=== PATIENT | male | born 1970 | race Caucasian/White ===

== ENCOUNTER 2019-08-18 08:51 | Emergency (ER) | payer BC, SELFPAY ==
[2019-08-18 09:00] VITALS: BP 159/108; PULSE 103; RESP 20; TEMP 36.6; O2SAT 97
--- NOTE | 2019-08-18 09:01 | ED_ITS ---
Entered by Rad Berumen, acting as scribe for HPI - Chest Pain General: Chief Complaint: Chest Pain Stated Complaint: CP SNYCOPE Time Seen by Provider: 08/18/19 09:05 History of Present Illness: HPI narrative: 49 yo male presents with chest pain. Pt states that he had a syncopal episode. Pt states that he has been nauseated. Pt states that he has a leaking heart valve. Pt seems lethargic. MD complaint: chest pain Associated symptoms: Reports nausea; Deny abdominal pain, dyspnea, palpitations or vomiting Review of Systems Eyes: Denies: change in vision, blurry vision, blind spots or eye redness ENMT: Denies: throat pain, uvular edema, enlarged tonsils, painful swallowing, hoarseness or mouth pain Card: Reports: chest pain; Denies: palpitations, irregular heart rhythm, edema, swelling of feet/ankles or lightheadedness Resp: Denies: shortness of breath, productive cough, non-productive cough, wheezing or stridor GI: Reports: nausea; Denies: abdominal pain, vomiting, vomiting blood, coffee grounds in vomit, difficulty swallowing or heartburn/indigestion : Denies: flank pain, difficulty urinating, painful urination or urinary frequency Musc: Denies: neck pain, back pain, extremity pain, extremity swelling or joint swelling Skin/Breast: Denies: rash, itching, redness, sensitivity to light or skin pain Neuro: Denies: headache, numbness in extremities, weakness in extremities or changes in sensation Psych: Denies: anxiety, depression, mood swings or panic attacks Endo: Denies: excessive urination, excessive thirst or tired all the time PFSH ED PFSH: Statuses (acute, chronic, etc) shown below reflect problem list status as previously entered and may not be historically accurate Medical History Encephalopathy (Acute) Sciatica (Acute) Social History Smoking and tobacco status: current every day smoker Substance/Drug Use: current Substance/Drug use type: Marijuana Physical Exam Const: COMMON NORMALS: no apparent distress, average body habitus, oriented x3, no limitations, healthy appearing, alert and well nourished HENMT: COMMON NORMALS: normocephalic, head/scalp atraumatic, hearing grossly normal bilaterally, external ears normal, EAC's normal, TM's normal bilaterally, external nose normal, nasal mucous membranes and turbinates normal, moist oral mucous membranes, oropharynx normal, dentition normal and gingiva normal HEAD & SCALP: normocephalic and atraumatic NOSE: external nose normal and nasal mucous membranes and turbinates normal EXTERNAL EAR: Yes external ears normal EXTERNAL AUDITORY CANAL: EAC's normal TYMPANIC MEMBRANE: TM's normal bilaterally THROAT: no uvular edema Eye: COMMON NORMALS: PERRL, EOMs intact bilaterally, conjunctivae normal, no scleral icterus, no papilledema, normal visual dwyer by confrontation and fundi normal bilaterally CONJUNCTIVA: Yes conjunctivae normal PUPIL: Yes PERRL DIRECT OPHTHALMOSCOPY: Yes no papilledema and Yes fundi normal bilaterally Neck/C-Spine: COMMON NORMALS: full ROM, no lymphadenopathy, supple, no meningeal signs, no JVD, thyroid normal and no carotid bruits THYROID: thyroid normal Chest: COMMONS NORMALS: inspection of chest normal and palpation of chest normal Resp: COMMON NORMALS: normal respiratory effort, no retractions, no use of accessory muscles, clear to auscultation bilaterally and percussion normal AUSCULTATION: clear to auscultation bilaterally PERCUSSION: percussion normal Cardio: COMMON NORMALS: no JVD, regular rate, regular rhythm, S1 normal heart sound, S2 normal heart sound, no gallops, no clicks, no murmurs, no rub and peripheral pulses 2+ throughout RATE: regular rate RHYTHM: regular rhythm HEART SOUNDS: S1 normal and S2 normal PERIPHERAL PULSES: pulses 2+ throughout GI: COMMON NORMALS: normal to inspection, nondistended, normoactive bowel sounds, soft to palpation, non-tender, no hepatosplenomegaly, no masses and no bruits PALPATION: Yes soft and Yes no hepatosplenomegaly : COMMON NORMALS: Yes no CVA tenderness BLADDER/KIDNEY EXAM: Yes no CVA tenderness Back/Pelvis: COMMON NORMALS: no CVA tenderness, thoracic and lumbar spine normal to inspection, no thoracic nor lumbar tenderness, thoraco-lumbar ROM nor mal and straight leg raise negative bilaterally Extremity: COMMON NORMALS: normal to inspection, full ROM, normal capillary refill, no joint enlargement, no clubbing, cyanosis or edema, no calf tenderness and no pedal edema Neuro: COMMON NORMALS: oriented x3 SENSORIUM/ORIENTATION: Yes alert MENINGEAL SIGNS: Yes no meningeal signs Skin: COMMON NORMALS: no rashes or lesions noted, no wounds, skin turgor normal, no jaundice, no petechiae and no mottling GENERAL SKIN EXAM: no rashes or lesions noted and turgor normal Course Vital Signs: Vital signs: Vital Signs Temperature 97.9 F 08/18/19 09:00 Pulse Rate 103 H 08/18/19 09:00 Respiratory Rate 20 H 08/18/19 09:00 Blood Pressure 159/108 08/18/19 09:00 Pulse Oximetry 97 08/18/19 09:00 MDM - Chest Pain Lab Data: Labs: Lab Results 08/18/19 08/18/19 08/18/19 Range/Units 09:15 09:15 09:15 WBC 13.5 H (4.0-10.0) 10^3/ uL RBC 4.15 (4.1-5.3) 10^6/u L Hgb 13.5 (11.7-16.6) g/dL Hct 40.2 L (42.0-52.0) % MCV 96.9 H (80-94) fL MCH 32.5 (28.0-34.0) pg MCHC 33.6 (30.0-36.0) g/dL RDW 12.9 (12.1-15.1) % Plt Count 309 (130-400) 10^3/c mm MPV 9.5 (7.4-10.4) fL Neut % (Auto) 61.1 % Lymph % (Auto) 30.2 % [place] % (Auto) 6.5 % Eos % (Auto) 1.3 % Baso % (Auto) 0.5 % Neut # (Auto) 8.3 H (1.8-7.7) 10^3/u L Lymph # (Auto) 4.1 (0.8-4.8) 10^3/u L [place] # (Auto) 0.9 (0.2-0.9) 10^3/u L Eos # (Auto) 0.2 (0.0-0.8) 10^3/u L Baso # (Auto) 0.1 (0.0-0.1) 10^3/u L Nucleated RBC % (a uto) 0 % Nucleated RBCs # 0.0 /100WBC Sodium 137 (136-145) mmol/L Potassium 3.6 (3.5-5.1) mmol/L Chloride 101 (98-107) mmol/L Carbon Dioxide 25 (22-29) mmol/L Anion Gap 14.6 (5-19) BUN 13 (6-20) mg/dL Creatinine 0.7 (0.7-1.2) mg/dL GFR Calculation 120.9 (90-130) mL/min Glucose 119 H (74-109) mg/dL Calcium 9.8 (8.5-10.5) mg/dL Total Bilirubin 0.3 (0.15-1.2) mg/dL AST 32 (0-40) U/L ALT 23 (0-41) U/L Alkaline Phosphata se 92 (40-130) IU/L Troponin T Baselin e 8 (0-15) ng/mL Troponin T 120 Min [place] (0-15) ng/mL Delta Troponin T (0-10) ABS# Total Protein 7.3 (6.6-8.7) g/dL Albumin 4.5 (3.5-5.2) g/dL Globulin 2.8 (1.3-4.6) g/dL Urine Color (Yellow) Urine Appearance (CLEAR) Urine pH (5-7) Ur Specific Gravit y (1.005-1.030) Urine Protein (Negative) Urine Glucose (UA) (Normal) Urine Ketones (Negative) Urine Occult Blood (Negative) Urine Nitrate (Negative) Urine Bilirubin (NEGATIVE) Urine Urobilinogen (Negative) mg/dL Ur Leukocyte [place] a[place] (Negative) Urine RBC (0-2) /hpf Urine WBC (0-5) /hpf Ur Squamous Epith Cells (0-5) Urine Bacteria (NONE) Urine Opiates Scre en (Negative) ng/mL Ur Barbiturates Sc reen (Negative) ng/mL Ur Phencyclidine S crn (Negative) ng/mL Ur Amphetamines Sc reen (Negative) ng/mL U Benzodiazepines Scrn (Negative) ng/mL Urine Cocaine Scre en (Negative) ng/mL U Marijuana (THC) Screen (Negative) ng/mL 08/18/19 08/18/19 08/18/19 Range/Units 10:46 10:46 11:22 WBC (4.0-10.0) 10^3/ uL RBC (4.1-5.3) 10^6/u L Hgb (11.7-16.6) g/dL Hct (42.0-52.0) % MCV (80-94) fL MCH (28.0-34.0) pg MCHC (30.0-36.0) g/dL RDW (12.1-15.1) % Plt Count (130-400) 10^3/c mm MPV (7.4-10.4) fL Neut % (Auto) % Lymph % (Auto) % [place] % (Auto) % Eos % (Auto) % Baso % (Auto) % Neut # (Auto) (1.8-7.7) 10^3/u L Lymph # (Auto) (0.8-4.8) 10^3/u L [place] # (Auto) (0.2-0.9) 10^3/u L Eos # (Auto) (0.0-0.8) 10^3/u L Baso # (Auto) (0.0-0.1) 10^3/u L Nucleated RBC % (a uto) % Nucleated RBCs # /100WBC Sodium (136-145) mmol/L Potassium (3.5-5.1) mmol/L Chloride (98-107) mmol/L Carbon Dioxide (22-29) mmol/L Anion Gap (5-19) BUN (6-20) mg/dL Creatinine (0.7-1.2) mg/dL GFR Calculation (90-130) mL/min Glucose (74-109) mg/dL Calcium (8.5-10.5) mg/dL Total Bilirubin (0.15-1.2) mg/dL AST (0-40) U/L ALT (0-41) U/L Alkaline Phosphata se (40-130) IU/L Troponin T Baselin e (0-15) ng/mL Troponin T 120 Min [place] 7.85 (0-15) ng/mL Delta Troponin T -0.15 L (0-10) ABS# Total Protein (6.6-8.7) g/dL Albumin (3.5-5.2) g/dL Globulin (1.3-4.6) g/dL Urine Color Yellow (Yellow) Urine Appearance Clear (CLEAR) Urine pH 7 (5-7) Ur Specific Gravit y 1.005 (1.005-1.030) Urine Protein Neg (Negative) Urine Glucose (UA) Norm (Normal) Urine Ketones Negative (Negative) Urine Occult Blood 2+ H (Negative) Urine Nitrate Negative (Negative) Urine Bilirubin Neg (NEGATIVE) Urine Urobilinogen Norm (Negative) mg/dL Ur Leukocyte [place] Negative (Negative) Urine RBC 5-10 H (0-2) /hpf Urine WBC 0-4 H (0-5) /hpf Ur Squamous Epith Cells 0-4 H (0-5) Urine Bacteria t (NONE) Urine Opiates Scre en Negative (Negative) ng/mL Ur Barbiturates Sc reen Negative (Negative) ng/mL Ur Phencyclidine S crn Negative (Negative) ng/mL Ur Amphetamines Sc reen Positive H (Negative) ng/mL U Benzodiazepines Scrn Negative (Negative) ng/mL Urine Cocaine Scre en Negative (Negative) ng/mL U Marijuana (THC) Screen Negative (Negative) ng/mL Discharge Plan Discharge Clinical Impression: Atypical chest pain Chest pain Qualifiers: Chest pain type: pleurodynia Qualified Code(s): R07.81 - Pleurodynia Condition: Stable Prescriptions: No Action No Known Home Medications RF: 0 Discharge Orders: Discharge Order (Routine); Ordered 08/18/19 Ordered By: Mitchell Decker Referrals: Tito Wu MD [Family Provider] - Coding Level of Care Code ED Statistics Intern for Chg Fwd Exam Problem Focused The documentation recorded by the Ata dia Kialy, accurately reflects the service I personally performed and the decisions made by , Mitchell Decker, Aug 18, 2019 08:51
--- NOTE | 2019-08-18 09:01 | PC.NURSE ---
EKG done at 0900 and shown to ER doctor
--- NOTE | 2019-08-18 09:03 | ECG_ITS ---
Measurements Intervals [place] Rate: 94 P: 77 TN: 172 QRS: 81 QRSD: 86 T: 69 QT: 360 QTc: 450 SINUS RHYTHM POSSIBLE LEFT ATRIAL ENLARGEMENT [-0.1mV P WAVE IN V1/V2] Compared to ECG 05/16/2019 03:13:35 No significant changes Electronically Signed On 08-18-2019 11:37:52 [employer]IG[employer] MACHINE FEEDER by Germain Byers M.D. [id number] f
--- NOTE | 2019-08-18 09:04 | XR_ITS ---
WS: [id number] Portable AP upright chest, 08/18/2019 Clinical Data: cough/congestion Comparison: Portable chest, 05/16/2019. Findings: No nodules, masses or effusions are seen. The heart is normal. The pulmonary vascularity is not increased. No pneumonia or pneumothorax is seen. Monitor leads on the chest wall. XR/XR chest 1V portable [id number] Impression: Negative chest.
--- NOTE | 2019-08-18 09:05 | W.ED.CHESTPA ---
HPI - Chest Pain General: Chief Complaint: Chest Pain Stated Complaint: CP SNYCOPE Time Seen by Provider: 08/18/19 09:05 [facility] ED PFSH: Statuses (acute, chronic, etc) shown below reflect problem list status as previously entered and may not be historically accurate Medical History Encephalopathy (Acute) Sciatica (Acute) Social History Smoking and tobacco status: current every day smoker Course Vital Signs: Vital signs: Vital Signs Temperature 97.9 F 08/18/19 09:00 Pulse Rate 103 H 08/18/19 09:00 Respiratory Rate 20 H 08/18/19 09:00 Blood Pressure 159/108 08/18/19 09:00 Pulse Oximetry 97 08/18/19 09:00 Discharge Plan Discharge Prescriptions: No Action No Known Home Medications RF: 0 Coding Level of Care Code ED Discharge Coordinator for Rosina Valencia
[2019-08-18 09:36] LABS: Basophils # 0.1 10^3/uL (0.0-0.1); Basophils % 0.5 %; Eosinophils # 0.2 10^3/uL (0.0-0.8); Eosinophils % 1.3 %; Hematocrit 40.2 % (42.0-52.0); Hemoglobin 13.5 g/dL (11.7-16.6); Lymphocytes # 4.1 10^3/uL (0.8-4.8); Lymphocytes % 30.2 %; Mean Corpuscular HGB Conc 33.6 g/dL (30.0-36.0); Mean Corpuscular Hemoglobin 32.5 pg (28.0-34.0); Mean Corpuscular Volume 96.9 fL (80-94); Mean Platelet Volume 9.5 fL (7.4-10.4); Monocytes # 0.9 10^3/uL (0.2-0.9); Monocytes % 6.5 %; Neutrophils # 8.3 10^3/uL (1.8-7.7); Neutrophils % 61.1 %; Nucleated Red Blood Cells % 0 %; Platelet Count 309 10^3/cmm (130-400); Red Blood Count 4.15 10^6/uL (4.1-5.3); Red Cell Distribution Width 12.9 % (12.1-15.1); White Blood Count 13.5 10^3/uL (4.0-10.0)
[2019-08-18 09:45] LABS: Alanine Aminotransferase 23 U/L (0-41); Albumin Level 4.5 g/dL (3.5-5.2); Alkaline Phosphatase 92 IU/L (40-130); Anion Gap 14.6 (5-19); Aspartate Amino Transferase 32 U/L (0-40); Blood Urea Nitrogen 13 mg/dL (6-20); Calcium 9.8 mg/dL (8.5-10.5); Carbon Dioxide 25 mmol/L (22-29); Chloride 101 mmol/L (98-107); Globulin 2.8 g/dL (1.3-4.6); Glomerular Filtration Rate 120.9 mL/min (90-130); Glucose 119 mg/dL (74-109); Potassium 3.6 mmol/L (3.5-5.1); Sodium 137 mmol/L (136-145); Total Bilirubin 0.3 mg/dL (0.15-1.2); Total Protein 7.3 g/dL (6.6-8.7)
[2019-08-18 09:47] LABS: Troponin(5th) Baseline 8 ng/mL (0-15)
[2019-08-18 11:27] LABS: Add Urine Microscopic? YES; Bilirubin Urine Neg (NEGATIVE); Blood Urine 2+ (Negative); Glucose Urine UA Norm (Normal); Ketones Urine Negative (Negative); Leukocyte Esterase Urine Negative (Negative); Nitrate Urine Negative (Negative); Protein Urine Neg (Negative); Specific Gravity, Urine 1.005 (1.005-1.030); Urine Appearance Clear (CLEAR); Urine Color Yellow (Yellow); Urobilinogen Urine Norm (Negative); pH Urine 7 (5-7)
[2019-08-18 11:35] LABS: Bacteria Urine t; Squamous Epithelial Cell Urine 0-4 (0-5); WBC Urine 0-4 /hpf (0-5)
[2019-08-18 11:36] LABS: Add Urine Culture? No
[2019-08-18 11:54] LABS: Barbiturates Screen Urine Negative (Negative); Benzodiazepines Screen Urine Negative (Negative); Cocaine Screen Urine Negative (Negative); Opiate Screen Urine Negative (Negative); PCP Screen Urine Negative (Negative); THC Screen Urine Negative (Negative)
[2019-08-18 12:05] LABS: Amphetamines Screen Urine Positive (Negative)
[2019-08-18 12:06] LABS: Troponin 5 2HR 7.85 ng/mL (0-15); Troponin 5 2HR Delta -0.15 ABS# (0-10)
--- NOTE | 2019-08-18 12:26 | ECG_ITS ---
Measurements Intervals [place] Rate: 73 P: 79 SD: 187 QRS: 86 QRSD: 85 T: 70 QT: 399 QTc: 441 SINUS RHYTHM POSSIBLE LEFT ATRIAL ENLARGEMENT [-0.1mV P WAVE IN V1/V2] Compared to ECG 08/18/2019 08:59:25 No significant changes Electronically Signed On 08-18-2019 17:36:56 [employer] ARCHITECT by Germain Byers M.D. [id number] f
[2019-08-18 12:29] VITALS: PULSE 79; RESP 14; O2SAT 96
== END 2019-08-18 12:36 | disposition home or self-care (01) ==
PROVIDERS: Physician Assistant; Emergency Provider Family Medicine; Family Provider Family Medicine
DX: R07.81 Pleurodynia (principal); F17.210 Nicotine dependence, cigarettes, uncomplicated
CPT/HCPCS: 36415; 71045; 80053; 80307; 81001; 84484; 85025; 93005; 99281

== ENCOUNTER 2020-03-11 18:07 | Emergency (ER) | payer SELFPAY ==
--- NOTE | 2020-03-11 18:14 | XRR_ITS ---
PROCEDURE INFORMATION: Exam: XR Chest, 1 View Exam date and time: 03/11/2020 6:28 PM Age: 49 years old Clinical indication: Chest pain. TECHNIQUE: Imaging protocol: XR of the chest Views: 1 view. COMPARISON: CR XR chest 1V portable [id number] 08/18/2019 9:20 AM FINDINGS: Lungs: No lung consolidation or pulmonary edema. Pleural space: No pleural effusion or pneumothorax. Heart/Mediastinum: The cardiac silhouette is not enlarged. The mediastinal contours are normal. Bones/joints: No acute osseous abnormality. XR/XR chest 1V portable [id number] IMPRESSION: No acute abnormality.
--- NOTE | 2020-03-11 18:14 | ECG_ITS ---
[facility] Test Date: 2020-03-11 Pat Name: Joe Ramirez Department: Room: Gender: Male Numerical Control Operator: : 1970 Requested By: Jr Martinez Order Number: [id number] Amrando MD: Shai Dangelo M.D. Measurements Intervals [place] Rate: 100 P: 78 IL: 156 QRS: 81 QRSD: 83 T: 71 QT: 350 QTc: 451 Interpretive Statements SINUS TACHYCARDIA POSSIBLE LEFT ATRIAL ENLARGEMENT [-0.1mV P WAVE IN V1/V2] ABNORMAL RHYTHM ECG Compared to ECG 08/18/2019 11:00:06 Sinus rhythm no longer present Electronically Signed On 03-11-2020 18:29:44 CDT by Shai Dangelo M.D. [id number] f
[2020-03-11 18:25] VITALS: BP 124/72; PULSE 75; RESP 15; TEMP 36.9; O2SAT 94; BMI 22.8
--- NOTE | 2020-03-11 18:26 | CTR_ITS ---
PROCEDURE INFORMATION: Exam: CT Angiography Chest With Contrast Exam date and time: 03/11/2020 6:45 PM Age: 49 years old Clinical indication: Right-sided chest pain; Patient HX: R pleuritic cp w hypoxia TECHNIQUE: Imaging protocol: Computed tomographic angiography of the chest with intravenous contrast. 3D rendering (Not supervised by radiologist): MIP and/or 3D reconstructed images were created by the technologist. Radiation optimization: All CT scans at this facility use at least one of these dose optimization techniques: automated exposure control; mA and/or kV adjustment per patient size (includes targeted exams where dose is matched to clinical indication); or iterative reconstruction. Contrast material: OMNI 350; Contrast volume: 95 ml; Contrast route: INTRAVENOUS (IV); COMPARISON: CR XR chest 1V portable [id number] 03/11/2020 6:18 PM RADIATION DOSE METRICS: Total DLP (mGy-cm): 534.63 FINDINGS: There are degenerative changes of the spine. The lungs are clear of infiltrate. There is no pleural effusion. There is no pneumothorax. There are no suspicious pulmonary nodules. The central airways are normal in caliber. Small axillary lymph nodes are present. There is no mediastinal adenopathy. Small hilar lymph nodes are present. Interrogation of the pulmonary arteries in multiple planes shows no evidence for pulmonary embolism. The aorta is normal in caliber with no evidence for aneurysm or dissection. The heart is normal in size. There is no evidence for right heart failure. The upper abdominal structures are unremarkable. CT/CT angio chest PE protcl [id number] IMPRESSION: 1. No evidence for pulmonary embolism. 2. No focal infiltrates. Radiation Dose CTDIVOL = (mGy): DLP = 534.63 (mGy-cm)
--- NOTE | 2020-03-11 18:26 | CTR_ITS ---
PROCEDURE INFORMATION: Exam: CT Head Without Contrast Exam date and time: 03/11/2020 6:45 PM Age: 49 years old Clinical indication: Altered mental status/memory loss; Confusion or disorientation; Patient HX: AMS w hypoxia TECHNIQUE: Imaging protocol: Computed tomography of the head without contrast. Radiation optimization: All CT scans at this facility use at least one of these dose optimization techniques: automated exposure control; mA and/or kV adjustment per patient size (includes targeted exams where dose is matched to clinical indication); or iterative reconstruction. COMPARISON: CT head wo con* [id number] 12/09/2018 4:32 PM RADIATION DOSE METRICS: Total DLP (mGy-cm): 1396.66 FINDINGS: The ventricles, sulci and basilar cisterns appear normal for the patient's stated age. There is no evidence of mass, hemorrhage or infarct. No extra-axial fluid collections are identified. There is no midline shift. There is no evidence of fracture. The visualized paranasal sinuses are well-aerated. CT/CT head wo con* [id number] IMPRESSION: No evidence for acute infarct, mass or hemorrhage. Radiation Dose CTDIVOL = (mGy): DLP = 1396.66 (mGy-cm)
[2020-03-11 18:27] LABS: Glucose Point of Care 82 mg/dL (70-110)
[2020-03-11 18:37] LABS: Basophils # 0.1 10^3/uL (0.0-0.1); Basophils % 0.7 %; Eosinophils # 0.4 10^3/uL (0.0-0.8); Eosinophils % 2.4 %; Hematocrit 39.2 % (42.0-52.0); Hemoglobin 12.7 g/dL (11.7-16.6); Lymphocytes # 5.2 10^3/uL (0.8-4.8); Lymphocytes % 33.1 %; Mean Corpuscular HGB Conc 32.4 g/dL (30.0-36.0); Mean Corpuscular Hemoglobin 32.5 pg (28.0-34.0); Mean Corpuscular Volume 100.3 fL (80-94); Mean Platelet Volume 9.8 fL (7.4-10.4); Monocytes # 1.1 10^3/uL (0.2-0.9); Monocytes % 7.1 %; Neutrophils # 8.81 10^3/uL (1.8-7.7); Neutrophils % 56.4 %; Nucleated Red Blood Cells % 0 %; Platelet Count 291 10^3/cmm (130-400); Red Blood Count 3.91 10^6/uL (4.1-5.3); Red Cell Distribution Width 13.6 % (12.1-15.1); White Blood Count 15.6 10^3/uL (4.0-10.0)
[2020-03-11] MEDS: sodium chloride 0.9% 1,000 ML 999 ML IV (18:42)
[2020-03-11 18:51] LABS: Troponin(5th) Baseline 6 ng/L (0-15)
[2020-03-11 18:51] LABS: ABG PCO2 40.1 mmHg (35-45); ABG PH Result 7.46 (7.35-7.45); Arterial Blood Gas Hematocrit 38.3 % (42-52); Base Excess ABG 4.2 mmol/L (-2.0-2.0); Blood Gas Allen Test Pos; Blood Gas Operator Identificat CAK; Blood Gas Sample Site Radial, left; Blood Gas Sample Type Arterial; HCO3 ABG 28.4 mmol/L (22-26); HGB O2 Sat 86.6 % (95-100); Methemoglobin 1.1 % (0.4-1.5); Oxygen Device ROOM AIR; PO2 ABG 62.4 mmHg (80.0-100.0); Total Hemoglobin 12.5 g/dL (14-18)
--- NOTE | 2020-03-11 18:58 | ED_ITS ---
HPI - General Adult General: Chief complaint: General Medical Stated complaint: SOB;CP Time Seen by Provider: 03/11/20 18:23 History of Present Illness: HPI narrative: 49-year-old male with a history of right-sided pleuritic type chest pain. He began to shortness of breath, and was more lethargic at home. His does not know if he had fallen or not. He did not admit to any falls. He is somewhat lethargic, and answers only simple questions appropriately. He does localize to tenderness. He opens his eyes to voice. No fever, no cough. Just shortness of breath and pain. No exposure to coronavirus. Onset (ago): day(s) Location: chest Radiation: non-radiation Severity: severe Quality: aching and sharp Pain Consistency: constant Associated symptoms: Reports chest pain, confusion and dyspnea; Deny cough, headache(s), nausea, rash, palpitations or vomiting Review of Systems Const: Denies: fever(s) or chills Eyes: Denies: change in vision ENMT: Denies: swelling of lips/tongue or sinus pain Card: Reports: chest pain; Denies: palpitations, irregular heart rhythm or edema Resp: Reports: dyspnea GI: Denies: nausea or vomiting : Denies: difficulty urinating or hematuria Musc: Denies: back pain Skin/Breast: Denies: rash or erythema Neuro: Reports: confusion; Denies: headache(s), dizziness or vertigo Psych: Denies: anxiety [facility] PFSH: Medical History (Updated 03/11/20 @ 21:50 by Harlan Byrd DO) Encephalopathy Sciatica Social History Smoking and tobacco status: current every day smoker Physical Exam Const: EXAM LIMITATIONS: altered mental status GENERAL APPEARANCE: in distress and ill appearing HENMT: HEAD & SCALP: normal to inspection Eye: COMMON NORMALS: Equal, round and reactive pupils present and EOMs intact bilaterally PUPIL: Yes Equal, round and reactive pupils present Chest: COMMONS NORMALS: normal inspection of the chest CHEST: Yes localized rib tenderness with anteroposterior compression and Yes tenderness (Right lower chest wall) Resp: AUSCULTATION: rhonchi, wheezes right lower and breath sounds present Cardio: COMMON NORMALS: regular rate, regular rhythm and Peripheral pulses 2+ throughout RATE: regular rate RHYTHM: regular rhythm PERIPHERAL PULSES: Peripheral pulses 2+ throughout GI: INSPECTION: Yes normal to inspection, No abdominal wall ecchymosis and No abdominal distension PALPATION: No Tenderness to palpation present (GI) Neuro: HAMZAH COMA SCALE: document GCS findings Hamzah coma scale eye opening: To sound Fowler coma scale verbal response: Words Hamzah coma scale motor response: Localising Hamzah coma scale total score: 11 SENSORIUM/ORIENTATION: Yes somnolent Course Vital Signs: Vital signs: Vital Signs Temperature 98.5 F 03/11/20 18:25 Pulse Rate 78 03/11/20 21:57 Respiratory Rate 16 03/11/20 21:57 Blood Pressure 124/78 03/11/20 21:57 Pulse Oximetry 99 03/11/20 21:57 MDM - General Adult MDM Narrative: Medical decision making narrative: 49-year-old male who presents with lethargy, shortness of breath, and right-sided pleuritic pain. He was placed on oxygen. His mental status improved significantly. He was taken back off oxygen. He was given a breathing treatment without much improvement. Toradol seemed to help his pain. He was tender to the right chest wall. Because of changes in mental status, CT of the head was performed which is negative. Because of the pleuritic pain, and shortness of breath, CTA of the chest was ordered, which was negative as well. His hemoglobin is 12.7. His white blood cell count is elevated, but with a normal differential. His potassium level is mildly low. He has a negative urine drug screen. His other laboratory is benign, including 2 EKGs and 2 troponins. His EKG shows a normal sinus rhythm with a normal axis and a rate of [address] changes. With resolution of his symptoms, save the chest wall tenderness, and no ear cause, he will be diagnosed with pleuritic chest pain. Lab Data: Labs: Lab Results 03/11/20 03/11/20 03/11/20 Range/Units 18:22 18:24 18:24 WBC 15.6 H (4.0-10.0) 10^3/ uL RBC 3.91 L (4.1-5.3) 10^6/u L Hgb 12.7 (11.7-16.6) g/dL Hct 39.2 L (42.0-52.0) % MCV 100.3 H (80-94) fL MCH 32.5 (28.0-34.0) pg MCHC 32.4 (30.0-36.0) g/dL RDW 13.6 (12.1-15.1) % Plt Count 291 (130-400) 10^3/c mm MPV 9.8 (7.4-10.4) fL Neut % (Auto) 56.4 % Lymph % (Auto) 33.1 % [place] % (Auto) 7.1 % Eos % (Auto) 2.4 % Baso % (Auto) 0.7 % Neut # (Auto) 8.81 H (1.8-7.7) 10^3/u L Lymph # (Auto) 5.2 H (0.8-4.8) 10^3/u L [place] # (Auto) 1.1 H (0.2-0.9) 10^3/u L Eos # (Auto) 0.4 (0.0-0.8) 10^3/u L Baso # (Auto) 0.1 (0.0-0.1) 10^3/u L Nucleated RBC % (a uto) 0 % Nucleated RBCs # 0.0 /100WBC Specimen Type Sample Site ABG pH (7.35-7.45) ABG pCO2 (35-45) mmHg ABG pO2 (80.0-100.0) mmH g ABG HCO3 (22-26) mmol/L ABG Base Excess (-2.0-2.0) mmol/ L Marty Test Hematocrit (42-52) % Hgb O2 Saturation (95-100) % Carboxyhemoglobin (0.4-20.1) %THgb Methemoglobin (0.4-1.5) % Total Hemoglobin (14-18) g/dL O2 Delivery Device FiO2 % Collection Development Librarian ID Sodium 138 (136-145) mmol/L Potassium 3.4 L (3.5-5.1) mmol/L Chloride 101 (98-107) mmol/L Carbon Dioxide 28 (22-29) mmol/L Anion Gap 12.4 (5-19) BUN 9 (6-20) mg/dL Creatinine 0.8 (0.7-1.2) mg/dL GFR Calculation 103.6 (90-130) mL/min Glucose 86 (65-115) mg/dL POC Glucose 82 (70-110) mg/dL Calculated Osmolal ity 281 L (285-295) mOsm/k g Lactic Acid (0.5-2.2) mmol/L Calcium 8.4 L (8.5-10.5) mg/dL Total Bilirubin 0.2 (0.15-1.2) mg/dL AST 12 (0-40) U/L ALT 12 (0-41) U/L Alkaline Phosphata se 72 (40-130) IU/L Troponin T Baselin e (0-15) ng/L Troponin T 120 Min [place] (0-15) ng/L Delta Troponin T (0-10) ABS# NT-Pro-B Natriuret Pep 87 (0-125) pg/mL Total Protein 6.5 L (6.6-8.7) g/dL Albumin 4.1 (3.5-5.2) g/dL Globulin 2.4 (1.3-4.6) g/dL Urine Color (Yellow) Urine Appearance (CLEAR) Urine pH (5-7) Ur Specific Gravit y (1.005-1.030) Urine Protein (Negative) Urine Glucose (UA) (Normal) Urine Ketones (Negative) Urine Blood (Negative) Urine Nitrate (Negative) Urine Bilirubin (NEGATIVE) Urine Urobilinogen (Negative) mg/dL Ur Leukocyte Linda ase (Negative) Urine RBC (0-2) /hpf Urine WBC (0-5) /hpf Ur Squamous Epith Cells (0-5) Amorphous Sediment Urine Bacteria (NONE) Urine Opiates Scre en (Negative) ng/mL Ur Barbiturates Sc reen (Negative) ng/mL Ur Phencyclidine S crn (Negative) ng/mL Ur Amphetamines Sc reen (Negative) ng/mL U Benzodiazepines Scrn (Negative) ng/mL Urine Cocaine Scre en (Negative) ng/mL U Marijuana (THC) Screen (Negative) ng/mL 03/11/20 03/11/20 03/11/20 Range/Units 18:24 18:33 18:40 WBC (4.0-10.0) 10^3/ uL RBC (4.1-5.3) 10^6/u L Hgb (11.7-16.6) g/dL Hct (42.0-52.0) % MCV (80-94) fL MCH (28.0-34.0) pg MCHC (30.0-36.0) g/dL RDW (12.1-15.1) % Plt Count (130-400) 10^3/c mm MPV (7.4-10.4) fL Neut % (Auto) % Lymph % (Auto) % [place] % (Auto) % Eos % (Auto) % Baso % (Auto) % Neut # (Auto) (1.8-7.7) 10^3/u L Lymph # (Auto) (0.8-4.8) 10^3/u L [place] # (Auto) (0.2-0.9) 10^3/u L Eos # (Auto) (0.0-0.8) 10^3/u L Baso # (Auto) (0.0-0.1) 10^3/u L Nucleated RBC % (a uto) % Nucleated RBCs # /100WBC Specimen Type Arterial Sample Site Radial, left ABG pH 7.46 H (7.35-7.45) ABG pCO2 40.1 (35-45) mmHg ABG pO2 62.4 L (80.0-100.0) mmH g ABG HCO3 28.4 H (22-26) mmol/L ABG Base Excess 4.2 H (-2.0-2.0) mmol/ L Marty Test Pos Hematocrit 38.3 L (42-52) % Hgb O2 Saturation 86.6 L (95-100) % Carboxyhemoglobin 8.0 (0.4-20.1) %THgb Methemoglobin 1.1 (0.4-1.5) % Total Hemoglobin 12.5 L (14-18) g/dL O2 Delivery Device Room air FiO2 21.0 % Collection Development Librarian ID Cak Sodium (136-145) mmol/L Potassium (3.5-5.1) mmol/L Chloride (98-107) mmol/L Carbon Dioxide (22-29) mmol/L Anion Gap (5-19) BUN (6-20) mg/dL Creatinine (0.7-1.2) mg/dL GFR Calculation (90-130) mL/min Glucose (65-115) mg/dL POC Glucose (70-110) mg/dL Calculated Osmolal ity (285-295) mOsm/k g Lactic Acid 1.5 (0.5-2.2) mmol/L Calcium (8.5-10.5) mg/dL Total Bilirubin (0.15-1.2) mg/dL AST (0-40) U/L ALT (0-41) U/L Alkaline Phosphata se (40-130) IU/L Troponin T Baselin e 6 (0-15) ng/L Troponin T 120 Min [place] (0-15) ng/L Delta Troponin T (0-10) ABS# NT-Pro-B Natriuret Pep (0-125) pg/mL Total Protein (6.6-8.7) g/dL Albumin (3.5-5.2) g/dL Globulin (1.3-4.6) g/dL Urine Color (Yellow) Urine Appearance (CLEAR) Urine pH (5-7) Ur Specific Gravit y (1.005-1.030) Urine Protein (Negative) Urine Glucose (UA) (Normal) Urine Ketones (Negative) Urine Blood (Negative) Urine Nitrate (Negative) Urine Bilirubin (NEGATIVE) Urine Urobilinogen (Negative) mg/dL Ur Leukocyte Linda ase (Negative) Urine RBC (0-2) /hpf Urine WBC (0-5) /hpf Ur Squamous Epith Cells (0-5) Amorphous Sediment Urine Bacteria (NONE) Urine Opiates Scre en (Negative) ng/mL Ur Barbiturates Sc reen (Negative) ng/mL Ur Phencyclidine S crn (Negative) ng/mL Ur Amphetamines Sc reen (Negative) ng/mL U Benzodiazepines Scrn (Negative) ng/mL Urine Cocaine Scre en (Negative) ng/mL U Marijuana (THC) Screen (Negative) ng/mL 03/11/20 03/11/20 03/11/20 Range/Units 18:54 18:54 20:50 WBC (4.0-10.0) 10^3/ uL RBC (4.1-5.3) 10^6/u L Hgb (11.7-16.6) g/dL Hct (42.0-52.0) % MCV (80-94) fL MCH (28.0-34.0) pg MCHC (30.0-36.0) g/dL RDW (12.1-15.1) % Plt Count (130-400) 10^3/c mm MPV (7.4-10.4) fL Neut % (Auto) % Lymph % (Auto) % [place] % (Auto) % Eos % (Auto) % Baso % (Auto) % Neut # (Auto) (1.8-7.7) 10^3/u L Lymph # (Auto) (0.8-4.8) 10^3/u L [place] # (Auto) (0.2-0.9) 10^3/u L Eos # (Auto) (0.0-0.8) 10^3/u L Baso # (Auto) (0.0-0.1) 10^3/u L Nucleated RBC % (a uto) % Nucleated RBCs # /100WBC Specimen Type Sample Site ABG pH (7.35-7.45) ABG pCO2 (35-45) mmHg ABG pO2 (80.0-100.0) mmH g ABG HCO3 (22-26) mmol/L ABG Base Excess (-2.0-2.0) mmol/ L Marty Test Hematocrit (42-52) % Hgb O2 Saturation (95-100) % Carboxyhemoglobin (0.4-20.1) %THgb Methemoglobin (0.4-1.5) % Total Hemoglobin (14-18) g/dL O2 Delivery Device FiO2 % Collection Development Librarian ID Sodium (136-145) mmol/L Potassium (3.5-5.1) mmol/L Chloride (98-107) mmol/L Carbon Dioxide (22-29) mmol/L Anion Gap (5-19) BUN (6-20) mg/dL Creatinine (0.7-1.2) mg/dL GFR Calculation (90-130) mL/min Glucose (65-115) mg/dL POC Glucose (70-110) mg/dL Calculated Osmolal ity (285-295) mOsm/k g Lactic Acid (0.5-2.2) mmol/L Calcium (8.5-10.5) mg/dL Total Bilirubin (0.15-1.2) mg/dL AST (0-40) U/L ALT (0-41) U/L Alkaline Phosphata se (40-130) IU/L Troponin T Baselin e (0-15) ng/L Troponin T 120 Min [place] 6.00 (0-15) ng/L Delta Troponin T 0 (0-10) ABS# NT-Pro-B Natriuret Pep (0-125) pg/mL Total Protein (6.6-8.7) g/dL Albumin (3.5-5.2) g/dL Globulin (1.3-4.6) g/dL Urine Color Yellow (Yellow) Urine Appearance Clear (CLEAR) Urine pH 6 (5-7) Ur Specific Gravit y 1.015 (1.005-1.030) Urine Protein Neg (Negative) Urine Glucose (UA) Norm (Normal) Urine Ketones Negative (Negative) Urine Blood 2+ H (Negative) Urine Nitrate Negative (Negative) Urine Bilirubin Neg (NEGATIVE) Urine Urobilinogen Norm (Negative) mg/dL Ur Leukocyte Linda ase Negative (Negative) Urine RBC 0-4 H (0-2) /hpf Urine WBC 0-4 H (0-5) /hpf Ur Squamous Epith Cells 0-4 H (0-5) Amorphous Sediment Not Reportable Urine Bacteria Trace (NONE) Urine Opiates Scre en Negative (Negative) ng/mL Ur Barbiturates Sc reen Negative (Negative) ng/mL Ur Phencyclidine S crn Negative (Negative) ng/mL Ur Amphetamines Sc reen Negative (Negative) ng/mL U Benzodiazepines Scrn Negative (Negative) ng/mL Urine Cocaine Scre en Negative (Negative) ng/mL U Marijuana (THC) Screen Negative (Negative) ng/mL Discharge Plan Discharge Patient Disposition: Home Clinical Impression: Pleurisy Condition: Stable Prescriptions: New ketorolac 10 mg tablet 10 mg PO Q6H PRN (Reason: pain) Qty: 10 RF: 0 Discharge Orders: Discharge Order (Routine); Ordered 03/11/20 Ordered By: Harlan Byrd Referrals: Tito Wu MD [Primary Care Provider] - 4-7 days Discharge Diet: Advance as tolerated Discharge Activity: Increase activity as tolerated Patient Instructions: Pleurisy (ED) Activity Restrictions/Additional Instructions: Return for worsening pain despite treatment, worsening shortness of breath, cough, fever greater than 100, sputum production, other concerning symptoms. Use your home inhaler every 4 hours while awake for the next 48 hours, then as needed. Use other medication as needed for pain. Discharge Date/Time: 03/11/20 22:14 Coding Level of Care Code ED Procedure Manager for Rosina Fwd Exam Comprehensive
[2020-03-11 19:02] LABS: Lactic Sepsis W/Reflex 1.5 mmol/L (0.5-2.2)
[2020-03-11 19:12] LABS: Alanine Aminotransferase 12 U/L (0-41); Albumin Level 4.1 g/dL (3.5-5.2); Alkaline Phosphatase 72 IU/L (40-130); Anion Gap 12.4 (5-19); Aspartate Amino Transferase 12 U/L (0-40); Blood Urea Nitrogen 9 mg/dL (6-20); Calcium 8.4 mg/dL (8.5-10.5); Carbon Dioxide 28 mmol/L (22-29); Chloride 101 mmol/L (98-107); Globulin 2.4 g/dL (1.3-4.6); Glomerular Filtration Rate 103.6 mL/min (90-130); Glucose 86 mg/dL (65-115); NT Pro B Type Natriuretic Pept 87 pg/mL (0-125); Osmolality Calculated 281 mOsm/kg (285-295); Potassium 3.4 mmol/L (3.5-5.1); Sodium 138 mmol/L (136-145); Total Bilirubin 0.2 mg/dL (0.15-1.2); Total Protein 6.5 g/dL (6.6-8.7)
[2020-03-11] MEDS: iohexol 350 mg/mL 100 mL Btl IV (19:17)
[2020-03-11 19:33] VITALS: BP 124/72; PULSE 87; RESP 14; O2SAT 94
[2020-03-11 20:09] LABS: Urine Appearance Clear (CLEAR); Urine Color Yellow (Yellow)
[2020-03-11 20:10] LABS: Add Urine Microscopic? YES; Amphetamines Screen Urine Negative (Negative); Barbiturates Screen Urine Negative (Negative); Benzodiazepines Screen Urine Negative (Negative); Bilirubin Urine Neg (NEGATIVE); Blood Urine 2+ (Negative); Cocaine Screen Urine Negative (Negative); Glucose Urine UA Norm (Normal); Ketones Urine Negative (Negative); Leukocyte Esterase Urine Negative (Negative); Nitrate Urine Negative (Negative); Opiate Screen Urine Negative (Negative); PCP Screen Urine Negative (Negative); Protein Urine Neg (Negative); Specific Gravity, Urine 1.015 (1.005-1.030); THC Screen Urine Negative (Negative); Urobilinogen Urine Norm (Negative); pH Urine 6 (5-7)
[2020-03-11 20:12] LABS: Add Urine Culture? No; Bacteria Urine TRACE; RBC Urine 0-4 /hpf (0-2); Squamous Epithelial Cell Urine 0-4 (0-5); WBC Urine 0-4 /hpf (0-5)
--- NOTE | 2020-03-11 20:14 | ECG_ITS ---
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 Measurements Intervals [place] Rate: 68 P: 79 CO: 198 QRS: 85 QRSD: 89 T: 77 QT: 420 QTc: 448 Interpretive Statements SINUS RHYTHM Compared to ECG 03/11/2020 18:20:57 Sinus tachycardia no longer present Electronically Signed On 03-12-2020 12:02:36 CDT by Shai Dangelo M.D. [id number]
[2020-03-11 20:30] VITALS: BP 126/87; PULSE 78; RESP 16; O2SAT 96
[2020-03-11] MEDS: ketorolac 30 mg/mL INJ IVP (20:31)
[2020-03-11] MEDS: ipratropium-albuterol 3 mL Neb INHALATION (21:16)
[2020-03-11 21:17] VITALS: PULSE 70; RESP 16; O2SAT 94
[2020-03-11 21:20] VITALS: PULSE 70
[2020-03-11 21:23] LABS: Troponin 5 2HR Delta 0 ABS# (0-10)
[2020-03-11 21:57] VITALS: BP 124/78; PULSE 78; RESP 16; O2SAT 99
[2020-03-11] MEDS: dexamethasone 4 mg/mL INJ 8 MG IVP (22:13)
== END 2020-03-11 22:14 | disposition home or self-care (01) ==
PROVIDERS: Emergency Medicine; Emergency Provider Emergency Medicine; PCP Family Medicine
DX: R09.1 Pleurisy (principal); F17.210 Nicotine dependence, cigarettes, uncomplicated
CPT/HCPCS: 12345; 36416; 36600; 70450; 71045; 71275; 80048; 80053; 80306; 81001; 82805; 82962; 83605; 83880; 84484; 85025; 87040; 93005; 94640; 96361; 96374; 96375; 99283; 99284; J1100; J1885; J7030; Q9967

== ENCOUNTER 2020-09-19 18:12 | Emergency (ER) | payer SELFPAY ==
[2020-09-19 18:18] VITALS: BP 143/85; PULSE 84; RESP 18; TEMP 36.6; O2SAT 99; BMI 20.9
--- NOTE | 2020-09-19 18:59 | CTR_ITS ---
PROCEDURE INFORMATION: Exam: CT Maxillofacial Without Contrast Exam date and time: 09/19/2020 7:02 PM Age: 50 years old Clinical indication: Injury or trauma; Fall; Blunt trauma (contusions or hematomas); Nose; Additional info: Fall, face injury TECHNIQUE: Imaging protocol: Computed tomography images of the face without contrast. Total images: 289 Radiation optimization: All CT scans at this facility use at least one of these dose optimization techniques: automated exposure control; mA and/or kV adjustment per patient size (includes targeted exams where dose is matched to clinical indication); or iterative reconstruction. COMPARISON: No relevant prior studies available. RADIATION DOSE METRICS: Total DLP (mGy-cm): 754.45 FINDINGS: Orbital cavity: Orbits are normal. Globes are unremarkable. Bones/joints: No acute fracture. Paranasal sinuses: Inclusion cyst floor of the left maxillary sinus. No visible evidence for active paranasal sinus disease. Soft tissues: Unremarkable. CT/CT facial bones wo con* [id number] IMPRESSION: No visible facial bone fracture. Radiation Dose CTDIVOL = (mGy): DLP = 754.45 (mGy-cm)
--- NOTE | 2020-09-19 18:59 | XR_ITS ---
WS: [id number] Portable AP upright chest, 09/19/2020 Clinical Data: syncope Comparison: Portable chest, 03/11/2020. Findings: No nodules, masses or effusions are seen. The heart is normal. The pulmonary vascularity is not increased. No pneumonia or pneumothorax is seen. There are monitor leads on the lower chest wall . XR/XR chest 1V portable [id number] Impression: Negative chest.
--- NOTE | 2020-09-19 18:59 | CTR_ITS ---
PROCEDURE INFORMATION: Exam: CT Head Without Contrast Exam date and time: 09/19/2020 7:02 PM Age: 50 years old Clinical indication: Injury or trauma; Other: Syncope; Blunt trauma (contusions or hematomas); With loss of consciousness; Additional info: Syncope, head injury TECHNIQUE: Imaging protocol: Computed tomography of the head without contrast. Total images: 191 Radiation optimization: All CT scans at this facility use at least one of these dose optimization techniques: automated exposure control; mA and/or kV adjustment per patient size (includes targeted exams where dose is matched to clinical indication); or iterative reconstruction. COMPARISON: CT head wo con* [id number] 03/11/2020 6:59 PM RADIATION DOSE METRICS: Total DLP (mGy-cm): 746.29 FINDINGS: Brain: Normal. No hemorrhage. Unremarkable white matter. No mass effect. Cerebral ventricles: No ventriculomegaly. Bones/joints: Unremarkable. No acute fracture. Paranasal sinuses: Visualized sinuses are unremarkable. No fluid levels. Mastoid air cells: Visualized mastoid air cells are well aerated. Soft tissues: Unremarkable. CT/CT head wo con* [id number] IMPRESSION: No acute intracranial abnormality. Radiation Dose CTDIVOL = (mGy): DLP = 746.29 (mGy-cm)
--- NOTE | 2020-09-19 19:00 | ECG_ITS ---
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 Measurements Intervals [place] Rate: 73 P: 79 WV: 183 QRS: 84 QRSD: 82 T: 78 QT: 372 QTc: 412 Interpretive Statements SINUS RHYTHM Compared to ECG 03/11/2020 20:17:24 No significant changes Electronically Signed On 09-19-2020 20:57:04 BANK CREDIT CARD COLLECTION CLERK by Araceli Price M.D. [email or web address]/[id number]
--- NOTE | 2020-09-19 19:08 | PC.NURSE ---
checked in on patient, due to assigned nurse unable to respond. Patient appeared A&Ox4, reports no physical issues. stated he had a syncopal episode at work earlier today and his co-workers witnessed it. after work he decided to come and get checked out. Patient reports he was previously diagnosed with a heart condition and needs a pacemaker. patient reported he feels fine now, but wanted to be evaluated. Patient reports having had a syncopal episode in the past x2.
--- NOTE | 2020-09-19 19:14 | PC.NURSE ---
Patient taken to CT
--- NOTE | 2020-09-19 19:22 | PC.NURSE ---
Patient back on floor from CT
[2020-09-19 20:00] LABS: Basophils # 0.1 10^3/uL (0.0-0.1); Basophils % 0.8 %; Eosinophils # 0.2 10^3/uL (0.0-0.8); Eosinophils % 1.3 %; Hematocrit 43.7 % (42.0-52.0); Hemoglobin 14.5 g/dL (11.7-16.6); Lymphocytes # 2.5 10^3/uL (0.8-4.8); Lymphocytes % 21.4 %; Mean Corpuscular HGB Conc 33.2 g/dL (30.0-36.0); Mean Corpuscular Hemoglobin 32.8 pg (28.0-34.0); Mean Corpuscular Volume 98.9 fL (80-94); Mean Platelet Volume 9.8 fL (7.4-10.4); Monocytes # 0.9 10^3/uL (0.2-0.9); Neutrophils % 68.2 %; Nucleated Red Blood Cells % 0 %; Platelet Count 325 10^3/cmm (130-400); Red Blood Count 4.42 10^6/uL (4.1-5.3); Red Cell Distribution Width 13.1 % (12.1-15.1); White Blood Count 11.7 10^3/uL (4.0-10.0)
[2020-09-19 20:04] LABS: Troponin(5th) Baseline 6 ng/L (0-15)
[2020-09-19 20:09] LABS: Alanine Aminotransferase 11 U/L (0-41); Albumin Level 4.5 g/dL (3.5-5.2); Alkaline Phosphatase 82 IU/L (40-130); Anion Gap 12.9 (5-19); Aspartate Amino Transferase 16 U/L (0-40); Blood Urea Nitrogen 12 mg/dL (6-20); Calcium 9.4 mg/dL (8.5-10.5); Carbon Dioxide 28 mmol/L (22-29); Chloride 100 mmol/L (98-107); Creatine Phosphokinase 106 U/L (39-308); Globulin 2.5 g/dL (1.3-4.6); Glomerular Filtration Rate 120.4 mL/min (90-130); Glucose 90 mg/dL (65-115); NT Pro B Type Natriuretic Pept 35 pg/mL (0-125); Osmolality Calculated 281 mOsm/kg (285-295); Potassium 4.9 mmol/L (3.5-5.1); Sodium 136 mmol/L (136-145); Total Bilirubin 0.4 mg/dL (0.15-1.2)
[2020-09-19 20:56] VITALS: BP 150/85; PULSE 73; RESP 17; O2SAT 93
--- NOTE | 2020-09-19 21:00 | ECG_ITS ---
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 Measurements Intervals [place] Rate: 80 P: 73 VT: 165 QRS: 78 QRSD: 86 T: 70 QT: 386 QTc: 447 Interpretive Statements SINUS RHYTHM Compared to ECG 09/19/2020 19:07:20 No significant changes Electronically Signed On 09-19-2020 21:03:39 PROCESS ANALYST by Araceli Price M.D. [email or web address] [email or web address] Networksbucyrus community hospitalVenuCare [facility]/store/OM/[id number]
[2020-09-19 21:03] VITALS: BP 130/79; BP 135/96; BP 140/88; PULSE 103; PULSE 77; PULSE 89
--- NOTE | 2020-09-19 21:11 | W.ED.SYNCOPE ---
HPI - Syncope General: Chief Complaint: Syncope Stated Complaint: fainted Time Seen by Provider: 09/19/20 18:33 Source: patient Mode of arrival: ambulatory Limitations: no limitations History of Present Illness: HPI narrative: This 50 year old male was at work. 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 It lasted only a few seconds. He said he has had 2 episodes of syncope in the last 2 years. He states that he has been offered a pacemaker by the [employer] in the past but he has declined it. He does not know why he was offered a pacemaker. He is feeling fine now and back to his baseline. He denies any chest pain, dizziness, SOB. He has right facial pain. MD complaint: loss of consciousness and felt faint Onset (ago): hour(s) (6) -: second(s) Prodromal symptoms: none Witnessed: Yes - by Bystander Context: other (after eating lunch) Injuries sustained associated with event: face Associated symptoms: Deny abdominal pain, chest pain, fever(s), headache(s), lightheadedness, nausea, short of breath, vertigo or weakness History: previous syncopal episode (two in the last 2 years.) Review of Systems General: Reports: 10 or more systems reviewed and unremarkable except in HPI and below Const: Denies: fever(s) Eyes: Denies: change in vision or blurry vision ENMT: Denies: throat pain, enlarged tonsils, odynophagia, hoarseness, mouth pain or swelling of lips/tongue Card: Denies: chest pain or lightheadedness Resp: Denies: dyspnea, productive cough or non-productive cough GI: Denies: abdominal pain : Denies: flank pain, dysuria, urinary frequency, urinary urgency or urinary hesitancy Musc: Denies: neck pain, back pain or extremity swelling Skin/Breast: Denies: rash, pruritus or erythema Neuro: Denies: headache(s) or vertigo Endo: Denies: polyuria, polydipsia or tired all the time PFS ED PFSH: Medical History Encephalopathy Sciatica Social History Smoking and tobacco status: current every day smoker Physical Exam Const: COMMON NORMALS: no acute distress, average body habitus, patient oriented x3, no limitations, healthy appearing, alert and well nourished HENMT: COMMON NORMALS: normocephalic, atraumatic and moist oral mucous membranes HEAD & SCALP: normocephalic and atraumatic Neck/C-Spine: COMMON NORMALS: no meningeal signs and no JVD Resp: COMMON NORMALS: normal respiratory effort, No retractions, No use of accessory muscles, clear to auscultation bilaterally and percussion normal AUSCULTATION: clear to auscultation bilaterally PERCUSSION: percussion normal Cardio: COMMON NORMALS: no JVD, regular rate, regular rhythm, S1 normal heart sound present, S2 normal heart sound present, No gallops present (Cardio), No clicks present (Cardio), No murmurs present (Cardio), No rub (Cardio) and Peripheral pulses 2+ throughout RATE: regular rate RHYTHM: regular rhythm HEART SOUNDS: S1 normal heart sound present and S2 normal heart sound present PERIPHERAL PULSES: Peripheral pulses 2+ throughout GI: COMMON NORMALS: Normal to inspection, nondistended, normoactive bowel sounds present, Soft to palpation, non-tender, No hepatosplenomegaly present, no masses and no bruits PALPATION: Yes Soft to palpation and Yes No hepatosplenomegaly present Extremity: COMMON NORMALS: normal to inspection, full ROM, capillary refill normal, no calf tenderness and no pedal edema Neuro: COMMON NORMALS: patient oriented x3 SENSORIUM/ORIENTATION: Yes alert MENINGEAL SIGNS: Yes no meningeal signs Skin: COMMON NORMALS: no rashes or lesions noted, no wounds, turgor normal, no jaundice, no petechiae and no mottling GENERAL SKIN EXAM: no rashes or lesions noted and turgor normal Course Reevaluation(s): Reevaluation #1: Discussed his labs and imaging findings with him. Negative for acute findings. He has a low HEART score, and is a low risk for MACE in the next 6 weeks. EKG was normal. Orthostatic vital signs negative. He is discharged home with no new orders. Time: 21:11 Vital Signs: Vital signs: Vital Signs Temperature 97.9 F 09/19/20 18:18 Pulse Rate 69 09/19/20 21:35 Respiratory Rate 19 H 09/19/20 21:35 Blood Pressure 130/84 09/19/20 21:35 Pulse Oximetry 96 09/19/20 21:35 MDM - Syncope MDM Narrative: Medical decision making narrative: Patient who had a syncopal episode that is likely vasovagal in etiology. Evaluation is unremarkable and he is discharged home with no new orders. HEART score is 1 for age so he has a 1.7% risk of a major adverse cardiac event in the next 6 weeks. He is discharged home with no new orders. Medical Records: Attestation: I reviewed the patient's medical records. Lab Data: Attestation: I reviewed the patient's lab results. Labs: Lab Results 09/19/20 09/19/20 09/19/20 Range/Units 19:34 19:34 19:34 WBC 11.7 H (4.0-10.0) 10^3/ uL RBC 4.42 (4.1-5.3) 10^6/u L Hgb 14.5 (11.7-16.6) g/dL Hct 43.7 (42.0-52.0) % MCV 98.9 H (80-94) fL MCH 32.8 (28.0-34.0) pg MCHC 33.2 (30.0-36.0) g/dL RDW 13.1 (12.1-15.1) % Plt Count 325 (130-400) 10^3/c mm MPV 9.8 (7.4-10.4) fL Neut % (Auto) 68.2 % Lymph % (Auto) 21.4 % Tyrrell % (Auto) 8.0 % Eos % (Auto) 1.3 % Baso % (Auto) 0.8 % Neut # (Auto) 8.00 H (1.8-7.7) 10^3/u L Lymph # (Auto) 2.5 (0.8-4.8) 10^3/u L Tyrrell # (Auto) 0.9 (0.2-0.9) 10^3/u L Eos # (Auto) 0.2 (0.0-0.8) 10^3/u L Baso # (Auto) 0.1 (0.0-0.1) 10^3/u L Nucleated RBC % (a uto) 0 % Nucleated RBCs # 0.0 /100WBC Sodium 136 (136-145) mmol/L Potassium 4.9 (3.5-5.1) mmol/L Chloride 100 (98-107) mmol/L Carbon Dioxide 28 (22-29) mmol/L Anion Gap 12.9 (5-19) BUN 12 (6-20) mg/dL Creatinine 0.7 (0.7-1.2) mg/dL GFR Calculation 120.4 (90-130) mL/min Glucose 90 (65-115) mg/dL Calculated Osmolal ity 281 L (285-295) mOsm/k g Calcium 9.4 (8.5-10.5) mg/dL Total Bilirubin 0.4 (0.15-1.2) mg/dL AST 16 (0-40) U/L ALT 11 (0-41) U/L Alkaline Phosphata se 82 (40-130) IU/L Creatine Kinase 106 (39-308) U/L Troponin T Baselin e 6 (0-15) ng/L Troponin T 120 Min [place] Troponin T NT-Pro-B Natriuret Pep 35 (0-125) pg/mL Total Protein 7.0 (6.6-8.7) g/dL Albumin 4.5 (3.5-5.2) g/dL Globulin 2.5 (1.3-4.6) g/dL 09/19/20 Range/Units Unknown WBC (4.0-10.0) 10^3/ uL RBC (4.1-5.3) 10^6/u L Hgb (11.7-16.6) g/dL Hct (42.0-52.0) % MCV (80-94) fL MCH (28.0-34.0) pg MCHC (30.0-36.0) g/dL RDW (12.1-15.1) % Plt Count (130-400) 10^3/c mm MPV (7.4-10.4) fL Neut % (Auto) % Lymph % (Auto) % Tyrrell % (Auto) % Eos % (Auto) % Baso % (Auto) % Neut # (Auto) (1.8-7.7) 10^3/u L Lymph # (Auto) (0.8-4.8) 10^3/u L Tyrrell # (Auto) (0.2-0.9) 10^3/u L Eos # (Auto) (0.0-0.8) 10^3/u L Baso # (Auto) (0.0-0.1) 10^3/u L Nucleated RBC % (a uto) % Nucleated RBCs # /100WBC Sodium (136-145) mmol/L Potassium (3.5-5.1) mmol/L Chloride (98-107) mmol/L Carbon Dioxide (22-29) mmol/L Anion Gap (5-19) BUN (6-20) mg/dL Creatinine (0.7-1.2) mg/dL GFR Calculation (90-130) mL/min Glucose (65-115) mg/dL Calculated Osmolal ity (285-295) mOsm/k g Calcium (8.5-10.5) mg/dL Total Bilirubin (0.15-1.2) mg/dL AST (0-40) U/L ALT (0-41) U/L Alkaline Phosphata se (40-130) IU/L Creatine Kinase (39-308) U/L Troponin T Baselin e (0-15) ng/L Troponin T 120 Min [place] Cancelled Delta Troponin T Cancelled NT-Pro-B Natriuret Pep (0-125) pg/mL Total Protein (6.6-8.7) g/dL Albumin (3.5-5.2) g/dL Globulin (1.3-4.6) g/dL Imaging Data^: Other CT: Attestation: I personally reviewed and interpreted this imaging study as follows: Radiologist's impression: [address] [address] [address] Scan Report Signed Patient: Joe Ramirezarnolt #: [id number] : 1970Acct#:[id number] Age/Sex: 50 / MADM Date: 09/19/20 Loc: ERRoom/Bed: Attending Dr: Ordering Provider/Ordering MD: Evelina Dunn MD, [facility] Date of Service: 09/19/20 Procedure(s): CT facial bones wo con* [id number] Accession Number(s): [id number] Report Number: [id number] PROCEDURE INFORMATION: Exam: CT Maxillofacial Without Contrast Exam date and time: 09/19/2020 7:02 PM Age: 50 years old Clinical indication: Injury or trauma; Fall; Blunt trauma (contusions or hematomas); Nose; Additional info: Fall, face injury TECHNIQUE: Imaging protocol: Computed tomography images of the face without contrast. Total images: 289 Radiation optimization: All CT scans at this facility use at least one of these dose optimization techniques: automated exposure control; mA and/or kV adjustment per patient size (includes targeted exams where dose is matched to clinical indication); or iterative reconstruction. COMPARISON: No relevant prior studies available. RADIATION DOSE METRICS: Total DLP (mGy-cm): 754.45 FINDINGS: Orbital cavity: Orbits are normal. Globes are unremarkable. Bones/joints: No acute fracture. Paranasal sinuses: Inclusion cyst floor of the left maxillary sinus. No visible evidence for active paranasal sinus disease. Soft tissues: Unremarkable. CT/CT facial bones wo con* [id number] IMPRESSION: No visible facial bone fracture. Radiation Dose CTDIVOL = (mGy): DLP = 754.45 (mGy-cm) Dictated By:Kameron Hameed Signed By:Maite Hameed Date/Time:09/19/201927 DD/ 26 CT Head: Attestation: I personally reviewed and interpreted this imaging study as follows: Radiologist's impression: [address] [address] [address] Scan Report Signed Patient: Joe Ramirez #: [id number] : 1970Acct#:[id number] Age/Sex: 50 / MADM Date: 09/19/20 Loc: ERRoom/Bed: Attending Dr: Ordering Provider/Ordering MD: Evelina Dunn MD, [facility] Date of Service: 09/19/20 Procedure(s): CT head wo con* [id number] Accession Number(s): [id number] Report Number: [id number] PROCEDURE INFORMATION: Exam: CT Head Without Contrast Exam date and time: 09/19/2020 7:02 PM Age: 50 years old Clinical indication: Injury or trauma; Other: Syncope; Blunt trauma (contusions or hematomas); With loss of consciousness; Additional info: Syncope, head injury TECHNIQUE: Imaging protocol: Computed tomography of the head without contrast. Total images: 191 Radiation optimization: All CT scans at this facility use at least one of these dose optimization techniques: automated exposure control; mA and/or kV adjustment per patient size (includes targeted exams where dose is matched to clinical indication); or iterative reconstruction. COMPARISON: CT head wo con* [id number] 03/11/2020 6:59 PM RADIATION DOSE METRICS: Total DLP (mGy-cm): 746.29 FINDINGS: Brain: Normal. No hemorrhage. Unremarkable white matter. No mass effect. Cerebral ventricles: No ventriculomegaly. Bones/joints: Unremarkable. No acute fracture. Paranasal sinuses: Visualized sinuses are unremarkable. No fluid levels. Mastoid air cells: Visualized mastoid air cells are well aerated. Soft tissues: Unremarkable. CT/CT head wo con* [id number] IMPRESSION: No acute intracranial abnormality. Radiation Dose CTDIVOL = (mGy): DLP = 746.29 (mGy-cm) Dictated By:Kameron Hameed Signed By:Kameron HameedSignolga Date/Time:09/19/201924 DD/ 22 EKG Data^: EKG 1: Attestation: I personally reviewed and interpreted this EKG as follows: EKG interpretation date: 09/19/20 EKG interpretation time: 20:57 Prior EKG tracings: not available for review Interpretation: Normal sinus rhythm HR 80 BPM normal axis no ST changes. Discharge Plan Discharge Patient Disposition: Home Clinical Impression: Vasovagal syncope Condition: Stable Prescriptions: Continued Aleve 220 mg Tablet 220 mg PO BID PRN (Reason: PAIN/HEADACHE) RF: 0 Discharge Orders: Discharge ED (Routine); Ordered 09/19/20 Ordered By: Evelina Dunn Referrals: Pippa Wu PA [Primary Care Provider] - 1-3 days Discharge Diet: Usual diet Discharge Activity: Increase activity as tolerated Patient Instructions: Syncope (ED) Activity Restrictions/Additional Instructions: Return for any new or worsening symptoms. Follow-up with your primary care provider within 3 days. Drink plenty of fluids to keep well-hydrated. Stand Alone Forms: Work/School Release Coding Level of Care Code ED Director for Chg Fwd Exam Comprehensive
[2020-09-19 21:35] VITALS: BP 130/84; PULSE 69; RESP 19; O2SAT 96
== END 2020-09-19 21:35 | disposition home or self-care (01) ==
PROVIDERS: Emergency Provider Family Medicine; PCP Physician Assistant
DX: R55 Syncope and collapse (principal); F17.210 Nicotine dependence, cigarettes, uncomplicated
CPT/HCPCS: 70450; 70486; 71045; 80053; 82550; 83880; 84484; 85025; 93005; 99283

== ENCOUNTER 2020-09-23 14:17 | Emergency (ER) | payer SELFPAY ==
[2020-09-23 14:22] VITALS: BP 158/99; PULSE 84; RESP 16; TEMP 36.8; O2SAT 98; BMI 19.3
--- NOTE | 2020-09-23 14:50 | ECG_ITS ---
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
--- NOTE | 2020-09-23 14:50 | XRR_ITS ---
PROCEDURE INFORMATION: Exam: XR Chest Exam date and time: 09/23/2020 3:21 PM Age: 50 years old Clinical indication: Shortness of breath; Additional info: Reduced breath sounds TECHNIQUE: Imaging protocol: XR of the chest Views: 1 view. Total images: 1 COMPARISON: CR XR chest 1V portable [id number] 09/19/2020 7:07 PM FINDINGS: Lungs: Unremarkable. No consolidation. Pleural spaces: Unremarkable. No pleural effusion. No pneumothorax. Heart/Mediastinum: Unremarkable. No cardiomegaly. Bones/joints: Unremarkable. XR/XR chest 1V portable [id number] IMPRESSION: No acute findings.
--- NOTE | 2020-09-23 15:10 | W.ED.DIZZY ---
HPI - Dizziness General: Chief Complaint: Dizziness Stated Complaint: Dizziness Time Seen by Provider: 09/23/20 14:44 History of Present Illness: HPI Narrative: The patient is a 50-year-old male seen here 4 days ago for the same complaint of syncope. Today he was at work doing nothing and he felt lightheaded and passed out for a few seconds . He says they spent 30 minutes trying to get him to come to the ER and reluctantly he did. He now feels normal in the ER but is wondering why he keeps passing out. Work-up on September 19 was unremarkable. He says he has had an echocardiogram by Dr. Price 2 years ago and was told he had a leaky valve and needed a pacemaker. He is not sure of anything more than that and declined the pacemaker. MD elicited complaint: dizziness Timing: sudden onset Severity: similar to previous episodes Exacerbating factors: nothing Relieving factors: nothing Associated symptoms: Reports no associated symptoms and syncope; Denies chest pain, headache(s), nasal congestion or palpitations Associated neuro symptoms: Reports no associated symptoms; Deny confusion or numbness in extremities Review of Systems General: Reports: 10 or more systems reviewed and unremarkable except in HPI and below Const: Denies: fatigue Eyes: Denies: change in vision, blurry vision or eye redness ENMT: Denies: throat pain, swelling of lips/tongue, ear or mastoid pain or nasal congestion Card: Reports: syncope; Denies: chest pain, palpitations, irregular heart rhythm, edema, dyspnea on exertion or orthopnea Resp: Denies: dyspnea, productive cough or non-productive cough GI: Denies: abdominal pain, diarrhea or GI cramping : Denies: flank pain, urinary frequency or urinary urgency Musc: Denies: neck pain, back pain, extremity pain, joint pain, joint redness, limited range of motion or muscle weakness Skin/Breast: Denies: rash, pruritus, erythema, skin pain or skin tenderness Neuro: Denies: headache(s), numbness in extremities, weakness in extremities, sensory changes, difficulty walking, dizziness, confusion or Slurred speech present Psych: Denies: anxiety or depression Endo: Denies: polyuria All/Imm: Denies: urticaria, throat swelling or tongue swelling PFS ED PFSH: Medical History (Updated 09/23/20 @ 18:32 by Russel Farr MD) Encephalopathy Sciatica Social History (Reviewed 09/19/20 @ 21:56 by Evelina Dunn MD, [facility] [place]) Smoking and tobacco status: current every day smoker Physical Exam Const: COMMON NORMALS: no acute distress, average body habitus, patient oriented x3, no limitations, healthy appearing, alert and well nourished GENERAL APPEARANCE: cooperative, comfortable, well kempt and well developed ORIENTATION/CONSCIOUSNESS: Yes awake, Yes oriented to person, Yes oriented to place and Yes oriented to time HENMT: COMMON NORMALS: normocephalic, external ears normal and Normal external nose present HEAD & SCALP: normal to inspection and normocephalic NOSE: Normal external nose present EXTERNAL EAR: Yes external ears normal MOUTH: Normal oral and palatal mucosa present THROAT: posterior oropharynx normal Eye: COMMON NORMALS: Equal, round and reactive pupils present and EOMs intact bilaterally GENERAL EYE: appearance normal, both eyes and all related structures PUPIL: Yes Equal, round and reactive pupils present Neck/C-Spine: COMMON NORMALS: full ROM, no lymphadenopathy, no meningeal signs and no JVD GENERAL: Yes normal visual inspection Lymph: LYMPHATIC: no lymphadenopathy noted Chest: COMMONS NORMALS: normal inspection of the chest and normal palpation of entire chest wall Resp: COMMON NORMALS: normal respiratory effort, No retractions, No use of accessory muscles, clear to auscultation bilaterally and percussion normal EFFORT & INSPECTION: Yes able to speak in complete sentences AUSCULTATION: clear to auscultation bilaterally PERCUSSION: percussion normal Cardio: COMMON NORMALS: no JVD, regular rate, regular rhythm, S1 normal heart sound present, S2 normal heart sound present and Peripheral pulses 2+ throughout RATE: regular rate RHYTHM: regular rhythm HEART SOUNDS: S1 normal heart sound present and S2 normal heart sound present PERIPHERAL PULSES: Peripheral pulses 2+ throughout GI: COMMON NORMALS: Normal to inspection, nondistended, normoactive bowel sounds present, Soft to palpation, non-tender and no masses INSPECTION: Yes normal to inspection PALPATION: Yes Soft to palpation : COMMON NORMALS: Yes no CVA tenderness BLADDER/KIDNEY EXAM: Yes no CVA tenderness Back/Pelvis: COMMON NORMALS: no CVA tenderness, thoracic and lumbar spine normal to inspection, no thoracic nor lumbar tenderness and thoraco-lumbar ROM normal Extremity: COMMON NORMALS: normal to inspection, full ROM, capillary refill normal, no joint enlargement and no pedal edema GENERAL: Yes normal exam except as noted Neuro: COMMON NORMALS: patient oriented x3, CN's II-XII intact bilaterally, moves all extremities, no focal motor deficits, no sensory deficits noted and gait normal SENSORIUM/ORIENTATION: Yes alert, Yes oriented to person, Yes oriented to place and Yes oriented to time MENINGEAL SIGNS: Yes no meningeal signs Psych: COMMON NORMALS: mental status grossly normal, Normal thought process present, cooperative, normal affect and speech normal APPEARANCE: Yes well kempt ATTITUDE: Yes calm SPEECH: Yes normal speech THOUGHT PROCESS: Normal thought process present Skin: COMMON NORMALS: no rashes or lesions noted GENERAL SKIN EXAM: no rashes or lesions noted Course Vital Signs: Vital signs: Vital Signs Temperature 98.2 F 09/23/20 14:22 Pulse Rate 75 09/23/20 18:00 Respiratory Rate 15 09/23/20 18:00 Blood Pressure 146/86 09/23/20 18:00 Pulse Oximetry 97 09/23/20 18:00 MDM - Dizziness MDM Narrative: Medical decision making narrative: The patient had another syncopal episode with no symptoms in the ED. Cause is again unclear. Recommended he follow-up with cardiology. He has seen Dr. Price in the past. I have placed a case management referral to help him get a appointment with him. He has a primary care doctor appointment later this week which is also appropriate. Recommended rechecking his urine at that time as he has microscopic hematuria in multiple urinalysis. Return to the ER with worsening symptoms Lab Data: Labs: Lab Results 09/23/20 09/23/20 09/23/20 Range/Units 15:35 15:35 15:35 WBC 9.7 (4.0-10.0) 10^3/ uL RBC 4.13 (4.1-5.3) 10^6/u L Hgb 13.7 (11.7-16.6) g/dL Hct 41.2 L (42.0-52.0) % MCV 99.8 H (80-94) fL MCH 33.2 (28.0-34.0) pg MCHC 33.3 (30.0-36.0) g/dL RDW 13.0 (12.1-15.1) % Plt Count 311 (130-400) 10^3/c mm MPV 9.5 (7.4-10.4) fL Neut % (Auto) 59.4 % Lymph % (Auto) 28.9 % [place] % (Auto) 8.3 % Eos % (Auto) 2.1 % Baso % (Auto) 1.1 % Neut # (Auto) 5.77 (1.8-7.7) 10^3/u L Lymph # (Auto) 2.8 (0.8-4.8) 10^3/u L [place] # (Auto) 0.8 (0.2-0.9) 10^3/u L Eos # (Auto) 0.2 (0.0-0.8) 10^3/u L Baso # (Auto) 0.1 (0.0-0.1) 10^3/u L Nucleated RBC % (a uto) 0 % Nucleated RBCs # 0.0 /100WBC D-Dimer 0.33 (0-0.59) ug/mIFE U Sodium 139 (136-145) mmol/L Potassium 4.2 (3.5-5.1) mmol/L Chloride 102 (98-107) mmol/L Carbon Dioxide 29 (22-29) mmol/L Anion Gap 12.2 (5-19) BUN 10 (6-20) mg/dL Creatinine 0.9 (0.7-1.2) mg/dL GFR Calculation 90.1 (90-130) mL/min Glucose 94 (65-115) mg/dL Calculated Osmolal ity 287 (285-295) mOsm/k g Calcium 9.0 (8.5-10.5) mg/dL Total Bilirubin 0.3 (0.15-1.2) mg/dL AST 15 (0-40) U/L ALT 10 (0-41) U/L Alkaline Phosphata se 83 (40-130) IU/L Troponin T Baselin e (0-15) ng/L Troponin T 120 Min [place] (0-15) ng/L Delta Troponin T (0-10) ABS# NT-Pro-B Natriuret Pep 177 H (0-125) pg/mL Total Protein 6.5 L (6.6-8.7) g/dL Albumin 4.2 (3.5-5.2) g/dL Globulin 2.3 (1.3-4.6) g/dL Urine Color (Yellow) Urine Appearance (CLEAR) Urine pH (5-7) Ur Specific Gravit y (1.005-1.030) Urine Protein (Negative) Urine Glucose (UA) (Normal) Urine Ketones (Negative) Urine Blood (Negative) Urine Nitrate (Negative) Urine Bilirubin (Negative) Prot Sulfosalicyli c Acd (Negative) Urine Urobilinogen (Negative) mg/dL Ur Leukocyte [place] a[place] (Negative) Urine RBC (0-2) /hpf Urine WBC (0-5) /hpf Ur Squamous Epith Cells (0-5) /hpf Amorphous Sediment Urine Bacteria (NONE) /hpf 09/23/20 09/23/20 09/23/20 Range/Units 15:35 16:00 17:30 WBC (4.0-10.0) 10^3/ uL RBC (4.1-5.3) 10^6/u L Hgb (11.7-16.6) g/dL Hct (42.0-52.0) % MCV (80-94) fL MCH (28.0-34.0) pg MCHC (30.0-36.0) g/dL RDW (12.1-15.1) % Plt Count (130-400) 10^3/c mm MPV (7.4-10.4) fL Neut % (Auto) % Lymph % (Auto) % [place] % (Auto) % Eos % (Auto) % Baso % (Auto) % Neut # (Auto) (1.8-7.7) 10^3/u L Lymph # (Auto) (0.8-4.8) 10^3/u L [place] # (Auto) (0.2-0.9) 10^3/u L Eos # (Auto) (0.0-0.8) 10^3/u L Baso # (Auto) (0.0-0.1) 10^3/u L Nucleated RBC % (a uto) % Nucleated RBCs # /100WBC D-Dimer (0-0.59) ug/mIFE U Sodium (136-145) mmol/L Potassium (3.5-5.1) mmol/L Chloride (98-107) mmol/L Carbon Dioxide (22-29) mmol/L Anion Gap (5-19) BUN (6-20) mg/dL Creatinine (0.7-1.2) mg/dL GFR Calculation (90-130) mL/min Glucose (65-115) mg/dL Calculated Osmolal ity (285-295) mOsm/k g Calcium (8.5-10.5) mg/dL Total Bilirubin (0.15-1.2) mg/dL AST (0-40) U/L ALT (0-41) U/L Alkaline Phosphata se (40-130) IU/L Troponin T Baselin e 6 (0-15) ng/L Troponin T 120 Min [place] 6.00 (0-15) ng/L Delta Troponin T 0 (0-10) ABS# NT-Pro-B Natriuret Pep (0-125) pg/mL Total Protein (6.6-8.7) g/dL Albumin (3.5-5.2) g/dL Globulin (1.3-4.6) g/dL Urine Color Straw (Yellow) Urine Appearance Clear (CLEAR) Urine pH 8 H (5-7) Ur Specific Gravit y 1.010 (1.005-1.030) Urine Protein Neg (Negative) Urine Glucose (UA) Norm (Normal) Urine Ketones Negative (Negative) Urine Blood 3+ H (Negative) Urine Nitrate Negative (Negative) Urine Bilirubin Neg (Negative) Prot Sulfosalicyli c Acd Negative (Negative) Urine Urobilinogen Norm (Negative) mg/dL Ur Leukocyte [place] a[place] Negative (Negative) Urine RBC 15-25 H (0-2) /hpf Urine WBC None (0-5) /hpf Ur Squamous Epith Cells None (0-5) /hpf Amorphous Sediment Not Reportable Urine Bacteria None (NONE) /hpf Discharge Plan Discharge Patient Disposition: Home Clinical Impression: Vasovagal syncope, Asymptomatic microscopic hematuria Condition: Stable Prescriptions: No Action naproxen sodium [Aleve] 220 mg Tablet 440 mg PO PRN RF: 0 Discharge Orders: Discharge ED (Routine); Ordered 09/23/20 Ordered By: Russel Farr Referrals: Pippa Wu PA [Primary Care Provider] - Patient Instructions: Hematuria - Male, Syncope (ED), Opioid Safety Activity Restrictions/Additional Instructions: The cause of your syncope is unclear. Please follow-up with Dr. Price this week to have a follow-up visit and help determine the cause of your passing out. Also follow-up with your primary care doctor tomorrow as you already have scheduled. Return to the ER with worsening symptoms. Drink lots of fluids and have your urine rechecked at your doctors as you have a small amount of blood in your urine. If it does not clear up sometimes this is a signal that there is a cancer. Please make sure you get it rechecked after drinking lots of fluids tomorrow. Coding Level of Care Code ED Agent for Rosina Fwd Exam Comprehensive
[2020-09-23 15:41] LABS: Basophils # 0.1 10^3/uL (0.0-0.1); Basophils % 1.1 %; Eosinophils # 0.2 10^3/uL (0.0-0.8); Eosinophils % 2.1 %; Hematocrit 41.2 % (42.0-52.0); Hemoglobin 13.7 g/dL (11.7-16.6); Lymphocytes # 2.8 10^3/uL (0.8-4.8); Lymphocytes % 28.9 %; Mean Corpuscular HGB Conc 33.3 g/dL (30.0-36.0); Mean Corpuscular Hemoglobin 33.2 pg (28.0-34.0); Mean Corpuscular Volume 99.8 fL (80-94); Mean Platelet Volume 9.5 fL (7.4-10.4); Monocytes # 0.8 10^3/uL (0.2-0.9); Monocytes % 8.3 %; Neutrophils # 5.77 10^3/uL (1.8-7.7); Neutrophils % 59.4 %; Nucleated Red Blood Cells % 0 %; Platelet Count 311 10^3/cmm (130-400); Red Blood Count 4.13 10^6/uL (4.1-5.3); White Blood Count 9.7 10^3/uL (4.0-10.0)
[2020-09-23 15:56] LABS: D Dimer 0.33 ug/mIFEU (0-0.59)
[2020-09-23 16:00] VITALS: BP 148/93; PULSE 69; RESP 19; O2SAT 99
[2020-09-23 16:07] LABS: Troponin(5th) Baseline 6 ng/L (0-15)
[2020-09-23 16:15] LABS: Alanine Aminotransferase 10 U/L (0-41); Albumin Level 4.2 g/dL (3.5-5.2); Alkaline Phosphatase 83 IU/L (40-130); Anion Gap 12.2 (5-19); Aspartate Amino Transferase 15 U/L (0-40); Blood Urea Nitrogen 10 mg/dL (6-20); Carbon Dioxide 29 mmol/L (22-29); Chloride 102 mmol/L (98-107); Globulin 2.3 g/dL (1.3-4.6); Glomerular Filtration Rate 90.1 mL/min (90-130); Glucose 94 mg/dL (65-115); NT Pro B Type Natriuretic Pept 177 pg/mL (0-125); Osmolality Calculated 287 mOsm/kg (285-295); Potassium 4.2 mmol/L (3.5-5.1); Sodium 139 mmol/L (136-145); Total Bilirubin 0.3 mg/dL (0.15-1.2); Total Protein 6.5 g/dL (6.6-8.7)
[2020-09-23] MEDS: albuterol 8 gm MDI 2 PUFF INHALATION (16:24)
[2020-09-23 16:26] VITALS: PULSE 87; RESP 16; O2SAT 94
[2020-09-23 16:28] VITALS: PULSE 90
[2020-09-23 16:29] LABS: Add Urine Microscopic? YES; Bilirubin Urine Neg (Negative); Blood Urine 3+ (Negative); Glucose Urine UA Norm (Normal); Ketones Urine Negative (Negative); Leukocyte Esterase Urine Negative (Negative); Nitrate Urine Negative (Negative); Protein Urine Neg (Negative); Sulfosalicylic Acid Urine Negative (Negative); Urine Appearance Clear (CLEAR); Urine Color Straw (Yellow); Urobilinogen Urine Norm (Negative); pH Urine 8 (5-7)
[2020-09-23 16:31] LABS: Add Urine Culture? Yes; RBC Urine 15-25 /hpf (0-2)
[2020-09-23] MEDS: sodium chloride 0.9% 1,000 ML 999 ML IV (16:40)
--- NOTE | 2020-09-23 16:50 | ECG_ITS ---
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
[2020-09-23 18:00] VITALS: BP 146/86; PULSE 75; RESP 15; O2SAT 97
[2020-09-23 18:15] LABS: Troponin 5 2HR Delta 0 ABS# (0-10)
[2020-09-23 18:38] VITALS: BP 146/86; PULSE 80; RESP 22; O2SAT 99
--- NOTE | 2020-09-24 10:36 | DCPLANNER ---
inclusion manager had message to schedule a follow up appointment for patient with heart care. inclusion manager called [facility], spoke with Pippa, gave clinic patients information. A follow up appointment was scheduled for Saturday, October 10, 2020 at 11:[address] Price. inclusion manager called phone number [phone]- was told that no one by that name lived at that number. inclusion manager called patients sister, Alejandrina, gave her the appointment information, she stated that she would tell the patient of the scheduled appointment.
--- NOTE | 2020-10-11 15:06 | DCPLANNER ---
Patient had a follow up appointment scheduled for 10.10.[address] Price at [facility] - patient did attend appointment.
== END 2020-09-23 18:38 | disposition home or self-care (01) ==
PROVIDERS: Emergency Provider Family Medicine; PCP Physician Assistant
DX: R55 Syncope and collapse (principal); R31.21 Asymptomatic microscopic hematuria; F17.210 Nicotine dependence, cigarettes, uncomplicated
CPT/HCPCS: 71045; 80053; 81001; 83880; 84484; 85025; 85378; 87086; 93005; 94640; 96360; 99284; J3535; J7030

== ENCOUNTER → 2020-11-02 10:03 | Outpatient (BNVA) | payer OTHER, SELFPAY | PROVIDERS: PCP Physician Assistant; Referring Provider Family Medicine; Visit Provider Urology | DX: R31.29 Other microscopic hematuria (principal); R30.0 Dysuria | CPT/HCPCS: 81003; 87086 ==

== ENCOUNTER 2020-11-23 07:37 | Outpatient (CLI) | payer OTHER, SELFPAY ==
[2020-11-23] MEDS: iohexol 300 mg/mL 100 mL Btl IV (08:30)
--- NOTE | 2020-11-23 09:30 | CT_ITS ---
WS: [id number] CT ABDOMEN AND PELVIS WITH AND WITHOUT CONTRAST HISTORY: MICROSCOPIC HEMATURIA TECHNIQUE: Unenhanced 5 mm axial imaging first performed through the abdomen. Post contrast imaging t hrough the abdomen and pelvis. Oral contrast has not been provided. Sagittal and coronal reformats a re submitted. All CT scans at [facility] use at least one of these dose optimization tech niques: automated exposure control; mA and/or kV adjustment per patient size (includes targeted exams where dose is matched to clinical indication); or iterative reconstruction. CONTRAST: Omnipaque 300; 95 mL IV. DLP: 1101.78 mGy.cm COMPARISON: 05/16/2019 Noncalcified new 3 mm nodule in the LEFT lower lobe, image 3 of series 3. This nodule was not present on prior CT of 03/11/2024 05/16/2019. Additional noncalcified 3 mm nodule at the RIGHT lung base, sanket ge 6 of series 3 is also new. No cardiomegaly. Very small hiatal hernia. Liver is normal size. There are a few scattered low-attenuation too small to characterize hypodensiti es. No bile duct dilatation. Gallbladder and spleen are normal. Motion artifact through the head of t he pancreas. Body and tail are negative. Pancreatic duct top normal size at 2 mm. There is a very sli ght change in density at the pancreatic head but no discrete mass. No adrenal abnormality. Mild ather osclerosis aorta with no aneurysm. Portal vein and SMV are negative. RIGHT kidney: 10.3 cm in length. No calcification, mass or obstruction. No cortical thinning. LEFT kidney: 9.6 cm in length. No calcification, obstruction or mass. No adenopathy identified. There is extensive fecal retention and constipation. There is slight increa sed amount of fluid within the small bowel with mild enhancement of the vasa recta more than typicall y seen. Prior appendectomy. Mild diffuse wall thickening of the urinary bladder. No focal nodule or mass. Bladder wall measures u p to 5.6 mm. Prostate gland enlargement encroaching into the urinary bladder. L5 anterolisthesis by [address] is [address] CT/CT abdomen pelvis wo/w [id number] IMPRESSION: 1. No renal or ureteral mass or obstruction. 2. Mild diffuse bladder wall thickening up to 5.6 mm due to outlet obstruction . Prostate gland is enlarged and heterogeneous. 3. Small hiatal hernia. 4. Bilateral 3 mm lower lobe pulmonary nodules. Recommend follow-up chest CT i n 12 months. 5. Significant motion artifact through the pancreatic head. Cannot exclude prado creatic head lesion. There is additional mild hyperemia and increase fluid in t he distal small bowel. Consider follow-up CT abdomen and pelvis with oral contr ast to better evaluate wall thickening of the small bowel and colon and for any mesenteric deposits. Follow-up CT with oral and IV contrast were also further evaluate the pancreatic head.
== END 2020-11-23 07:38 | disposition home or self-care (01) ==
LOC: RAD 07:59
PROVIDERS: PCP Physician Assistant; Visit Provider Urology
DX: R31.29 Other microscopic hematuria (principal); K44.9 Diaphragmatic hernia without obstruction or gangrene; R91.8 Other nonspecific abnormal finding of lung field
CPT/HCPCS: 74178; 81003

== ENCOUNTER 2020-12-11 11:40 | Outpatient (CLI) | payer OTHER, SELFPAY ==
--- NOTE | 2020-12-11 | CT_ITS ---
WS: [id number] CT ABDOMEN PELVIS TECHNIQUE: Contrast-enhanced CT of the abdomen and pelvis with coronal and sagittal reformatted image s. CLINICAL INFORMATION: BOWEL WALL THICKENING COMPARISON: CT November 23, 2020 DLP: 972.[address] scans at [facility] use at least one of these dose optimization techniques: automat ed exposure control; mA and/or kV adjustment per patient size (includes targeted exams where dose is matched to clinical indication); or iterative reconstruction. FINDINGS: Normal liver. A few tiny low-attenuation lesions in the liver too small characterize likely hepatic c ysts. Normal GE junction. Noncalcified nodule left lower lobe along the fissure measuring 5 mm not in cluded on the prior examination. Stable fibrosis or atelectasis right lower lobe medially. Tiny stabl e 3 mm nodule left lower lobe laterally. Adrenal glands are normal. Normal pancreatic parenchymal enhancement. Pancreatic head appears normal today. Normal caliber abdominal aorta. Aortic calcification. Urine distended bladder. Normal renal parenchymal enhancement. No hydronephrosis. No abdominal or pelvic lymphadenopathy. No i nguinal lymphadenopathy. Tiny fat-containing umbilical hernia. Mild lumbar curve convex left.Grade 1 anterolisthesis L4 on L5 measuring 3 mm. Slight retrolisthesis L3 on L4. Mild disc bulging L3-L4 L4-L 5. CT/CT abdomen pelvis w con* [id number] IMPRESSION: 1. Previously described bowel wall thickening involving the distal ileum has a more normal appearance today. 2. Colon appears decompressed and unremarkable. 3. Normal pancreatic parenchymal enhancement today. Pancreatic head appears no rmal. 4. Gallbladder is contracted. 5. Tiny esophageal hiatal hernia. 6. Urine distended bladder. 7. Grade 1 anterolisthesis L4 on L5. 8. 5 mm pulmonary nodule left lower lobe along the fissure not included on the prior examination. Previously described smaller 3 mm nodules are stable. Recom mend 6-12 month follow-up chest CT.
[2020-12-11] MEDS: iohexol 300 mg/mL 50 mL Btl PO (12:05)
== END 2020-12-11 11:41 | disposition home or self-care (01) ==
LOC: RADWPI 11:46
PROVIDERS: PCP Physician Assistant; Visit Provider Physician Assistant
DX: K63.9 Disease of intestine, unspecified (principal); R91.1 Solitary pulmonary nodule; N32.89 Other specified disorders of bladder; K44.9 Diaphragmatic hernia without obstruction or gangrene
CPT/HCPCS: 74177; Q9967

== ENCOUNTER 2021-04-24 21:20 | Emergency (ER) | payer SELFPAY ==
[2021-04-24 21:22] VITALS: BP 157/99; PULSE 81; RESP 18; TEMP 36.4; O2SAT 94; BMI 21.6
--- NOTE | 2021-04-24 21:25 | XRR_ITS ---
PROCEDURE INFORMATION: Exam: XR Chest Exam date and time: 04/24/2021 9:25 PM Age: 50 years old Clinical indication: Cough and fever and shortness of breath; Additional info: SOB TECHNIQUE: Imaging protocol: XR of the chest. Views: 1 view. COMPARISON: CR XR chest 1V portable [id number] 09/23/2020 3:10 PM FINDINGS: Lungs: Mild emphysema. Pleural spaces: Unremarkable. No pleural effusion. No pneumothorax. Heart/Mediastinum: Unremarkable. No cardiomegaly. Bones/joints: Unremarkable. XR/XR chest 1V portable [id number] IMPRESSION: 1. Mild emphysema. 2. No acute disease. Radiation Dose CTDIVOL = (mGy): DLP = (mGy-cm)
--- NOTE | 2021-04-24 21:25 | ECG_ITS ---
[facility] Test Date: 2021-04-24 Pat Name: Joe Ramirez Department: Room: Gender: Male Canteen Operator: : 1970 Requested By: Jr Martinez Order Number: [id number] Armando MD: Araceli Price M.D. Measurements Intervals [place] Rate: 80 P: 82 OR: 153 QRS: 89 QRSD: 84 T: 88 QT: 338 QTc: 392 Interpretive Statements SINUS RHYTHM POSSIBLE LEFT ATRIAL ENLARGEMENT [-0.1mV P-WAVE IN V1/V2] NONSPECIFIC ST & T-WAVE ABNORMALITY Compared to ECG 09/23/2020 17:32:15 T-wave abnormality now present Electronically Signed On 04-24-2021 23:04:18 CDT by Araceli Price M.D. [email or web address] hospitalQVPN[facility].[id number]
[2021-04-24 21:36] VITALS: BP 117/86; PULSE 105; RESP 21; O2SAT 95
[2021-04-24 21:39] LABS: Basophils # 0.1 10^3/uL (0.0-0.1); Basophils % 0.8 %; Eosinophils # 0.1 10^3/uL (0.0-0.8); Eosinophils % 1.3 %; Hematocrit 42.6 % (42.0-52.0); Hemoglobin 14.5 g/dL (11.7-16.6); Lymphocytes # 2.2 10^3/uL (0.8-4.8); Lymphocytes % 20.4 %; Mean Corpuscular Hemoglobin 33.7 pg (28.0-34.0); Mean Corpuscular Volume 99.1 fl (80-94); Mean Platelet Volume 9.8 fL (7.4-10.4); Monocytes % 9.6 %; Neutrophils # 7.23 10^3/uL (1.8-7.7); Neutrophils % 67.5 %; Nucleated Red Blood Cells % 0 %; Platelet Count 297 10^3/cmm (130-400); Red Cell Distribution Width 13.7 % (12.1-15.1); White Blood Count 10.7 10^3/uL (4.0-10.0)
--- NOTE | 2021-04-24 21:51 | W.ED.CHESTPA ---
HPI - Chest Pain General: Chief Complaint: Chest Pain Stated Complaint: CP/SOB Time Seen by Provider: 04/24/21 21:22 Source: patient and EMS Mode of arrival: EMS Limitations: no limitations History of Present Illness: HPI narrative: 50-year-old male states that over the last 10 days he been having generalized body aches low-grade fevers along with cough and weakness. He states that he just has not felt well. He has no known long history but is a longtime smoker. EMS states when they arrived he did have wheezing they gave him a breathing treatment along with dexamethasone. He is also complaining of a chest pain. Denies any pain currently. Denies any worsening improving factors. Associated symptoms: Reports dyspnea and fever(s); Deny abdominal pain, nausea or vomiting Review of Systems Const: Reports: fever(s) and chills Eyes: Denies: blurry vision or eye discomfort ENMT: Denies: throat pain or dental pain Card: Reports: chest pain Resp: Reports: dyspnea and non-productive cough GI: Denies: abdominal pain, nausea, vomiting or diarrhea : Denies: dysuria Musc: Denies: neck pain or back pain Skin/Breast: Denies: rash Neuro: Denies: headache(s) Psych: Denies: depression Santos/Lymph: Denies: easy bruising All/Imm: Denies: urticaria PFSH ED PFSH: Medical History Chronic prostatitis Encephalopathy Family history of prostate cancer in father Hx of shortness of breath Microscopic hematuria Sciatica Surgical History Hx of appendectomy Family History Mother Hypertension Diabetes Father Stroke Diabetes Cancer PROSTATE, AT AGE 75 Denies family history of CAD (coronary artery disease) Clotting disorder Dementia Chronic kidney disease (CKD) Suicide Anesthesia complication Bleeding disorder Lung disease Social History Smoking and tobacco status: current every day smoker Alcohol intake: never Marital status: / Current occupational status: employed History of recent travel: No Physical Exam Const: COMMON NORMALS: no acute distress, patient oriented x3 and healthy appearing HENMT: COMMON NORMALS: normocephalic and atraumatic HEAD & SCALP: normocephalic and atraumatic Eye: COMMON NORMALS: Equal, round and reactive pupils present and EOMs intact bilaterally PUPIL: Yes Equal, round and reactive pupils present Neck/C-Spine: COMMON NORMALS: full ROM and supple Chest: COMMONS NORMALS: normal inspection of the chest and normal palpation of entire chest wall Resp: COMMON NORMALS: normal respiratory effort, No retractions, No use of accessory muscles and clear to auscultation bilaterally AUSCULTATION: clear to auscultation bilaterally Cardio: COMMON NORMALS: regular rate, regular rhythm and No murmurs present (Cardio) RATE: regular rate RHYTHM: regular rhythm GI: COMMON NORMALS: Normal to inspection, nondistended, normoactive bowel sounds present, Soft to palpation, non-tender and no masses PALPATION: Yes Soft to palpation Extremity: COMMON NORMALS: normal to inspection and full ROM Neuro: COMMON NORMALS: patient oriented x3, moves all extremities and no focal motor deficits Psych: COMMON NORMALS: mental status grossly normal, Normal thought process present and cooperative THOUGHT PROCESS: Normal thought process present Skin: COMMON NORMALS: no rashes or lesions noted and no wounds GENERAL SKIN EXAM: no rashes or lesions noted Course Vital Signs: Vital signs: Vital Signs Temperature 97.6 F 04/24/21 21:22 Pulse Rate 82 04/24/21 23:44 Respiratory Rate 21 H 04/24/21 23:44 Blood Pressure 119/70 04/24/21 23:44 Pulse Oximetry 98 04/24/21 23:44 MDM - Chest Pain MDM Narrative: Medical decision making narrative: Patient presents here with likely bronchitis causing his pain. His initial and repeat troponins are negative along with a negative CT. Will place patient on steroids and he is stable for discharge. He is to follow-up with PCP and return if worsening. Lab Data: Labs: Lab Results 04/24/21 04/24/21 04/24/21 20:40 20:45 20:45 WBC 10.7 10^3/uL H 10 ^3/uL (4.0-10.0) RBC 4.30 10^6/uL 10^6 /uL (4.1-5.3) Hgb 14.5 g/dL g/dL (11.7-16.6) Hct 42.6 % % (42.0-52.0) MCV 99.1 fl H fl (80-94) MCH 33.7 pg pg (28.0-34.0) MCHC 34.0 g/dL g/dL (30.0-36.0) RDW 13.7 % % (12.1-15.1) Plt Count 297 10^3/cmm 10^3 /cmm (130-400) MPV 9.8 fL fL (7.4-10.4) Neut % (Auto) 67.5 % % Lymph % (Auto) 20.4 % % [place] % (Auto) 9.6 % % Eos % (Auto) 1.3 % % Baso % (Auto) 0.8 % % Neut # (Auto) 7.23 10^3/uL 10^3 /uL (1.8-7.7) Lymph # (Auto) 2.2 10^3/uL 10^3/ uL (0.8-4.8) [place] # (Auto) 1.0 10^3/uL H 10^ 3/uL (0.2-0.9) Eos # (Auto) 0.1 10^3/uL 10^3/ uL (0.0-0.8) Baso # (Auto) 0.1 10^3/uL 10^3/ uL (0.0-0.1) Nucleated RBC % (a uto) 0 % % Nucleated RBCs # 0.0 /100WBC /100W BC D-Dimer 0.73 ug/mIFEU H u g/mIFEU (0-0.59) Sodium 134 mmol/L L mmol /L (136-145) Potassium 3.9 mmol/L mmol/L (3.5-5.1) Chloride 97 mmol/L L mmol/ L (98-107) Carbon Dioxide 26 mmol/L mmol/L (22-29) Anion Gap 14.9 (5-19) BUN 14 mg/dL mg/dL (6-20) Creatinine 0.8 mg/dL mg/dL (0.7-1.2) GFR Calculation 103.2 mL/min mL/m in (90-130) Glucose 91 mg/dL mg/dL (65-115) Calculated Osmolal ity 278 mOsm/kg L mOs m/kg (285-295) Calcium 8.8 mg/dL mg/dL (8.5-10.5) Total Bilirubin 0.2 mg/dL mg/dL (0.15-1.2) AST 17 U/L U/L (0-40) ALT 16 U/L U/L (0-41) Alkaline Phosphata se 91 IU/L IU/L (40-130) Troponin T Baselin e Troponin T 120 Min [place] Delta Troponin T NT-Pro-B Natriuret Pep 57 pg/mL pg/mL (0-125) Total Protein 6.9 g/dL g/dL (6.6-8.7) Albumin 4.4 g/dL g/dL (3.5-5.2) Globulin 2.5 g/dL g/dL (1.3-4.6) SARS-CoV-2 Ag (Rap id) 04/24/21 04/24/21 04/24/21 20:45 21:35 22:47 WBC RBC Hgb Hct MCV MCH MCHC RDW Plt Count MPV Neut % (Auto) Lymph % (Auto) [place] % (Auto) Eos % (Auto) Baso % (Auto) Neut # (Auto) Lymph # (Auto) [place] # (Auto) Eos # (Auto) Baso # (Auto) Nucleated RBC % (a uto) Nucleated RBCs # D-Dimer Sodium Potassium Chloride Carbon Dioxide Anion Gap BUN Creatinine GFR Calculation Glucose Calculated Osmolal ity Calcium Total Bilirubin AST ALT Alkaline Phosphata se Troponin T Baselin e 7 ng/L ng/L (0-15) Troponin T 120 Min [place] 6.45 ng/L ng/L (0-15) Delta Troponin T -0.55 ABS# L ABS# (0-10) NT-Pro-B Natriuret Pep Total Protein Albumin Globulin SARS-CoV-2 Ag (Rap id) Negative (Negative) Imaging Data^: CT Chest: Radiologist's impression: [address] [address] [address] Scan Report Signed Patient: Joe Ramirez Unit #: [id number] : 1970 Age/Sex: 50 / M ADM Date: 04/24/21 Loc: ER Room/Bed: Attending Dr: Ordering Provider/Ordering MD: Jr Martinez MD Date of Service: 04/24/21 Procedure(s): CT angio chest PE protcl [id number] Accession Number(s): [id number] Report Number: [id number] PROCEDURE INFORMATION: Exam: CTA Chest With Contrast Exam date and time: 04/24/2021 11:28 PM Age: 50 years old Clinical indication: Shortness of breath; Chest pressure; Patient HX: Chest pain with SOB. Elevated d dimer. TECHNIQUE: Imaging protocol: Computed tomographic angiography of the chest with contrast. 3D rendering (Not supervised by radiologist): MIP and/or 3D reconstructed images were created by the technologist. Radiation optimization: All CT scans at this facility use at least one of these dose optimization techniques: automated exposure control; mA and/or kV adjustment per patient size (includes targeted exams where dose is matched to clinical indication); or iterative reconstruction. Contrast material: OMNI 350; Contrast volume: 69 ml; Contrast route: INTRAVENOUS (IV); COMPARISON: CT angio chest PE protcl [id number] 03/11/2020 7:04 PM RADIATION DOSE METRICS: Total DLP (mGy-cm): 446.37 FINDINGS: Pulmonary arteries: No pulmonary embolism. Aorta: No aortic dissection. Lungs: Unremarkable. No consolidation. No masses. Pleural spaces: Unremarkable. No pneumothorax. No pleural effusion. Heart: Unremarkable. No cardiomegaly. No pericardial effusion. Lymph nodes: Multiple nonspecific mediastinal and right hilar lymph nodes, likely reactive. Bones/joints: Unremarkable. No acute fracture. Soft tissues: Unremarkable. CT/CT angio chest PE protcl [id number] IMPRESSION: 1. No pulmonary embolism. 2. No aortic dissection. 3. Multiple nonspecific mediastinal and right hilar lymph nodes, likely reactive. Radiation Dose CTDIVOL = (mGy): DLP = 446.37 (mGy-cm) Dictated By: Wali Gordillo Signed By: Wali Gordillo Signed Date/Time: 04/24/21 2350 DD/ 2328 EKG Data^: EKG 1: Attestation: I personally reviewed and interpreted this EKG as follows: EKG interpretation date: 04/24/21 EKG interpretation time: 21:26 Interpretation: nsr hr [address] or t wave abnormalities qrs [id number] EKG 2: Attestation: I personally reviewed and interpreted this EKG as follows: EKG interpretation date: 04/24/21 EKG interpretation time: 23:59 Interpretation: nsr hr [address] or t wave abnormalities qrs 75 [id number] Discharge Plan Discharge Patient Disposition: Home Clinical Impression: Bronchitis Chest pain Qualifiers: Chest pain type: unspecified Qualified Code(s): R07.9 - Chest pain, unspecified Condition: Stable Prescriptions: New cephalexin 500 mg capsule 500 mg PO TID 7 Days Qty: 21 RF: 0 prednisone 50 mg tablet 50 mg PO DAILY Qty: 5 RF: 0 No Action sulfamethoxazole-trimethoprim 800-160 mg tablet 1 tab PO BID Qty: 60 RF: 2 metoprolol tartrate 25 mg tablet 25 mg PO BID Qty: 90 RF: 3 naproxen sodium [Aleve] 220 mg Tablet 440 mg PO PRN RF: 0 Discharge Orders: Discharge ED (Routine); Ordered 04/24/21 Ordered By: Jr Martinez Referrals: Pippa Wu PA [Primary Care Provider] - 1-3 days Discharge Diet: Advance as tolerated Discharge Activity: Resume usual activity Patient Instructions: Acute Bronchitis (ED) Coding Level of Care Code ED Math And Science Instructor for Chg Fwd Exam Comprehensive
[2021-04-24 22:03] LABS: Troponin(5th) Baseline 7 ng/L (0-15)
[2021-04-24 22:08] VITALS: BP 117/86; PULSE 91; RESP 12; O2SAT 96
[2021-04-24 22:10] LABS: Alanine Aminotransferase 16 U/L (0-41); Albumin Level 4.4 g/dL (3.5-5.2); Alkaline Phosphatase 91 IU/L (40-130); Anion Gap 14.9 (5-19); Aspartate Amino Transferase 17 U/L (0-40); Blood Urea Nitrogen 14 mg/dL (6-20); Calcium 8.8 mg/dL (8.5-10.5); Carbon Dioxide 26 mmol/L (22-29); Chloride 97 mmol/L (98-107); Globulin 2.5 g/dL (1.3-4.6); Glomerular Filtration Rate 103.2 mL/min (90-130); Glucose 91 mg/dL (65-115); NT Pro B Type Natriuretic Pept 57 pg/mL (0-125); Osmolality Calculated 278 mOsm/kg (285-295); Potassium 3.9 mmol/L (3.5-5.1); Sodium 134 mmol/L (136-145); Total Bilirubin 0.2 mg/dL (0.15-1.2); Total Protein 6.9 g/dL (6.6-8.7)
[2021-04-24 22:18] LABS: SARS Covid-2 Antigen Negative (Negative)
[2021-04-24 22:54] LABS: D Dimer 0.73 ug/mIFEU (0-0.59)
[2021-04-24 23:20] VITALS: BP 114/74; PULSE 79; RESP 24; O2SAT 95
[2021-04-24 23:22] LABS: Troponin 5 2HR 6.45 ng/L (0-15)
[2021-04-24 23:23] LABS: Troponin 5 2HR Delta -0.55 ABS# (0-10)
--- NOTE | 2021-04-24 23:25 | ECG_ITS ---
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 Measurements Intervals [place] Rate: 89 P: 81 MT: 151 QRS: 83 QRSD: 75 T: 72 QT: 385 QTc: 471 Interpretive Statements SINUS RHYTHM Compared to ECG 04/24/2021 21:26:42 T-wave abnormality no longer present Electronically Signed On 04-26-2021 19:45:57 CDT by Citlalli Emery M.D. [email or web address]
--- NOTE | 2021-04-24 23:28 | CTR_ITS ---
PROCEDURE INFORMATION: Exam: CTA Chest With Contrast Exam date and time: 04/24/2021 11:28 PM Age: 50 years old Clinical indication: Shortness of breath; Chest pressure; Patient HX: Chest pain with SOB. Elevated d dimer. TECHNIQUE: Imaging protocol: Computed tomographic angiography of the chest with contrast. 3D rendering (Not supervised by radiologist): MIP and/or 3D reconstructed images were created by the technologist. Radiation optimization: All CT scans at this facility use at least one of these dose optimization techniques: automated exposure control; mA and/or kV adjustment per patient size (includes targeted exams where dose is matched to clinical indication); or iterative reconstruction. Contrast material: OMNI 350; Contrast volume: 69 ml; Contrast route: INTRAVENOUS (IV); COMPARISON: CT angio chest PE protcl [id number] 03/11/2020 7:04 PM RADIATION DOSE METRICS: Total DLP (mGy-cm): 446.37 FINDINGS: Pulmonary arteries: No pulmonary embolism. Aorta: No aortic dissection. Lungs: Unremarkable. No consolidation. No masses. Pleural spaces: Unremarkable. No pneumothorax. No pleural effusion. Heart: Unremarkable. No cardiomegaly. No pericardial effusion. Lymph nodes: Multiple nonspecific mediastinal and right hilar lymph nodes, likely reactive. Bones/joints: Unremarkable. No acute fracture. Soft tissues: Unremarkable. CT/CT angio chest PE protcl [id number] IMPRESSION: 1. No pulmonary embolism. 2. No aortic dissection. 3. Multiple nonspecific mediastinal and right hilar lymph nodes, likely reactive. Radiation Dose CTDIVOL = (mGy): DLP = 446.37 (mGy-cm)
[2021-04-24] MEDS: iohexol 350 mg/mL 100 mL Btl IV (23:38)
[2021-04-24 23:44] VITALS: BP 119/70; PULSE 82; RESP 21; O2SAT 98
[2021-04-25 00:10] VITALS: BP 119/58; PULSE 83; RESP 18; O2SAT 97
== END 2021-04-25 00:11 | disposition home or self-care (01) ==
PROVIDERS: Emergency Provider Emergency Medicine; PCP Physician Assistant
DX: R07.9 Chest pain, unspecified (principal); J40 Bronchitis, not specified as acute or chronic; F17.210 Nicotine dependence, cigarettes, uncomplicated; Z20.822 Contact with and (suspected) exposure to COVID-19
CPT/HCPCS: 36415; 71045; 71275; 80053; 83880; 84484; 85025; 85378; 87426; 93005; 99283; Q9967

== ENCOUNTER 2021-11-14 14:57 | Emergency (ER) | payer SELFPAY ==
--- NOTE | 2021-11-14 15:06 | XR_ITS ---
WS: [id number] PORTABLE CHEST HISTORY: dyspnea/cough COMPARISON: 05/02/2021 Mild pulmonary hyperinflation. No mass or pneumonia. No pleural effusion or pneumothorax. Cardiac size: Normal. Mediastinum/Aorta: Normal mediastinum. No osseous abnormality seen. XR/XR chest 1V portable [id number] IMPRESSION: Unremarkable portable chest.
[2021-11-14 15:14] VITALS: BP 142/81; PULSE 86; RESP 14; TEMP 36.8; O2SAT 98; BMI 20.1
[2021-11-14 16:14] VITALS: BP 161/68; PULSE 92; RESP 16; TEMP 36.6; O2SAT 99
--- NOTE | 2021-11-14 16:21 | W.ED.URI ---
HPI - URI/Sore Throat General: Chief Complaint: Fever Stated Complaint: SOB Time Seen by Provider: 11/14/21 16:00 History of Present Illness: Patient is a 51-year-old male who comes to the ED with fever, chills and dry cough. Patient has a history of asthma and emphysema and is a daily tobacco smoker. Patient has inhaler at home that he uses. Symptoms started yesterday. Endorses having some shortness of breath as well. Denies any known contact with any sick people. Associated symptoms: Reports chills and fever(s); Deny abdominal pain, chest pain, diarrhea, headache(s), nasal congestion, nausea or vomiting Review of Systems Const: Reports: fever(s) and chills; Denies: fatigue Eyes: Denies: change in vision or eye discomfort ENMT: Denies: throat pain, odynophagia, nasal discharge or nasal congestion Card: Denies: chest pain, palpitations, edema, swelling of feet/ankles, dyspnea on exertion or orthopnea Resp: Reports: dyspnea and non-productive cough; Denies: productive cough GI: Denies: abdominal pain, nausea, vomiting, diarrhea, constipation or hematochezia : Denies: flank pain, difficulty urinating, dysuria or hematuria Musc: Denies: neck pain, back pain or extremity swelling Skin/Breast: Denies: rash or new lesions Neuro: Denies: headache(s), numbness in extremities or weakness in extremities PFS ED PFSH: Medical History Chronic prostatitis Encephalopathy Family history of prostate cancer in father Hx of shortness of breath Microscopic hematuria Sciatica Surgical History Hx of appendectomy Family History Mother Hypertension Diabetes Father Stroke Diabetes Cancer PROSTATE, AT AGE 75 Denies family history of CAD (coronary artery disease) Clotting disorder Dementia Chronic kidney disease (CKD) Suicide Anesthesia complication Bleeding disorder Lung disease Social History Smoking and tobacco status: current every day smoker Alcohol intake: never Marital status: / Current occupational status: employed History of recent travel: No Physical Exam Const: COMMON NORMALS: no acute distress, patient oriented x3 and alert GENERAL APPEARANCE: cooperative and comfortable HENMT: COMMON NORMALS: normocephalic HEAD & SCALP: normocephalic MOUTH: Normal oral and palatal mucosa present THROAT: posterior oropharynx normal and uvula midline Eye: COMMON NORMALS: Equal, round and reactive pupils present and conjunctivae normal CONJUNCTIVA: Yes conjunctivae normal PUPIL: Yes Equal, round and reactive pupils present Neck/C-Spine: COMMON NORMALS: supple GENERAL: Yes normal visual inspection Resp: COMMON NORMALS: normal respiratory effort, No retractions and No use of accessory muscles AUSCULTATION: wheezes expiratory wheezes and throughout Cardio: COMMON NORMALS: regular rate, regular rhythm, S1 normal heart sound present, S2 normal heart sound present, No gallops present (Cardio), No clicks present (Cardio), No murmurs present (Cardio) and Peripheral pulses 2+ throughout RATE: regular rate RHYTHM: regular rhythm HEART SOUNDS: S1 normal heart sound present and S2 normal heart sound present PERIPHERAL PULSES: Peripheral pulses 2+ throughout GI: COMMON NORMALS: Normal to inspection, nondistended, normoactive bowel sounds present, Soft to palpation, non-tender and no masses PALPATION: Yes Soft to palpation : COMMON NORMALS: Yes no CVA tenderness BLADDER/KIDNEY EXAM: Yes no CVA tenderness Back/Pelvis: COMMON NORMALS: no CVA tenderness Extremity: COMMON NORMALS: normal to inspection Neuro: COMMON NORMALS: patient oriented x3 and moves all extremities SENSORIUM/ORIENTATION: Yes alert Skin: GENERAL SKIN EXAM: dry skin Course Vital Signs: Vital signs: Vital Signs Temperature 97.8 F 11/14/21 16:14 Pulse Rate 80 11/14/21 17:21 Respiratory Rate 18 11/14/21 17:18 Blood Pressure 161/68 11/14/21 16:14 Pulse Oximetry 97 11/14/21 17:18 MDM - URI/Sore Throat Medical Decision Making Patient is a 51-year-old male who comes to the ED with upper respiratory symptoms. Patient has a history of asthma and emphysema and has an inhaler at home he uses for any shortness of breath. He is having a dry cough, fever, chills and some mild shortness of breath. Vitals are stable. Patient appears nontoxic and in no acute distress or pain. Does have some expiratory wheezing throughout lungs. Rest of exam is benign. CBC and CMP were unremarkable. Chest x-ray shows no acute findings. Influenza and COVID test negative. Patient was given a dose of azithromycin, Solu-Medrol and DuoNeb breathing treatment while here in the ED. Patient diagnosed with upper respiratory infection given his history he was sent home with a prescription for an antibiotic and steroid. He was told to follow-up with his PCP in the next 5 to 7 days for reevaluation. Return to ED precautions given. Patient understood and agreed with plan. Lab Data I reviewed the patient's lab results. : 11/14/21 16:15 11/14/21 16:15 Radiology Impressions Chest X-Ray 11/14/21 15:06 IMPRESSION: Unremarkable portable chest. Laboratory Results WBC 9.4 10^3/uL (4.0-10.0) 11/14/21 16:15 RBC 4.16 10^6/uL (4.1-5.3) 11/14/21 16:15 Hgb 13.9 g/dL (11.7-16.6) 11/14/21 16:15 Hct 41.9 % (42.0-52.0) L 11/14/21 16:15 MCV 100.7 fl (80-94) H 11/14/21 16:15 MCH 33.4 pg (28.0-34.0) 11/14/21 16:15 MCHC 33.2 g/dL (30.0-36.0) 11/14/21 16:15 RDW 13.2 % (12.1-15.1) 11/14/21 16:15 Plt Count 316 10^3/cmm (130-400) 11/14/21 16:15 MPV 9.4 fL (7.4-10.4) 11/14/21 16:15 Neut % (Auto) 48.7 % 11/14/21 16:15 Lymph % (Auto) 36.1 % 11/14/21 16:15 [place] % (Auto) 10.8 % 11/14/21 16:15 Eos % (Auto) 2.9 % 11/14/21 16:15 Baso % (Auto) 1.1 % 11/14/21 16:15 Neut # (Auto) 4.57 10^3/uL (1.8-7.7) 11/14/21 16:15 Lymph # (Auto) 3.4 10^3/uL (0.8-4.8) 11/14/21 16:15 [place] # (Auto) 1.0 10^3/uL (0.2-0.9) H 11/14/21 16:15 Eos # (Auto) 0.3 10^3/uL (0.0-0.8) 11/14/21 16:15 Baso # (Auto) 0.1 10^3/uL (0.0-0.1) 11/14/21 16:15 Nucleated RBC % (auto) 0 % 11/14/21 16:15 Nucleated RBCs # 0.0 /100WBC 11/14/21 16:15 Sodium 139 mmol/L (136-145) 11/14/21 16:15 Potassium 3.9 mmol/L (3.5-5.1) 11/14/21 16:15 Chloride 101 mmol/L (98-107) 11/14/21 16:15 Carbon Dioxide 27 mmol/L (22-29) 11/14/21 16:15 Anion Gap 14.9 (5-19) 11/14/21 16:15 BUN 19 mg/dL (6-20) 11/14/21 16:15 Creatinine 0.7 mg/dL (0.7-1.2) 11/14/21 16:15 GFR Calculation 119.9 mL/min (90-130) 11/14/21 16:15 Glucose 90 mg/dL (65-115) 11/14/21 16:15 Calculated Osmolality 290 mOsm/kg (285-295) 11/14/21 16:15 Calcium 8.4 mg/dL (8.5-10.5) L 11/14/21 16:15 Nasal Influ A H1 2009 PCR Not detected (NOT DETECT) 11/14/21 16:55 Coronavirus 229E (PCR) Not detected (NOT DETECT) 11/14/21 16:55 Influenza A (H1) PCR Not detected (NOT DETECT) 11/14/21 16:55 Influenza A (H3) PCR Not detected (NOT DETECT) 11/14/21 16:55 Influenza Type A Ag Cancelled 11/14/21 16:55 Influenza Type A (PCR) Not detected (NOT DETECT) 11/14/21 16:55 Influenza Type B Ag Cancelled 11/14/21 16:55 Influenza Type B (PCR) Not detected (NOT DETECT) 11/14/21 16:55 SARS-CoV-2 (PCR) Not detected (NOT DETECT) 11/14/21 16:55 Discharge Plan Discharge Patient Disposition: Home Clinical Impression: Upper respiratory infection, viral Condition: Stable Prescriptions: New prednisone 20 mg tablet 20 mg PO BID 5 Days Qty: 10 0RF azithromycin 250 mg tablet 250 mg PO DAILY 4 Days Qty: 4 0RF Rx Instructions: start on day 2 of therapy No Action sulfamethoxazole-trimethoprim 800-160 mg tablet 1 tab PO BID Qty: 60 2RF metoprolol tartrate 25 mg tablet 25 mg PO BID Qty: 90 3RF naproxen sodium [Aleve] 220 mg Tablet 440 mg PO PRN 0RF prednisone 50 mg tablet 50 mg PO DAILY Qty: 5 0RF Discharge Orders: Discharge ED (Routine); Ordered 11/14/21 Ordered By: Braydon Lindo Referrals: Pippa Wu PA [Primary Care Provider] - Discharge Diet: Regular Discharge Activity: Increase activity as tolerated Activity Restrictions/Additional Instructions: Follow-up with medical provider as directed in the next 5 to 7 days reevaluation. Take medications as prescribed. Return to the ER or your medical provider if condition worsens. Please read and understand discharge instructions. Thank you for choosing [facility] for your healthcare needs today. Please realize this is an emergency room and that we are providing you with a medical screening exam and this may not be complete and all inclusive of all the testing and or work up that you may need to determine your ailment or severity of your illness. It is very important that you follow up as instructed or that you return to the Emergency Department should you have concerns or if your condition changes or worsens in any way. Stand Alone Forms: Work/School Release Coding Level of Care Code ED Professional Organizer for Rosina Fwkana Exam Comprehensive
[2021-11-14 16:37] LABS: Basophils # 0.1 10^3/uL (0.0-0.1); Basophils % 1.1 %; Eosinophils # 0.3 10^3/uL (0.0-0.8); Eosinophils % 2.9 %; Hematocrit 41.9 % (42.0-52.0); Hemoglobin 13.9 g/dL (11.7-16.6); Lymphocytes # 3.4 10^3/uL (0.8-4.8); Lymphocytes % 36.1 %; Mean Corpuscular HGB Conc 33.2 g/dL (30.0-36.0); Mean Corpuscular Hemoglobin 33.4 pg (28.0-34.0); Mean Corpuscular Volume 100.7 fl (80-94); Mean Platelet Volume 9.4 fL (7.4-10.4); Monocytes % 10.8 %; Neutrophils # 4.57 10^3/uL (1.8-7.7); Neutrophils % 48.7 %; Nucleated Red Blood Cells % 0 %; Platelet Count 316 10^3/cmm (130-400); Red Blood Count 4.16 10^6/uL (4.1-5.3); Red Cell Distribution Width 13.2 % (12.1-15.1); White Blood Count 9.4 10^3/uL (4.0-10.0)
[2021-11-14] MEDS: azithromycin 250 mg Tablet 500 MG PO (16:46)
[2021-11-14 16:57] LABS: Anion Gap 14.9 (5-19); Blood Urea Nitrogen 19 mg/dL (6-20); Calcium 8.4 mg/dL (8.5-10.5); Carbon Dioxide 27 mmol/L (22-29); Chloride 101 mmol/L (98-107); Glomerular Filtration Rate 119.9 mL/min (90-130); Glucose 90 mg/dL (65-115); Osmolality Calculated 290 mOsm/kg (285-295); Potassium 3.9 mmol/L (3.5-5.1); Sodium 139 mmol/L (136-145)
[2021-11-14] MEDS: ipratropium-albuterol 3 mL Neb 6 ML INHALATION (17:16)
[2021-11-14 17:18] VITALS: PULSE 79; RESP 18; O2SAT 97
[2021-11-14 17:21] VITALS: PULSE 80
[2021-11-14 19:22] LABS: Adenovirus Not Detected (NOT DETECT); Chlamydia Pneumoniae Not Detected (NOT DETECT); Coronavirus 229E,HKU1,NL63,OC4 Not Detected (NOT DETECT); Human Metapneumovirus Not Detected (NOT DETECT); Human Rhinovirus/Enterovirus Not Detected (NOT DETECT); Influenza A Not Detected (NOT DETECT); Influenza A H1 Not Detected (NOT DETECT); Influenza A H1-2009 Not Detected (NOT DETECT); Influenza A H3 Not Detected (NOT DETECT); Influenza B Not Detected (NOT DETECT); Mycoplasma Pneumoniae Not Detected (NOT DETECT); Parainfluenza Virus Type 1 Not Detected (NOT DETECT); Parainfluenza Virus Type 2 Not Detected (NOT DETECT); Parainfluenza Virus Type 3 Not Detected (NOT DETECT); Parainfluenza Virus Type 4 Not Detected (NOT DETECT); Respiratory Syncytial Virus A Not Detected (NOT DETECT); Respiratory Syncytial Virus B Not Detected (NOT DETECT); SARS-COV-2 Not Detected (NOT DETECT)
[2021-11-14 20:05] LABS: Results from GENMARK
== END 2021-11-14 17:55 | disposition home or self-care (01) ==
PROVIDERS: Family Medicine; Emergency Provider Physician Assistant; PCP Physician Assistant
DX: J06.9 Acute upper respiratory infection, unspecified (principal); J43.9 Emphysema, unspecified; J45.909 Unspecified asthma, uncomplicated; F17.200 Nicotine dependence, unspecified, uncomplicated
CPT/HCPCS: 71045; 80048; 85025; 87631; 87635; 94640; 96372; 99283; J2930; Q0144

== ENCOUNTER 2021-11-18 14:03 | Outpatient (CLI) | payer SELFPAY ==
--- NOTE | 2021-11-18 14:10 | CT_ITS ---
WS: [id number] CT CHEST TECHNIQUE: Noncontrast CT of the chest with coronal and sagittal reformatted images. CLINICAL INFORMATION: PULMONARY NODULES COMPARISON: CT chest April 24, 2021 DLP: 559.[address] scans at [facility] use at least one of these dose optimization techniques: automated e xposure control; mA and/or kV adjustment per patient size (includes targeted exams where dose is matc hed to clinical indication); or iterative reconstruction. FINDINGS: Moderate chronic emphysematous changes. No acute pulmonary infiltrates. No focal pneumonia or pleural fluid. Normal caliber thoracic aorta. No mediastinal or hilar lymphadenopathy. No axillary lymphaden opathy. Adrenal glands are normal. Tiny RIGHT hepatic cyst. Normal GE junction. Mild thoracic curve. Mild tho racic kyphosis. Fibrosis in the lung apices. Tiny 2 mm pulmonary nodule LEFT lower lobe along the fis sure. No other suspicious pulmonary parenchymal opacities visualized today. Previously described 5 mm nodule along the fissure LEFT lower lobe is no longer seen today. CT/CT chest wo con [id number] IMPRESSION: 1. Previously described 5 mm nodule LEFT lower lobe is no longer visualized. S table Tiny 2 mm nodule LEFT lower lobe along the fissure. 2. Moderate chronic emphysematous changes. No acute pulmonary infiltrates. 3. No mediastinal or hilar lymphadenopathy. 4. No other significant findings.
== END 2021-11-18 14:04 | disposition home or self-care (01) ==
LOC: RAD 14:05
PROVIDERS: PCP Physician Assistant; Visit Provider Physician Assistant
DX: R91.1 Solitary pulmonary nodule (principal); J43.9 Emphysema, unspecified
CPT/HCPCS: 71250

== ENCOUNTER 2022-04-12 08:12 | Emergency (ER) | payer SELFPAY ==
[2022-04-12 08:15] VITALS: BP 154/95; PULSE 128; RESP 16; TEMP 36.6; O2SAT 99; BMI 18.6
--- NOTE | 2022-04-12 08:26 | ED_ITS ---
HPI - Fall General: Chief Complaint: Fall Stated Complaint: Left hand injury Time Seen by Provider: 04/12/22 08:14 Source: patient Mode of arrival: ambulatory History of Present Illness: 51-year-old male presents emergency room with complaints of left hand wrist and elbow pain after a fall last night around 1 AM. States he was getting home from a fishing trip tripped on some firewood landed on an outstretched left hand came in this morning at 8:00. He denies striking his head denies any other injuries. No previous injury to left forearm. MD complaint: fall Onset (ago): hour(s) Fall from: standing Place fall occurred: home Loss of consciousness: None Prolonged down time: no Context: tripped/slipped Location of injury - extremities: Left: elbow and forearm (Wrist and hand) Associated symptoms-after fall: Denies abdominal pain, chest pain, confusion, difficulty walking, headache(s), hematuria, lightheadedness, neck pain, numbness, short of breath, vertigo or weakness Review of Systems Const: Denies: fever(s), chills, body aches, change in appetite, fatigue or malaise Card: Denies: chest pain, palpitations, irregular heart rhythm or lightheadedness Resp: Denies: dyspnea, productive cough or non-productive cough GI: Denies: abdominal pain, nausea or vomiting : Denies: hematuria Musc: Reports: joint pain and joint swelling; Denies: neck pain or back pain Neuro: Denies: headache(s), difficulty walking, vertigo or confusion PFS ED PFSH: Medical History Chronic prostatitis Encephalopathy Family history of prostate cancer in father Hx of shortness of breath Microscopic hematuria Sciatica Surgical History Hx of appendectomy Family History Mother Hypertension Diabetes Father Stroke Diabetes Cancer PROSTATE, AT AGE 75 Denies family history of CAD (coronary artery disease) Clotting disorder Dementia Chronic kidney disease (CKD) Suicide Anesthesia complication Bleeding disorder Lung disease Social History Smoking and tobacco status: current every day smoker Alcohol intake: never Marital status: / Current occupational status: employed History of recent travel: No Physical Exam Const: COMMON NORMALS: no acute distress GENERAL APPEARANCE: cooperative and comfortable ORIENTATION/CONSCIOUSNESS: Yes awake, Yes oriented to person, Yes oriented to place and Yes oriented to time HENMT: COMMON NORMALS: normocephalic, atraumatic and hearing grossly normal bilaterally HEAD & SCALP: normocephalic and atraumatic Resp: COMMON NORMALS: normal respiratory effort, No retractions, No use of a ccessory muscles and clear to auscultation bilaterally AUSCULTATION: clear to auscultation bilaterally Cardio: COMMON NORMALS: regular rate, regular rhythm and No murmurs present (Cardio) RATE: regular rate RHYTHM: regular rhythm Extremity: OTHER: Left arm neurovascularly intact. Moderate swelling of the distal forearm wrist and metacarpal carpal joints. Patient has range of motion his fingers complains of pain to the elbow area declines to demonstrate any range of motion. Neuro: SENSORIUM/ORIENTATION: Yes oriented to person, Yes oriented to place and Yes oriented to time Skin: COMMON NORMALS: no rashes or lesions noted GENERAL SKIN EXAM: no r ashes or lesions noted Course Vital Signs: Vital signs: Vital Signs Temperature 97.8 F 04/12/22 08:15 Pulse Rate 112 H 04/12/22 08:28 Respiratory Rate 18 04/12/22 08:28 Blood Pressure 147/86 04/12/22 08:28 Pulse Oximetry 97 04/12/22 08:28 Oxygen Delivery Me thod 04/12/22 08:28 MDM - Fall Medical Decision Making MedicaidMinimally displaced distal radius fracture does extend intra-articular. Patient placed in a splint ice elevate NSAIDs as needed we will have case management make arrangements for follow-up with orthopedics. Medical Records I reviewed the patient's medical records. Discharge Plan Discharge Patient Disposition: Home Clinical Impression: Distal radius fracture, left Qualifiers: Encounter type: initial encounter Fracture type: closed Fracture morphology: other intra-articular Qualified Code(s): S52.572A - Other intraarticular fracture of lower end of left radius, initial encounter for closed fracture Condition: Stable Prescriptions: New hydrocodone-acetaminophen 5-325 mg tablet 1 tab PO Q6H PRN (Reason: pain) Qty: 10 0RF No Action sulfamethoxazole-trimethoprim 800-160 mg tablet 1 tab PO BID Qty: 60 2RF metoprolol tartrate 25 mg tablet 25 mg PO BID Qty: 90 3RF naproxen sodium [Aleve] 220 mg Tablet 440 mg PO PRN prednisone 50 mg tablet 50 mg PO DAILY Qty: 5 0RF Discharge Orders: Discharge ED (Routine); Ordered 04/12/22 Ordered By: Alexi Byers Referrals: Pippa Wu PA [Primary Care Provider] - Discharge Diet: Usual diet Discharge Activity: Limit activity as instructed Patient Instructions: Opioid Safety, Pain Management Activity Restrictions/Additional Instructions: Maintain splint in place until you see orthopedist. numerical analysis group manager will make arrangements for orthopedic follow-up. Elevate and ice as needed for comfort. Coding Level of Care Code ED Motorcycle Mechanic for Rosina Fwkana Exam Detailed
--- NOTE | 2022-04-12 08:26 | XRR_ITS ---
PROCEDURE INFORMATION: Exam: XR Left Wrist Exam date and time: 04/12/2022 8:35 AM Age: 51 years old Clinical indication: Injury or trauma; Fall; Blunt trauma (contusions or hematomas); Wrist; Left TECHNIQUE: Imaging protocol: Radiologic exam of the Left wrist. Views: 3 or more views. Frontal Oblique Lateral COMPARISON: No relevant prior studies available. FINDINGS: Bones/joints: Comminuted intra-articular left distal radial metaphyseal fracture is seen with fracture line extension into the radiocarpal and distal radioulnar joints. There is no displacement seen. There is no associated ulnar styloid process fracture. There is normal alignment of the carpal bones. The radiocarpal joint is unremarkable. The distal radial ulnar joint is unremarkable. Soft tissues: There is moderate wrist region soft tissue swelling. There are no radio-opaque foreign bodies. Notes: Followup radiographs may be obtained for complete assessment. XR/XR wrist LT min 3V* [id number] IMPRESSION: Comminuted, nondisplaced intra-articular left distal radial metaphyseal fracture.
--- NOTE | 2022-04-12 08:26 | XRR_ITS ---
PROCEDURE INFORMATION: Exam: XR Left Hand Exam date and time: 04/12/2022 8:35 AM Age: 51 years old Clinical indication: Injury or trauma; Fall; Blunt trauma (contusions or hematomas); Hand; Left TECHNIQUE: Imaging protocol: Radiologic exam of the Left hand. Views: 3 or more views. Frontal Oblique Lateral COMPARISON: No relevant prior studies available. FINDINGS: Bones/joints: There is flexion of the digits on the hand, which limits assessment. Oblique left 5th/little finger distal phalanx tuft region fracture is seen with 2.5 mm distraction/distal displacement of the fracture fragment. There are no other fractures seen. The joint spaces appear unremarkable. There appears to be a comminuted nondisplaced distal radius fracture. Recommend correlation with wrist radiographs. Soft tissues: There is mild distal 5th/little finger region soft tissue swelling. There are no radiopaque foreign bodies. Notes: Followup radiographs may be obtained for complete assessment. XR/XR hand LT min 3V* [id number] IMPRESSION: 1. Oblique left 5th/little finger distal phalanx tuft region displaced fracture, as noted above. 2. There appears to be a comminuted nondisplaced distal radius fracture. Recommend correlation with wrist radiographs.
[2022-04-12 08:28] VITALS: BP 147/86; PULSE 112; RESP 18; O2SAT 97
--- NOTE | 2022-04-12 08:29 | XRR_ITS ---
PROCEDURE INFORMATION: Exam: XR Left Elbow Exam date and time: 04/12/2022 8:35 AM Age: 51 years old Clinical indication: Injury or trauma; Fall; Blunt trauma (contusions or hematomas); Elbow; Left TECHNIQUE: Imaging protocol: Radiologic exam of the Left elbow. Views: 3 or more views. AP Oblique Lateral COMPARISON: No relevant prior studies available. FINDINGS: Bones/joints: There are no fractures or dislocations. The joint spaces are normal. There is no joint effusion. Soft tissues: There is no soft tissue swelling. 2 x 2 mm radiopaque density is seen in the lateral soft tissues of the proximal forearm. Notes: If there is further clinical concern, recommend followup radiographs, bone scan or MRI for further assessment. XR/XR elbow LT min 3V* [id number] IMPRESSION: 1. No fractures or dislocation of the left elbow. 2. 2 x 2 mm radiopaque density in the lateral soft tissues of the proximal forearm.
[2022-04-12 09:17] VITALS: BP 153/79; PULSE 101; RESP 18; O2SAT 98
--- NOTE | 2022-04-14 09:12 | DCPLANNER ---
Addendum entered by Rhonda Aguilar 04/15/22 14:22: regional commercial sales manager received the following message from the ortho clinic regarding follow up appointment: attempted to call patient to get an appointment set-up but i was unable to reach him and i was unable to leave him a voicemail. regional commercial sales manager called phone number [phone] - this number no longer in service regional commercial sales manager called phone number [phone]- no one by the patients name is at that residence. regional commercial sales manager called phone number [phone] -no answer (patients sister) Original Note: regional commercial sales manager had message to schedule a follow up appointment for patient with ortho. regional commercial sales manager sent patients information to the front office staff at ortho. Patients information will be printed and reviewed. Clinic will call patient with appointment information.
== END 2022-04-12 09:23 | disposition home or self-care (01) ==
PROVIDERS: Emergency Provider Family Medicine; PCP Physician Assistant
DX: S52.572A Other intraarticular fracture of lower end of left radius, initial encounter for closed fracture (principal); S62.637A Displaced fracture of distal phalanx of left little finger, initial encounter for closed fracture; F17.200 Nicotine dependence, unspecified, uncomplicated; W01.0XXA Fall on same level from slipping, tripping and stumbling without subsequent striking against object, initial encounter
CPT/HCPCS: 29125; 73080; 73110; 73130; 99283

== ENCOUNTER → 2022-04-22 09:03 | Outpatient (BNVA) | payer SELFPAY | PROVIDERS: PCP Physician Assistant; Visit Provider Student in an Organized Health Care Education/Training Program | DX: W18.09XA Striking against other object with subsequent fall, initial encounter (principal); S52.502A Unspecified fracture of the lower end of left radius, initial encounter for closed fracture | CPT/HCPCS: 73110 ==

== ENCOUNTER 2022-04-22 14:18 | Outpatient (CLI) | payer SELFPAY | END 2022-04-22 14:19 | disposition home or self-care (01) | LOC: SPT 14:19 | PROVIDERS: PCP Physician Assistant; Visit Provider Student in an Organized Health Care Education/Training Program | DX: Z46.89 Encounter for fitting and adjustment of other specified devices (principal); S52.592D Other fractures of lower end of left radius, subsequent encounter for closed fracture with routine healing; X58.XXXD Exposure to other specified factors, subsequent encounter | CPT/HCPCS: 97760; L3982 ==

== ENCOUNTER → 2022-05-08 11:12 | Outpatient (BNVA) | payer SELFPAY | PROVIDERS: PCP Physician Assistant; Visit Provider Student in an Organized Health Care Education/Training Program | DX: X58.XXXA Exposure to other specified factors, initial encounter (principal); S52.502A Unspecified fracture of the lower end of left radius, initial encounter for closed fracture | CPT/HCPCS: 73110 ==

== ENCOUNTER 2022-05-09 11:12 | Day surgery (SDC) | payer SELFPAY ==
[2022-05-09] VITALS (12 sets, daily range): BP systolic 121–151; BP diastolic 67–101; PULSE 69–93; RESP 16–20; TEMP 36.7–36.9; O2SAT 96–100; BMI 21.4
--- NOTE | 2022-05-09 | SCC_ITS ---
Procedure done: Open reduction internal fixation left distal radius fracture 3 part intra- articular 65 seconds of fluoroscopic guidance, for a cumulative dose of 1.3 mGy, was provided to Dr. Lindo by the radiology department. C-arm images of the LEFT forearm were saved for the patient's permanent record. [facility]AMPUSBernice
--- NOTE | 2022-05-09 | XR_ITS ---
WS: [id number] Exam: XR forearm LT 2V [id number] Date/Time of Exam: 05/09/2022 12:00 AM Reason For Exam: orif left forearm Comparison 05/08/2022. There is volar plate and screw fixation involving an impacted fracture of the distal radial metaphysi s. Alignment is in anatomic position for healing. XR/XR forearm LT 2V [id number] IMPRESSION: 1. Internal fixation involving a fracture of the distal radius in excellent pos ition for healing.
[2022-05-09] MEDS: sodium chloride 0.9% 1,000 ML 30 ML IV (12:00)
[2022-05-09] MEDS: acetaminophen 1,000 MG/100 ML PIGGYBACK 400 MG IV (12:30)
--- NOTE | 2022-05-09 12:31 | P.ANESASSM_ITS ---
Pre-Anesthetic Assessment Height/Weight: Height 1.63 m Weight 56.699 kg Temp Pulse Resp BP Pulse Ox O2 Del Method 98.5 F 91 16 151/101 99 05/09/22 11:54 05/09/22 11:54 05/09/22 11:54 05/09/22 11:54 05/09/22 11:54 05/09/22 11:59 Preop Diagnosis: Left distal radius fracture, intra-articular displaced Operation Date: 05/09/22 13:15 Proposed Procedures p LEFT DISTAL RADIUS OPEN REDUCTION INTERNAL FIXATION 53783,S52.502A(Left) - Toby Lindo DO Familial anesthetic complications: none Was Beta Oleg taken within 24 hours: Yes Was Clonidine taken within 24 hours: N/A Last intake: Intake Last Liquid Date 05/08/22 Last Liquid Time 21:00 Last Solid Date 05/08/22 Last Solid Time 21:00 Social Tobacco and No alcohol Exam alert, oriented x 3 and regular rate & rhythm Airway Submandibular: within normal limits Cervical ROM: within normal limits Mallampati: Class II Dentition: false Pulmonary Chronic Obstructive Pulmonary Disease CV/HEM Arrythmia, Hypertension and Murmur Neuropsych Syncope Anesthetic Plan ASA status: 3 Anesthesia: General Medications/Allergies Home Medications Medication Instructions Recorded Confirmed Last Taken Type metoprolol tartrate 25 mg tablet 25 mg PO BID #90 tabs 12/03/20 05/09/22 05/08/22 20:00 Rx FAST FORM #1 ea 04/22/22 05/08/22 Unknown Rx Allergies Allergy/AdvReac Type Severity Reaction Status Date / Time diphenhydramine Allergy ADR-Drowsy Verified 05/09/22 11:35 [From Benadryl] [facility] Anesthesia Medical History (Updated 04/26/22 @ 21:37 by Toby Lindo DO) Chronic prostatitis Encephalopathy Family history of prostate cancer in father Fracture of left distal radius Hx of shortness of breath Microscopic hematuria Sciatica Surgical History Hx of appendectomy Family History Mother Hypertension Diabetes Father Stroke Diabetes Cancer PROSTATE, AT AGE 75 Denies family history of CAD (coronary artery disease) Clotting disorder Dementia Chronic kidney disease (CKD) Suicide Anesthesia complication Bleeding disorder Lung disease Social History Smoking and tobacco status: current every day smoker Alcohol intake: never Marital status: / Current occupational status: employed History of recent travel: No Data Anesthesia Cardiac Studies: Cardiac Event Monitor 09/27/20
[2022-05-09] MEDS: ketorolac 30 mg/mL INJ IVP (12:45)
--- NOTE | 2022-05-09 14:27 | W.PM.OPSUD ---
Surgery/Procedure H&P Update DATE OF PROCEDURE: May 09, 2022 DATE H&P PERFORMED: 05/08/22 CHANGES TO PREVIOUS DOCUMENTATION: None PREOP DIAGNOSIS: Left distal radius fracture, intra-articular displaced PRIMARY INDICATION FOR PROCEDURE: Left displaced intra-articular distal radius fracture, failed conservative treatment PLANNED PROCEDURE: Operation Date: 05/09/22 13:15 Proposed Procedures p LEFT DISTAL RADIUS OPEN REDUCTION INTERNAL FIXATION 53208,S52.502A(Left) - Toby Lindo DO
--- NOTE | 2022-05-09 14:32 | SUR.PREOP ---
14:22 left brachial nerve block performed by Saúl. B/P and pulse ox monitored throughout. patient tolerated procedure well.
--- NOTE | 2022-05-09 14:35 | ANES.PROC ---
Anesthesia Procedures Procedure/Date: 05/09/22 Nerve Block ^: Nerve Block 1: Main Anesthesia: general anesthesia Time Out Performed: Yes Consent: requested by attending/covering physician, from patient, risks and benefits reviewed and patient agrees to proceed Nerve block location: interscalene (left (and left intercostal brachial)) Anesthesia monitors applied: pulse oximetry, EKG, BP cuff and oxygen Nerve block position: semi sitting Anesthetic Used: ropivicaine 0.5% Amount of anesthesia used (mL): 30 Ultrasound used to: recognize landmarks Nerve Stimulator Used?: No Interscalene/Femoral BLK: 2 stimuplex 22 g needle used for position and inplane approach Injection: neg aspiration of heme Patient Tolerated Procedure: well Complications: none
[2022-05-09] MEDS: ceFAZolin 2,000 MG in sodium chloride 0.9% (plus) 50 ML 100 MG IV (14:46)
--- NOTE | 2022-05-09 16:39 | P.OP_ITS ---
Brief Operative Note Date of procedure: 05/09/22 Pre-op diagnosis: Intra-articular displaced left distal radius fracture Post-op diagnosis: same Procedure Done: Open reduction internal fixation left distal radius fracture intra-articular 3 fracture fragments Surgeon: Toby Lindo Estimated blood loss (mL): 25 Complications: None Post-op Plan: Patient recovering well in PACU. Pain controlled. Patient splint on in place clean dry and intact. Sling in place. Patient received regional anesthesia. Fingertips warm well perfused. Will be received appropriate discharge instructions as well as pain medication. Patient to be nonweightbearing to the left upper extremity. Patient will follow-up with me in office in 2 weeks. Condition: stable Disposition: same day Coding Level of Care Code Acute Plastic And Reconstructive Surgeon for Rosina Valencia
--- NOTE | 2022-05-09 16:49 | ANE.PACU2 ---
Inpatient post-anesthesia follow up: Airway intact: Yes Vital signs: Temperature 98.5 F Pulse Rate 77 Respiratory Rate 16 Blood Pressure 131/81 Pulse Oximetry 96 Oxygen Delivery Me thod Room Air Oxygen Flow Rate 6 Fraction of Inspir ed Oxygen Hydration adequate: Yes Nausea and vomiting: No Pain level: 1 Mental status: Baseline
--- NOTE | 2022-05-09 16:53 | PM.PACU ---
PACU note Narrative: Patient recovering well in PACU. Patient received regional anesthesia. Patient splint on in place clean dry and intact. Fingertips are warm well-perfused brisk capillary refill less than 2 seconds. Patient resting comfortably and pain controlled. Exam: somnolent, arousable (See narrative report for detailed examination) Disposition: discharged
--- NOTE | 2022-05-09 16:53 | PM.OP ---
Operative Report Date of procedure: May 09, 2022 Pre-op diagnosis: Preop Diagnosis Left distal radius fracture, intra-articular displaced Post-op diagnosis: Three-part intra-articular left distal radius fracture Procedure done: Open reduction internal fixation left distal radius fracture 3 part intra-articular Interpretation fluoroscopic mini C arm imaging Implants: Arthrex 3-hole standard volar distal radius plate 14 mm screws x2 16mm screw 18 mm screw x2 20 mm screw x2 Surgeon: Toby Lindo DO Estimated blood loss: 25 cc 57 minutes IV fluids: See anesthesia record Complications: None Findings: See operative report narrative Condition: stable Disposition: same day Brief History: Joe is a pleasant 51-year-old male who sustained a left distal radius fracture. Fracture was minimally displaced and intra-articular. Patient was initially seen in my office and given the minimally displacement we talked about treatment options and agreed to proceed with conservative nonoperative treatment. Did express to him the importance of nonweightbearing and close follow-up. Unfortunately due to issues with obtaining a ride to get to his follow-up appointment he did miss his follow-up appointment and was not seen for 2 weeks. Once he was able to finally have a ride for his follow-up appointment earlier this week it was evident that patient fracture had subsided now had significant dorsal angulation and comminution as well as significant displacement of the volar ulnar corner fracture fragment. At this point time I recommended surgical intervention given his younger age as well as his now clinical deformity and interval displacement. We talked about his treatment options through shared decision making he agrees to proceed with surgical intervention for ORIF left distal radius. He understands the risk benefits complication alternatives of treatment options and agrees to proceed with surgery. All questions answered. Consent was obtained in office. Procedure: Patient seen evaluated in preoperative holding area. Consent reviewed with patient. Correct extremity marked. Seen evaluated by anesthesia team. Patient underwent regional anesthesia. Patient taken back to the OR and transported the OR table all bony prominences were well-padded patient was appropriately secured to the bed. Left upper extremity was then placed into the armboard. Nonsterile tourniquet applied to the left upper extremity. Patient underwent anesthesia per the anesthesia department. Patient's left upper extremity was then prepped and draped in standard orthopedic fashion. Final timeout performed. Patient received appropriate preoperative antibiotics. Esmarch tourniquet was used exsanguinate left upper extremity and tourniquet inflated to 250 mmHg. Standard volar FCR extended incision distally was then performed due to the significant distal fracture fragment and volar ulnar corner piece with its displacement. Sharp scalpel through skin subcutaneous tissue released FCR out of its fascial sheath proximally and distally mobilizes ulnarly released the floor of the FCR sheath mobilized FPL direct visualization of pronator quadratus. This point time pronator quadratus was released in standard fashion. Dissection was carried distal enough to appropriate plate placement as well as visualization. There was some noticeable callus formation noted over the volar aspect of the wrist. We had utilized rongeur to remove this to have better cortical read I then introduced a [place] and blunt elevator into the fracture site to help free up the dorsal callus to allow for appropriate episcopalian of volar tilt. This point time the brachial radialis was identified to being problematic for my reduction as result performed standard brachial radialis release with care not to injure the neurovascular structures of the first dorsal compartment. Next I mobilized the fracture. It was evident this was a 3 part intra-articular distal radius fracture. Once fracture was mobile I then assessed this utilizing mini fluoroscopic C arm. At this point time I could only get patient's volar tilt to roughly 2 5 to 10 degrees of dorsal residual angulation my plan was to utilize the kickstand locking guide my proximal hole utilizing my Arthrex plate to restore final aspect of volar tilt. I then manually performed a reduction and then placed my plate in appropriate position distally utilize K wires distally and proximally and utilized mini C arm to confirm appropriate plate placement once I satisfied with my plate placement distally I then utilized a peek drill guide to then drill and place a fully threaded cortical screw to compress the plate to bone. Once this was done and satisfied with my placement I then sequentially drilled measured and placed locking screws in my distal row. My cortical screw was then swapped out for a shorter locking screw and my radial styloid screw was then drilled measured and then placed appropriately this had excellent fixation remove my distal K wires. Next I then removed my kickstand screw performed by manipulation and brought the plate to bone drilled my proximal oblong cortical screw had excellent fixation and brought the plate to bone had excellent episcopalian of my volar angulation as well as episcopalian of radial height and inclination. Once satisfied with plate placement I then subsequently drilled and placed 2 locking screws to complete my proximal fixation. Mini C arm was then brought in for final imaging of AP oblique lateral as well as inclination view and showed no screws were intra-articular they were not too long dorsally and were all appropriate length had excellent fixation and episcopalian of volar tilt radial height and inclination. Wound was then thoroughly irrigated. Tourniquet was then deflated. Hemostasis was maintained with pressure and electrocautery. I then subsequently closed the incision with Vicryl suture 3-0 and horizontal mattress nylon suture running fashion closing the skin. Xeroform 4 x 4's ABD Curlex soft roll and a volar splint applied. Patient was then awakened from anesthesia and taken to PACU in stable condition. Disposition: Patient recovering well in PACU. Pain controlled. Block still in effect. Will receive appropriate discharge instructions as well as pain medication postoperatively. Understand they have any questions may contact the office. We will follow-up with me in office in 2 weeks. Keep splint on in place clean dry and intact. Nonweightbearing left upper extremity.
[2022-05-09] MEDS: HYDROcodone-acetaminophen 5-325 mg Tablet 1 TAB PO (17:45)
== END 2022-05-09 17:50 | disposition home or self-care (01) ==
PROVIDERS: PCP Physician Assistant; Visit Provider Student in an Organized Health Care Education/Training Program
PROC: (CPT 25609; principal; 2022-05-09 13:15)
DX: S52.572A Other intraarticular fracture of lower end of left radius, initial encounter for closed fracture (principal); X58.XXXA Exposure to other specified factors, initial encounter; J44.9 Chronic obstructive pulmonary disease, unspecified; I10 Essential (primary) hypertension; F17.210 Nicotine dependence, cigarettes, uncomplicated
CPT/HCPCS: 25609; 73090; 76000; C1713 ×2; J1100; J1885; J2405; J2704; J2795; J3010; J7030

== ENCOUNTER → 2022-05-23 08:28 | Outpatient (BNVA) | payer SELFPAY | PROVIDERS: PCP Physician Assistant; Visit Provider Student in an Organized Health Care Education/Training Program | DX: S52.502A Unspecified fracture of the lower end of left radius, initial encounter for closed fracture (principal); W19.XXXA Unspecified fall, initial encounter | CPT/HCPCS: 73110 ==

== ENCOUNTER → 2022-06-17 08:56 | Outpatient (BNVA) | payer SELFPAY | PROVIDERS: PCP Physician Assistant; Visit Provider Student in an Organized Health Care Education/Training Program | DX: S52.502D Unspecified fracture of the lower end of left radius, subsequent encounter for closed fracture with routine healing (principal); X58.XXXD Exposure to other specified factors, subsequent encounter | CPT/HCPCS: 73110 ==

== ENCOUNTER 2022-06-17 14:35 | Outpatient (CLI) | payer SELFPAY | END 2022-06-17 14:36 | disposition home or self-care (01) | LOC: SPT 14:36 | PROVIDERS: PCP Physician Assistant; Visit Provider Student in an Organized Health Care Education/Training Program | DX: Z46.89 Encounter for fitting and adjustment of other specified devices (principal); S52.592D Other fractures of lower end of left radius, subsequent encounter for closed fracture with routine healing; X58.XXXD Exposure to other specified factors, subsequent encounter | CPT/HCPCS: 97760; L3982 ==

== ENCOUNTER → 2022-07-15 10:19 | Outpatient (BNVA) | payer SELFPAY | PROVIDERS: PCP Physician Assistant; Visit Provider Student in an Organized Health Care Education/Training Program | DX: S52.502A Unspecified fracture of the lower end of left radius, initial encounter for closed fracture (principal); X58.XXXA Exposure to other specified factors, initial encounter | CPT/HCPCS: 73110 ==

== ENCOUNTER 2022-07-15 11:15 | Outpatient (CLI) | payer SELFPAY | END 2022-07-15 11:16 | disposition home or self-care (01) | LOC: SPT 11:15 | PROVIDERS: PCP Physician Assistant; Visit Provider Student in an Organized Health Care Education/Training Program | DX: Z46.89 Encounter for fitting and adjustment of other specified devices (principal); S52.592D Other fractures of lower end of left radius, subsequent encounter for closed fracture with routine healing; X58.XXXD Exposure to other specified factors, subsequent encounter | CPT/HCPCS: L3908 ==

== ENCOUNTER → 2022-08-28 10:21 | Outpatient (BNVA) | payer SELFPAY | PROVIDERS: PCP Physician Assistant; Visit Provider Nurse Practitioner Family | DX: S52.502A Unspecified fracture of the lower end of left radius, initial encounter for closed fracture (principal); X58.XXXA Exposure to other specified factors, initial encounter | CPT/HCPCS: 73110 ==

== ENCOUNTER → 2022-11-20 09:55 | Outpatient (BNVA) | payer SELFPAY | PROVIDERS: PCP Physician Assistant; Visit Provider Nurse Practitioner Family | DX: S52.502D Unspecified fracture of the lower end of left radius, subsequent encounter for closed fracture with routine healing (principal); X58.XXXD Exposure to other specified factors, subsequent encounter | CPT/HCPCS: 73110 ==

== ENCOUNTER → 2023-04-28 08:44 | Outpatient (BNVA) | payer SELFPAY | PROVIDERS: PCP Physician Assistant; Visit Provider Physician Assistant | DX: S52.502D Unspecified fracture of the lower end of left radius, subsequent encounter for closed fracture with routine healing (principal); X58.XXXD Exposure to other specified factors, subsequent encounter | CPT/HCPCS: 73110 ==

== ENCOUNTER 2023-07-31 15:03 | Emergency (ER) | payer OTHER, SELFPAY ==
[2023-07-31 15:07] VITALS: BP 132/82; PULSE 117; RESP 18; TEMP 38.1; O2SAT 99
--- NOTE | 2023-07-31 15:16 | XR_ITS ---
WS: [id number] CHEST 2 VIEWS HISTORY: cough/congestion COMPARISON: 11/14/2021 Lungs: Clear with no abnormality. No pleural effusion or pneumothorax. Cardiac size: Normal. Mediastinum/Aorta: Normal mediastinum. Bones: Normal. IMPRESSION: Normal chest.
--- NOTE | 2023-07-31 15:18 | ED_ITS ---
HPI - Fever 2 General: Chief Complaint: Fever Stated Complaint: fever Time Seen by Provider: 07/31/23 15:09 History of Present Illness: 53-year-old male presents emerged part w ith complaints of a subjective fever intermittently over the previous 2 days. He states he also has had increased fatigue and malaise as well as generalized bodyaches. He states he is also had a nonproductive cough for the previous 2 days. He states he does have a history of intermittent tachycardia and takes metoprolol for it. He does endorse recent sick contacts with similar illnesses. He states he feels like he has no energy over the previous 2 days. He denies chest pain at present. He does state that his cough seems to be more in the afternoon/evening and he has noticed that he does have some rib pain because he is coughing so much. He states his rib pain is a aching type pain that occurs while he is coughing and after coughing. He denies chest pain at present. He states he does feel nauseated at present. Associated symptoms: Reports nausea; Deny abdominal pain or vomiting Review of Systems 2 General: Reports: 10 or more systems reviewed and unremarkable except in HPI and below Resp: Reports: non-productive cough GI: Reports: nausea; Denies: abdominal pain or vomiting PFSH ED 2 PFSH: Medical History Chronic prostatitis Encephalopathy Family history of prostate cancer in father Fracture of left distal radius Hx of shortness of breath Microscopic hematuria Sciatica Surgical History Hx of appendectomy Family History Mother Hypertension Diabetes Father Stroke Diabetes Cancer PROSTATE, AT AGE 75 Denies family history of CAD (coronary artery disease) Clotting disorder Dementia Chronic kidney disease (CKD) Suicide Anesthesia complication Bleeding disorder Lung disease Social History Smoking and tobacco/nicotine status: current every day tobacco/nicotine user Alcohol intake: never Substance/Drug Use: current Marital status: / Current occupational status: employed Physical Exam 2 Narrative: EXAM NARRATIVE: Constitutional: the patient appears well nourished and of normal development. Vital signs as documented. No acute distress at present. Alert and oriented-to person, place, time and situation. Head, eyes, ears, nose, mouth, throat: Normocephalic, atraumatic. Pupils-equal, round, reactive to light. No scleral icterus. Normal-appearing external ears. Normal appearing nasal turbinates, no drainage. No obvious oral lesions, posterior oropharynx without erythema or exudates. Neck: Supple, trachea is midline, no lymphadenopathy, no jugular venous distension, thyromegaly, or carotid bruits. Carotid upstrokes are brisk bilaterally. Lungs: clear to auscultation to all lung dwyer. Symmetrical rise and fall of chest, no obvious signs of increased work of breathing at present. Cardiac: Regular rate and rhythm, positive S1, S2. No murmurs, rubs or gallops that I can appreciate Abdomen: Soft, non-tender to palpation, normal active bowel sounds to all quadrants. No palpable masses, no organomegaly and abdominal bruits. Extremities: 2+ pulses in the upper extremities that are equal bilaterally, 2+ pulses in the lower extremities that are equal bilaterally. Non-edematous. Moves all extremities well, sensation to all extremities are noted. Skin: Warm, dry, intact. Course 2 Vital Signs: Vital signs: Vital Signs Temperature 100.5 F H 07/31/23 15:07 Pulse Rate 121 H 07/31/23 17:41 Respiratory Rate 18 07/31/23 15:07 Blood Pressure 124/71 07/31/23 17:41 Pulse Oximetry 97 07/31/23 17:41 Oxygen Delivery Me thod Room Air 07/31/23 16:30 MDM - Fever Medical Decision Making 53-year-old male presents with complaints of fever and a cough I suspect most likely this is a viral illness. He states he does smoke cigarettes daily and I have educated the patient regarding the risk and possible complications of continued tobacco product use and encouraged him to discontinue using tobacco products. I advised the patient I will obtain a CBC and CMP as well as a EKG and chest x-ray and COVID swabs as well as influenza swabs. I reviewed the patient's previous medical records and will reevaluate once the lab and radiographic results are returned. Differential diagnosis includes viral illness, pneumonia, bacterial infection. Medical Records I reviewed the patient's medical records. Lab Data I reviewed the patient's lab results. 07/31/23 13:52 07/31/23 13:52 Laboratory Results WBC 8.67 10^3/uL (3.29-11.43) 07/31/23 13:52 RBC 4.43 10^6/uL (3.85-5.65) 07/31/23 13:52 Hgb 14.40 g/dL (11.27-16.99) 07/31/23 13:52 Hct 43.7 % (37-53) 07/31/23 13:52 MCV 98.6 fl (82-101) 07/31/23 13:52 MCH 32.5 pg (27-33) 07/31/23 13:52 MCHC 33.0 g/dL (30-55) 07/31/23 13:52 RDW 12.9 % (12.1-15.1) 07/31/23 13:52 Plt Count 195 10^3/cmm (157-399) 07/31/23 13:52 MPV 10.0 fL (7.4-10.4) 07/31/23 13:52 Neut % (Auto) 69.9 % 07/31/23 13:52 Lymph % (Auto) 21.6 % 07/31/23 13:52 [place] % (Auto) 7.2 % 07/31/23 13:52 Eos % (Auto) 0.5 % 07/31/23 13:52 Baso % (Auto) 0.6 % 07/31/23 13:52 Neut # (Auto) 6.07 10^3/uL (1.8-7.7) 07/31/23 13:52 Lymph # (Auto) 1.9 10^3/uL (0.8-4.8) 07/31/23 13:52 [place] # (Auto) 0.6 10^3/uL (0.2-0.9) 07/31/23 13:52 Eos # (Auto) 0.0 10^3/uL (0.0-0.8) 07/31/23 13:52 Baso # (Auto) 0.1 10^3/uL (0.0-0.1) 07/31/23 13:52 Nucleated RBC % (auto) 0 % 07/31/23 13:52 Nucleated RBCs # 0.0 /100WBC 07/31/23 13:52 Sodium 131 mmol/L (136-145) L 07/31/23 13:52 Potassium 4.2 mmol/L (3.5-5.1) 07/31/23 13:52 Chloride 96 mmol/L (98-107) L 07/31/23 13:52 Carbon Dioxide 25 mmol/L (22-29) 07/31/23 13:52 Anion Gap 14.2 (5-19) 07/31/23 13:52 BUN 11 mg/dL (6-20) 07/31/23 13:52 Creatinine 0.9 mg/dL (0.7-1.2) 07/31/23 13:52 GFR Calculation 89.0 mL/min (90-130) L 07/31/23 13:52 Glucose 150 mg/dL (65-115) H 07/31/23 13:52 Calculated Osmolality 274 mOsm/kg (285-295) L 07/31/23 13:52 Calcium 8.9 mg/dL (8.5-10.5) 07/31/23 13:52 Total Bilirubin 0.2 mg/dL (0.15-1.2) 07/31/23 13:52 AST 16 U/L (0-40) 07/31/23 13:52 ALT 10 U/L (0-41) 07/31/23 13:52 Alkaline Phosphatase 95 U/L (40-130) 07/31/23 13:52 Total Protein 6.7 g/dL (6.6-8.7) 07/31/23 13:52 Albumin 3.8 g/dL (3.5-5.2) 07/31/23 13:52 Globulin 2.9 g/dL (1.3-4.6) 07/31/23 13:52 Influenza Type A Ag positive (Negative) H 07/31/23 15:35 Influenza Type B Ag negative (Negative) 07/31/23 15:35 SARS-CoV-2 Ag (Rapid) negative (Negative) 07/31/23 15:35 All radiology interpretation(s) finalized by discharge EKG Data EKG 1: Interpretation: Twelve-lead EKG obtained at 1520 reviewed at 1520 demonstrates normal sinus rhythm with a ventricular rate of 99 bpm, MT interval 144, QRS duration 80, QT 308 QTc [address] elevation or depression to demonstrate acute ischemia or infarction at present. Discharge Plan Discharge Patient Disposition: Home Clinical Impression: Influenza Fever Qualifiers: Fever type: unspecified Qualified Code(s): R50.9 - Fever, unspecified Condition: Stable Prescriptions: New benzonatate 200 mg capsule 200 mg PO TID Qty: 30 0RF albuterol sulfate 90 mcg/actuation HFA aerosol inhaler 2 inh inhalation Q6H PRN (Reason: shortness of breath or wheezing) Qty: 8.5 0RF Tamiflu 75 mg capsule 75 mg PO BID 5 Days Qty: 10 0RF Discharge Orders: Discharge ED (Routine); Ordered 07/31/23 Ordered By: Wily Heath Referrals: Pippa Wu PA [Primary Care Provider] - Discharge Diet: Advance as tolerated Discharge Activity: Resume usual activity Patient Instructions: Opioid Safety, Pain Management Activity Restrictions/Additional Instructions: Activity Restrictions/Additional Instructions: Thank you for choosing [facility] for your healthcare needs today. Please realize that you were seen in the Emergency Department and that we are providing you with an emergency medical screening exam and this may not be a complete and all inclusive of all the testing and or medical work-up that you may need to determine your ailment or severity of your illness. It is very important that you follow-up as instructed with your Primary care provider or Specialist for additional evaluation and to discuss your medical treatment plan. You may return to the Emergency Department should you have concerns or if your condition changes or worsens in any way. Coding Level of Care Code ED Patrol Commander for Rosina Valencia
[2023-07-31 15:30] VITALS: BP 137/85; PULSE 94; O2SAT 99
[2023-07-31 16:00] VITALS: BP 143/89; PULSE 108; O2SAT 97
[2023-07-31 16:10] LABS: Basophils # 0.1 10^3/uL (0.0-0.1); Basophils % 0.6 %; Eosinophils % 0.5 %; Hematocrit 43.7 % (37-53); Lymphocytes # 1.9 10^3/uL (0.8-4.8); Lymphocytes % 21.6 %; Mean Corpuscular Hemoglobin 32.5 pg (27-33); Mean Corpuscular Volume 98.6 fl (82-101); Monocytes # 0.6 10^3/uL (0.2-0.9); Monocytes % 7.2 %; Neutrophils # 6.07 10^3/uL (1.8-7.7); Neutrophils % 69.9 %; Nucleated Red Blood Cells % 0 %; Platelet Count 195 10^3/cmm (157-399); Red Blood Count 4.43 10^6/uL (3.85-5.65); Red Cell Distribution Width 12.9 % (12.1-15.1); White Blood Count 8.67 10^3/uL (3.29-11.43)
[2023-07-31 16:11] LABS: Influenza A by IFA positive (Negative); Influenza B by IFA negative (Negative)
[2023-07-31 16:14] LABS: SARS Covid-2 Antigen negative (Negative)
[2023-07-31 16:19] LABS: Alanine Aminotransferase 10 U/L (0-41); Albumin Level 3.8 g/dL (3.5-5.2); Alkaline Phosphatase 95 U/L (40-130); Anion Gap 14.2 (5-19); Aspartate Amino Transferase 16 U/L (0-40); Blood Urea Nitrogen 11 mg/dL (6-20); Calcium 8.9 mg/dL (8.5-10.5); Carbon Dioxide 25 mmol/L (22-29); Chloride 96 mmol/L (98-107); Globulin 2.9 g/dL (1.3-4.6); Glucose 150 mg/dL (65-115); Osmolality Calculated 274 mOsm/kg (285-295); Potassium 4.2 mmol/L (3.5-5.1); Sodium 131 mmol/L (136-145); Total Bilirubin 0.2 mg/dL (0.15-1.2); Total Protein 6.7 g/dL (6.6-8.7)
[2023-07-31 16:30] VITALS: BP 140/93; PULSE 113; O2SAT 96
[2023-07-31] MEDS: acetaminophen 500 mg Tablet 1000 MG PO (17:37)
[2023-07-31 17:41] VITALS: BP 124/71; PULSE 121; O2SAT 97
== END 2023-07-31 17:42 | disposition home or self-care (01) ==
PROVIDERS: Emergency Provider Internal Medicine; PCP Physician Assistant
DX: J11.1 Influenza due to unidentified influenza virus with other respiratory manifestations (principal); Z11.52 Encounter for screening for COVID-19; Z72.0 Tobacco use
CPT/HCPCS: 36415; 71046; 80053; 85025; 87426; 87804; 99284

== ENCOUNTER 2023-09-07 17:03 | Emergency (ER) | payer OTHER, SELFPAY ==
[2023-09-07 17:07] VITALS: BP 197/109; PULSE 105; RESP 16; TEMP 36.7; O2SAT 99; BMI 18.8
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
--- NOTE | 2023-09-07 17:28 | XRR_ITS ---
PROCEDURE INFORMATION: Exam: XR Left Finger(s) Exam date and time: 09/07/2023 5:34 PM Age: 53 years old Clinical indication: Pain; Finger(s); Left; Patient HX: Blister on lt index finger; Additional info: R/O fb distal area, index finger TECHNIQUE: Imaging protocol: Radiologic exam of the left fingers. Views: Minimum 2 views. COMPARISON: CR (UP EXM, ) 04/12/2022 8:35 AM FINDINGS: Bones/joints: Partially evaluated plate and screw fixation of the distal radius without evidence for acute surgical complication. Redemonstrated chronic posttraumatic change of the distal left 5th finger consistent with tuft injury. There is mild scattered degenerative change of the visualized osseous structures. Soft tissues: There is circumferential swelling of the left index finger. Diffuse soft tissue reticulation of the left index finger. There are nonspecific punctate radiodensities appreciated in the palmar soft tissues just inferior to the distal interphalangeal joint. XR/XR finger LT min 2V [id number] IMPRESSION: Diffuse soft tissue swelling of the left index finger with soft tissue reticulation and punctate radiodensities, suspicious for foreign bodies, appreciated at the palmar tissues of the distal interphalangeal joint, correlate with physical history and exam for penetrating injury, infection, and residual foreign bodies.
[2023-09-07] MEDS: lidocaine 2% INJ 20 mL MDV (mL) 4 ML INJECTION (18:36)
[2023-09-07] MEDS: sulfamethoxazole-trimeth DS 160-800 mg Tablet 1 TAB PO (18:36)
== END 2023-09-07 18:51 | disposition home or self-care (01) ==
PROVIDERS: Emergency Provider Nurse Practitioner; PCP Physician Assistant
DX: L03.012 Cellulitis of left finger (principal); Z72.0 Tobacco use
CPT/HCPCS: 64450; 73140; 99283; A6446

== ENCOUNTER 2023-11-24 08:01 | Outpatient (CLI) | payer OTHER, SELFPAY ==
--- NOTE | 2023-11-24 08:08 | CT_ITS ---
WS: [id number] CT ABDOMEN AND PELVIS WITH AND WITHOUT CONTRAST HISTORY: MICROSCOPIC HEMATURIA TECHNIQUE: Unenhanced 5 mm axial imaging first performed through the abdomen. Post contrast imaging t hrough the abdomen and pelvis. Oral contrast has not been provided. Sagittal and coronal reformats a re submitted. All CT scans at [facility] use at least one of these dose optimization techniqu es: automated exposure control; mA and/or kV adjustment per patient size (includes targeted exams whe re dose is matched to clinical indication); or iterative reconstruction. CONTRAST: Omnipaque 350; 95 mL IV. DLP: 519.26 mGy.cm COMPARISON: 12/11/2020 Emphysematous changes at the lung bases. No mass or pneumonia. Heart size is normal. Very small hiata l hernia. Normal size liver. Normal portal vein. There are a few scattered too small to characterize hypodensit ies in the liver. Negative gallbladder. Normal spleen. No adrenal mass. Normal pancreas. Mild atheros clerosis aorta. Kidneys are normal size. No obstruction. No calcification within either renal pelvis. Ureters are nor mal size. No cyst or solid enhancing mass. No uroepithelial lesion is identified. The urinary bladder moderately well distended. There are no enhancing lesions on the postcontrast images within the urin yolanda bladder. The bladder wall is slightly thickened due to only partial distention. Normal sized stomach. No small bowel obstruction. No colon obstruction. Increased fecal retention thr oughout the colon. Prior appendectomy. No ascites or adenopathy. L4 anterolisthesis by 4 mm. Marked facet joint arthritis at L4-5. CT/CT abdomen pelvis wo/w [id number] IMPRESSION: 1. No renal obstruction or calcification. 2. No enhancing uroepithelial lesions identified. No abnormality within the ur inary bladder. 3. Prior appendectomy. 4. Mild constipation. 5. No ascites or adenopathy.
[2023-11-24] MEDS: iohexol 350 mg/mL 100 mL Btl IV (08:37)
== END 2023-11-24 08:02 | disposition home or self-care (01) ==
LOC: RAD 08:01
PROVIDERS: PCP Physician Assistant; Visit Provider Physician Assistant
DX: R31.29 Other microscopic hematuria (principal); K59.00 Constipation, unspecified
CPT/HCPCS: 74178; Q9967

== ENCOUNTER 2024-10-07 11:50 | Emergency (ER) | payer OTHER, SELFPAY ==
[2024-10-07 12:18] VITALS: BP 134/77; PULSE 95; RESP 18; TEMP 36.7; O2SAT 97; BMI 23.1
--- NOTE | 2024-10-07 12:32 | XR_ITS ---
WS: [id number] 3 views of the right second finger, 10/07/2024 Clinical Data: dog bite Comparison: None. Findings: No fractures or dislocations are seen. The soft tissues are normal. The joint spaces are not remarkable. No radiopaque foreign bodies are seen. XR/XR finger RT min 2V [id number] Impression: Negative right second finger.
--- NOTE | 2024-10-07 12:32 | XR_ITS ---
WS: [id number] Right forearm, AP and lateral views, 10/07/2024 Clinical Data: dog bite Comparison: None. Findings: No fractures or dislocations are seen. The soft tissues are normal. The visualized right wrist and elbow show no obvious abnormalities. No radiopaque foreign bodies are seen. XR/XR forearm RT 2V [id number] Impression: Negative right forearm.
== END 2024-10-07 13:34 | disposition left against medical advice (07) ==
LOC: ER 11:55
PROVIDERS: Emergency Provider Family Medicine; PCP Physician Assistant
DX: S61.451A Open bite of right hand, initial encounter (principal); W54.0XXA Bitten by dog, initial encounter
CPT/HCPCS: 73090; 73140

== ENCOUNTER → 2024-10-17 12:41 | Outpatient (BNVA) | payer OTHER, SELFPAY | PROVIDERS: PCP Physician Assistant; Visit Provider Internal Medicine | DX: R07.9 Chest pain, unspecified (principal) | CPT/HCPCS: 93005 ==

== ENCOUNTER 2025-01-06 08:57 | Emergency (ER) | payer MEDICAID, SELFPAY ==
[2025-01-06 09:33] VITALS: BP 156/81; PULSE 85; RESP 16; TEMP 36.8; O2SAT 98
[2025-01-06 12:02] VITALS: PULSE 84; RESP 16; O2SAT 96
--- NOTE | 2025-01-06 12:10 | W.ED.GENADLT ---
HPI - General Adult General: Chief complaint: Upper Respiratory Infection Stated complaint: scratchy throat Time Seen by Provider: 01/06/25 12:01 Source: patient Mode of arrival: ambulatory Limitations: no limitations History of Present Illness: Patient is a 54-year-old male presents to ED today with a complaint of a mildly uncomfortable and scratchy throat over the past 2 to 3 days. He is not having any trouble eating, drinking, swallowing. No recent URI-like symptoms. No fevers. Onset (ago): day(s) Location: mouth (throat) Severity: mild Quality: other (scratchy, uncomfortable) Pain Consistency: constant Relieving factors: none Exacerbating factors: none Associated symptoms: Reports no associated symptoms; Deny headache(s), malaise, nausea, rash or vomiting Treatments prior to arrival: none Related Data Home Medications ?Medication ?Instructions ?Recorded ?Confirmed budesonide 160 mcg-glycopyr 9 2 inh inhalation BID 10/17/24 11/29/24 mcg-formot 4.8 mcg/actuation HFA inhaler (PharmAssistant) Previous Rx's ?Medication ?Instructions ?Recorded albuterol sulfate 90 mcg/actuation 2 inh inhalation Q6H PRN shortness 07/31/23 aerosol inhaler of breath or wheezing #8.5 grams metoprolol succinate 50 mg 50 mg PO DAILY #90 tabs 10/17/24 tablet,extended release 24 hr clotrimazole 10 mg nahomi 10 mg mucous membrane 5XD 14 days 01/06/25 #70 tabs Allergies Allergy/AdvReac Type Severity Reaction Status Date / Time diphenhydramine (From Allergy ADR-Drowsy Verified 11/29/24 14:28 Benadryl) Review of Systems Const: Denies: fever(s), chills, body aches, fatigue or malaise ENMT: Reports: throat pain; Denies: uvular edema, enlarged tonsils, odynophagia, hoarseness, swelling of lips/tongue, oral sores, bleeding gums or ear or mastoid pain GI: Denies: nausea or vomiting Musc: Denies: neck pain Skin/Breast: Denies: rash Neuro: Denies: headache(s) PFS ED PFSH: Medical History Fracture of left distal radius Family history of prostate cancer in father Chronic prostatitis Microscopic hematuria Hx of shortness of breath Sciatica Encephalopathy Surgical History Hx of appendectomy Family History Mother Hypertension Diabetes Father Stroke Diabetes Cancer PROSTATE, AT AGE 75 Denies family history of CAD (coronary artery disease) Clotting disorder Dementia Chronic kidney disease (CKD) Suicide Anesthesia complication Bleeding disorder Lung disease Social History Smoking and tobacco/nicotine status: former use of tobacco/nicotine Alcohol intake: never Substance/Drug Use: current Marital status: / Current occupational status: employed Physical Exam Const: COMMON NORMALS: no acute distress, average body habitus, no limitations, healthy appearing, alert and well nourished HENMT: FACE & SINUS: normal facial exam MOUTH: lip normal, Normal salivary glands and ducts present and other (thrush to tongue, bilateral buccal mucosa, few on uvula) TEETH & GINGIVA: Yes poor dentition THROAT: posterior oropharynx normal and tonsils normal; no uvular edema Neck/C-Spine: COMMON NORMALS: no lymphadenopathy Neuro: SENSORIUM/ORIENTATION: Yes alert Course Vital Signs: Vital signs: Vital Signs Temperature 98.2 F 01/06/25 09:33 Pulse Rate 84 01/06/25 12:02 Respiratory Rate 16 01/06/25 12:02 Blood Pressure 156/81 01/06/25 09:33 Pulse Oximetry 96 01/06/25 12:02 Oxygen Delivery Me thod Room Air 01/06/25 12:02 [facility] - General Adult Medical Decision Making Clinically patient has thrush. He does use a steroid inhaler twice daily. Recommended rinsing his mouth out after use-he had not been doing this. Will place him on clotrimazole troches over the next 2 weeks. He can follow-up with primary care if symptoms have not resolved. Medical Records I reviewed the patient's medical records. No radiology studies performed this visit Discharge Plan Discharge Patient Disposition: Home Clinical Impression: Oral thrush Condition: Stable Prescriptions: New clotrimazole 10 mg nahomi 10 mg mucous membrane 5XD 14 Days Qty: 70 0RF No Action Breztri Aerosphere 160-9-4.8 mcg/actuation HFA aerosol inhaler 2 inh inhalation BID metoprolol succinate 50 mg tablet extended release 24 hr 50 mg PO DAILY Qty: 90 3RF albuterol sulfate 90 mcg/actuation HFA aerosol inhaler 2 inh inhalation Q6H PRN (Reason: shortness of breath or wheezing) Qty: 8.5 0RF Discharge Orders: Discharge ED (Routine); Ordered 01/06/25 Ordered By: Makeda Morrow Referrals: Pippa Wu PA [Primary Care Provider, [facility] [employer]] Patient Instructions: Oral Candidiasis (ED), Thrush - Adult Activity Restrictions/Additional Instructions: Make sure to rinse your mouth thoroughly after using your steroid inhaler twice daily. After rinsing your mouth you may then use the clotrimazole troches-these are 5 times daily x 2 weeks. Please follow-up with primary care if symptoms are not fully resolved after this treatment course. Print Language: Botswanan Coding Level of Care Code ED Materials Management Supervisor for Rosina Valencia
[2025-01-06 12:22] VITALS: PULSE 97; O2SAT 97
== END 2025-01-06 12:23 | disposition home or self-care (01) ==
PROVIDERS: Emergency Provider Physician Assistant; PCP Physician Assistant
DX: B37.0 Candidal stomatitis (principal); Z87.891 Personal history of nicotine dependence
CPT/HCPCS: 99283

== ENCOUNTER 2025-03-02 08:22 | Outpatient (CLI) | payer OTHER, MEDICAID, SELFPAY ==
--- NOTE | 2025-03-02 08:28 | CT_ITS ---
WS: [id number] LDCT LUNG CANCER SCREENING TECHNIQUE: Noncontrast CT of the chest with coronal and sagittal reformatted images. CLINICAL INFORMATION: NICOTINE DEPENDENCE,CIGARETTES COMPARISON: 2021 DLP: 51.59 mGy.cm DIvol: Mean CTDIvol: 0.90 (mGy) All CT scans at [facility] use at least one of these dose optimization techniques: automated exposure control; mA and/or kV adjustment per patient size (includes targeted exams where dose is matched to clinical indication); or iterative reconstruction. FINDINGS: Moderate chronic emphysematous changes. Normal caliber thoracic aorta. No mediastinal or hilar lymphadenopathy. No axillary lymphadenopathy. Tiny noncalcified nodule RIGHT upper lobe. No suspicious pulmonary parenchymal abnormalities. Fibrosis in the lung apices. Tiny esophageal hiatal hernia. Adrenal glands are normal. Tiny RIGHT hepatic cyst. Normal GE junction. Mild thoracic curve. Mild thoracic kyphosis. Chronic anterior wedging in the mid lower thoracic spine with endplate Schmorl's nodes. CT/CT lung screening [id number] IMPRESSION: LUNG-RADS: 2-Benign Appearance or Behavior FOLLOW UP: 12 Month: Continue annual screening with LDCT
== END 2025-03-02 08:23 | disposition home or self-care (01) ==
LOC: RAD 08:23
PROVIDERS: PCP Physician Assistant; Visit Provider Physician Assistant
DX: Z12.2 Encounter for screening for malignant neoplasm of respiratory organs (principal); F17.210 Nicotine dependence, cigarettes, uncomplicated; J43.9 Emphysema, unspecified; R91.1 Solitary pulmonary nodule; J84.10 Pulmonary fibrosis, unspecified; M43.9 Deforming dorsopathy, unspecified; M40.204 Unspecified kyphosis, thoracic region; M51.44 Schmorl's nodes, thoracic region
CPT/HCPCS: 71271

== ENCOUNTER → 2025-03-31 11:16 | Outpatient (BNVA) | payer OTHER, MEDICAID, SELFPAY | PROVIDERS: PCP Physician Assistant; Visit Provider Internal Medicine | DX: J44.9 Chronic obstructive pulmonary disease, unspecified (principal); R06.00 Dyspnea, unspecified | CPT/HCPCS: 36415; 82103; 85025 ==

== ENCOUNTER 2025-04-19 14:27 | Emergency (ER) | payer OTHER, MEDICAID, SELFPAY ==
[2025-04-19 14:28] VITALS: BP 150/81; PULSE 113; TEMP 36.8; O2SAT 97
--- NOTE | 2025-04-19 14:32 | ECG_ITS ---
[facility]: 2025-[facility]19 Pat Name: Joe Ramirez Department: Room: Gender: Male Surg Rn: : 1970 Requested By: Jr Martinez Order Number: [id number] Armando MD: Shai Dangelo M.D. Measurements Intervals [place] Rate: 112 P: 73 ID: [id number] QRS: 70 QRSD: 89 T: 58 QT: 321 QTc: 439 Interpretive Statements SINUS TACHYCARDIA POSSIBLE LEFT ATRIAL ENLARGEMENT [-0.1mV P-WAVE IN V1/V2] NONSPECIFIC ST & T-WAVE ABNORMALITYS Compared to ECG 10/17/2024 12:52:35 T-wave abnormality now present Sinus rhythm no longer present Electronically Signed On 04-20-2025 08:36:31 CDT by Shai Dangelo M.D. [id number]
--- NOTE | 2025-04-19 14:37 | XR_ITS ---
WS: [id number] XR chest 1V portable [id number] REASON FOR EXAM: cp FINDINGS: Chest is unchanged compared to 02/13/2025. Mild hyperexpansion of the lungs. Heart and mediastinum are within normal limits. Calcified granulomatous disease bilaterally. No acute pulmonary parenchymal or pleural abnormality. XR/XR chest 1V portable [id number] IMPRESSION: No acute chest abnormality.
--- NOTE | 2025-04-19 15:11 | W.ED.CHESTPA ---
HPI - Chest Pain General: Chief Complaint: Chest Pain Stated Complaint: Chest pains Time Seen by Provider: 04/19/25 15:01 Source: patient Mode of arrival: ambulatory Limitations: no limitations History of Present Illness: Patient is a 54-year-old male who presents the emergency department complaining of chest pain for 1 week. States that he has history of similar episodes in the past, but never for this long and never severe. No radiation but he states his upper extremities have been weak. Notes associated shortness of breath. States he is set to have stress test and echocardiogram later this month. Denies any specific alleviating or exacerbating factor to his pain, states he has a history of acid reflux but this feels different. He is a current everyday smoker. Denies personal cardiac history. He does have a history of COPD, does not use oxygen at home. Describes the pain as sharp and constant. Minimally tachycardic at time of examination, rest of his vitals stable. No abdominal pain, vomiting, dizziness, lightheadedness, syncope, or other symptoms noted at this time. MD complaint: chest pain Onset (ago): week(s) (1) Timing of current episode: constant Prior episodes: Yes Onset: during rest Pain location: substernal Severity: similar to previous episodes Quality: sharp Relieving factors: nothing Exacerbating factors: nothing Associated symptoms: Reports dyspnea; Deny abdominal pain, fever(s), nausea, palpitations or vomiting Treatment prior to arrival: none Related Data Home Medications ?Medication ?Instructions ?Recorded ?Confirmed budesonide 160 mcg-glycopyr 9 2 inh inhalation BID 10/17/24 04/19/25 mcg-formot 4.8 mcg/actuation HFA inhaler (Breztri Aerosphere) metoprolol succinate 100 mg 100 mg PO DAILY 04/19/25 04/19/25 tablet,extended release 24 hr naltrexone 50 mg tablet 50 mg PO BEDTIME 04/19/25 04/19/25 naltrexone microspheres 380 mg 380 mg IM .[id number] 04/19/25 04/19/25 intramuscular suspension,extended release (Vivitrol) sildenafil 100 mg tablet 100 mg PO DAILY PRN Erectile 04/19/25 04/19/25 Dysfunction Previous Rx's ?Medication ?Instructions ?Recorded albuterol sulfate 90 mcg/actuation 2 inh inhalation Q6H PRN shortness 07/31/23 aerosol inhaler of breath or wheezing #8.5 grams Allergies Allergy/AdvReac Type Severity Reaction Status Date / Time diphenhydramine (From Allergy ADR-Drowsy Verified 04/19/25 14:36 Benadryl) Review of Systems General: Reports: 10 or more systems reviewed and unremarkable except in HPI and below Const: Denies: fever(s), chills or fatigue Eyes: Denies: change in vision ENMT: Denies: throat pain, ear or mastoid pain or nasal discharge Card: Reports: chest pain; Denies: palpitations, swelling of feet/ankles or lightheadedness Resp: Reports: dyspnea; Denies: productive cough or wheezing GI: Denies: abdominal pain, nausea, vomiting, diarrhea or constipation : Denies: flank pain, difficulty urinating, dysuria or urinary frequency Musc: Denies: neck pain, back pain or joint pain Skin/Breast: Denies: rash Neuro: Reports: weakness in extremities (Bilateral upper extremity); Denies: headache(s) or numbness in extremities PFSH ED PFSH: Medical History Smoker Dyspnea COPD (chronic obstructive pulmonary disease) Fracture of left distal radius Family history of prostate cancer in father Chronic prostatitis Microscopic hematuria Hx of shortness of breath Sciatica Encephalopathy Surgical History Hx of appendectomy Family History Mother Hypertension Diabetes Father Stroke Diabetes Cancer PROSTATE, AT AGE 75 Denies family history of CAD (coronary artery disease) Clotting disorder Dementia Chronic kidney disease (CKD) Suicide Anesthesia complication Bleeding disorder Lung disease Social History Smoking and tobacco/nicotine status: current every day tobacco/nicotine user (5 cigarettes. per day X 20 years ) Alcohol intake: never Substance/Drug Use: current Marital status: / Current occupational status: employed Physical Exam Const: COMMON NORMALS: no acute distress, patient oriented x3 and no limitations GENERAL APPEARANCE: cooperative, comfortable and well developed ORIENTATION/CONSCIOUSNESS: Yes awake, Yes oriented to person, Yes oriented to place and Yes oriented to time OTHER: Nontoxic-appearing HENMT: COMMON NORMALS: normocephalic, atraumatic and hearing grossly normal bilaterally HEAD & SCALP: normocephalic and atraumatic Eye: COMMON NORMALS: Equal, round and reactive pupils present, EOMs intact bilaterally and conjunctivae normal CONJUNCTIVA: Yes conjunctivae normal PUPIL: Yes Equal, round and reactive pupils present Neck/C-Spine: COMMON NORMALS: full ROM, supple and no JVD Resp: COMMON NORMALS: normal respiratory effort, No retractions, No use of accessory muscles and clear to auscultation bilaterally AUSCULTATION: clear to auscultation bilaterally Cardio: COMMON NORMALS: no JVD, regular rhythm, No clicks present (Cardio), No murmurs present (Cardio) and No rub (Cardio) RATE: tachycardic RHYTHM: regular rhythm GI: COMMON NORMALS: Normal to inspection, nondistended, normoactive bowel sounds present and Soft to palpation AUSCULTATION: Yes normoactive bowel sounds PALPATION: Yes Soft to palpation and Yes Tenderness to palpation present (GI) (Epigastric) RECTAL EXAM: Yes deferred Extremity: COMMON NORMALS: normal to inspection, full ROM and capillary refill normal Neuro: COMMON NORMALS: patient oriented x3, moves all extremities, no focal motor deficits and no sensory deficits noted SENSORIUM/ORIENTATION: Yes oriented to person, Yes oriented to place and Yes oriented to time Psych: COMMON NORMALS: mental status grossly normal and Normal thought process present THOUGHT PROCESS: Normal thought process present Skin: COMMON NORMALS: no rashes or lesions noted GENERAL SKIN EXAM: no rashes or lesions noted Course Vital Signs: Vital signs: Vital Signs Temperature 98.2 F 04/19/25 14:28 Pulse Rate 113 H 04/19/25 14:28 Blood Pressure 150/81 04/19/25 14:28 Pulse Oximetry 97 04/19/25 14:28 Oxygen Delivery Me thod Room Air 04/19/25 14:28 MDM - Chest Pain Medical Decision Making Patient presenting with chest pain, history of similar, current episode been going on for a week. He is currently scheduled to have stress test and echocardiogram as an outpatient. Clinically nontoxic-appearing on exam, minimally tachycardic on arrival but he has a history of this and this is noted to normalize throughout his ED stay. Also normalized after being given GI cocktail as he did have reproducible epigastric tenderness to palpation on exam as well as a history of GERD. I do suspect GERD, as this is supported by unremarkable cardiac workup to include normal chest x-ray, unremarkable EKG that is reviewed with physician, negative troponin, and rest of labs unremarkable and cannot explain the chest pain he has been having. He also reportedly did not go to court today to get his chest pain checked out, as he is currently undergoing drug investigation/rehabilitation. Regardless he is stable for discharge home and encouraged to continue outpatient therapy and return with any new or worsening. Lab Data 04/19/25 15:08 04/19/25 15:08 Radiology Impressions Chest X-Ray 04/19/25 14:37 IMPRESSION: No acute chest abnormality. Laboratory Results WBC 11.17 10^3/uL (3.29-11.43) 04/19/25 15:08 RBC 4.43 10^6/uL (3.85-5.65) 04/19/25 15:08 Hgb 14.70 g/dL (11.27-16.99) 04/19/25 15:08 Hct 43.9 % (37-53) 04/19/25 15:08 MCV 99.1 fl (82-101) 04/19/25 15:08 MCH 33.2 pg (27-33) H 04/19/25 15:08 MCHC 33.5 g/dL (30-55) 04/19/25 15:08 RDW 12.8 % (12.1-15.1) 04/19/25 15:08 Plt Count 295 10^3/cmm (157-399) 04/19/25 15:08 MPV 9.9 fL (7.4-10.4) 04/19/25 15:08 Neut % (Auto) 73.1 % 04/19/25 15:08 Lymph % (Auto) 16.6 % 04/19/25 15:08 Winkler % (Auto) 7.9 % 04/19/25 15:08 Eos % (Auto) 1.2 % 04/19/25 15:08 Baso % (Auto) 0.8 % 04/19/25 15:08 Neut # (Auto) 8.18 10^3/uL (1.8-7.7) H 04/19/25 15:08 Lymph # (Auto) 1.9 10^3/uL (0.8-4.8) 04/19/25 15:08 Winkler # (Auto) 0.9 10^3/uL (0.2-0.9) 04/19/25 15:08 Eos # (Auto) 0.1 10^3/uL (0.0-0.8) 04/19/25 15:08 Baso # (Auto) 0.1 10^3/uL (0.0-0.1) 04/19/25 15:08 Nucleated RBC % (auto) 0 % 04/19/25 15:08 Nucleated RBCs # 0.0 /100WBC 04/19/25 15:08 PT 13.00 SECONDS (12.1-14.9) 04/19/25 15:08 INR 0.92 (0.8-1.2) 04/19/25 15:08 Sodium 138 mmol/L (136-145) 04/19/25 15:08 Potassium 4.1 mmol/L (3.5-5.1) 04/19/25 15:08 Chloride 101 mmol/L (98-107) 04/19/25 15:08 Carbon Dioxide 25 mmol/L (22-29) 04/19/25 15:08 Anion Gap 16.1 (5-19) 04/19/25 15:08 BUN 16 mg/dL (6-20) 04/19/25 15:08 Creatinine 0.8 mg/dL (0.7-1.2) 04/19/25 15:08 GFR Calculation 101.5 mL/min (90-130) 04/19/25 15:08 Glucose 91 mg/dL (65-115) 04/19/25 15:08 Calculated Osmolality 287 mOsm/kg (285-295) 04/19/25 15:08 Calcium 9.7 mg/dL (8.5-10.5) 04/19/25 15:08 Total Bilirubin 0.2 mg/dL (0.15-1.2) 04/19/25 15:08 AST 14 U/L (0-40) 04/19/25 15:08 ALT 11 U/L (0-41) 04/19/25 15:08 Alkaline Phosphatase 100 U/L (40-130) 04/19/25 15:08 Troponin T Baseline < 6 ng/L (0-15) 04/19/25 15:08 Total Protein 7.5 g/dL (6.6-8.7) 04/19/25 15:08 Albumin 4.8 g/dL (3.5-5.2) 04/19/25 15:08 Globulin 2.7 g/dL (1.3-4.6) 04/19/25 15:08 Lipase 17 U/L (13-60) 04/19/25 15:08 All radiology interpretation(s) finalized by discharge Discharge Plan Discharge Patient Disposition: Home Clinical Impression: Chest pain Qualifiers: Chest pain type: unspecified Qualified Code(s): R07.9 - Chest pain, unspecified Condition: Stable Prescriptions: No Action Breztri Aerosphere 160-9-4.8 mcg/actuation HFA aerosol inhaler 2 inh inhalation BID naltrexone 50 mg tablet 50 mg PO BEDTIME metoprolol succinate 100 mg tablet extended release 24 hr 100 mg PO DAILY sildenafil 100 mg tablet 100 mg PO DAILY PRN (Reason: Erectile Dysfunction) Vivitrol 380 mg suspension,extended rel recon 380 mg IM .[id number] albuterol sulfate 90 mcg/actuation HFA aerosol inhaler 2 inh inhalation Q6H PRN (Reason: shortness of breath or wheezing) Qty: 8.5 0RF Discharge Orders: Discharge ED (Routine); Ordered 04/19/25 Ordered By: Joe Youssef Referrals: Pippa Wu PA [Primary Care Provider, [facility] [employer] Processing Worker] Patient Instructions: Chest Pain (ED), Patient Portal & Donna Instructions Activity Restrictions/Additional Instructions: Continue outpatient follow-up for echocardiogram and stress testing. Return with any recurrence of chest pain, shortness of breath, lightheadedness or dizziness, or any other concerns. Please attend court as scheduled. Print Language: Russian Coding Level of Care Code ED Aircraft Navigator for Chg Fwd Heart Score HEART Score Components History: Slightly Suspicous EKG: Non-specific Changes Age: 45-64 yrs Risk Factors: 1 or 2 Risk Factors Troponin: Baseline Trop <16 ng/L HEART Score RESULT HEART Score: 3
[2025-04-19] MEDS: lidocaine 2% viscous 15 ML, aluminum-mag hydrox-simethicon 30 ML, sucralfate oral liq 1 GM PO (15:34)
[2025-04-19 15:39] LABS: Hematocrit 43.9 % (37-53); Hemoglobin 14.70 g/dL (11.27-16.99); Mean Corpuscular HGB Conc 33.5 g/dL (30-55); Mean Corpuscular Hemoglobin 33.2 pg (27-33); Mean Corpuscular Volume 99.1 fl (82-101); Nucleated Red Blood Cells % 0 %; Platelet Count 295 10^3/cmm (157-399); Red Blood Count 4.43 10^6/uL (3.85-5.65); White Blood Count 11.17 10^3/uL (3.29-11.43)
[2025-04-19 15:54] LABS: INR 0.92 (0.8-1.2); Prothrombin Time 13.00 SECONDS (12.1-14.9)
[2025-04-19 15:57] LABS: Alanine Aminotransferase 11 U/L (0-41); Albumin Level 4.8 g/dL (3.5-5.2); Alkaline Phosphatase 100 U/L (40-130); Anion Gap 16.1 (5-19); Aspartate Amino Transferase 14 U/L (0-40); Blood Urea Nitrogen 16 mg/dL (6-20); Calcium 9.7 mg/dL (8.5-10.5); Carbon Dioxide 25 mmol/L (22-29); Chloride 101 mmol/L (98-107); Creatinine Clr Calc Pharmacy 95.1824; Globulin 2.7 g/dL (1.3-4.6); Glucose 91 mg/dL (65-115); Lipase 17 U/L (13-60); Osmolality Calculated 287 mOsm/kg (285-295); Potassium 4.1 mmol/L (3.5-5.1); Sodium 138 mmol/L (136-145); Total Protein 7.5 g/dL (6.6-8.7)
[2025-04-19 15:58] LABS: Troponin(5th) Baseline < 6 ng/L (0-15)
[2025-04-19 16:16] VITALS: BP 128/82; PULSE 77; O2SAT 98
== END 2025-04-19 16:17 | disposition home or self-care (01) ==
PROVIDERS: Emergency Medicine; Emergency Provider Physician Assistant; PCP Physician Assistant
DX: R07.9 Chest pain, unspecified (principal); F17.210 Nicotine dependence, cigarettes, uncomplicated; J44.9 Chronic obstructive pulmonary disease, unspecified
CPT/HCPCS: 36415; 71045; 80053; 83690; 84484; 85025; 85610; 93005; 99285; J9999

== ENCOUNTER 2025-04-26 06:43 | Outpatient (CLI) | payer OTHER, MEDICAID, SELFPAY ==
[2025-04-26 07:31] VITALS: PULSE 72; RESP 18; O2SAT 98
== END 2025-04-26 06:44 | disposition home or self-care (01) ==
PROVIDERS: PCP Physician Assistant; Visit Provider Internal Medicine
DX: J44.9 Chronic obstructive pulmonary disease, unspecified (principal); R06.00 Dyspnea, unspecified; J98.8 Other specified respiratory disorders
CPT/HCPCS: 94060; 94726; 94729; J7613

== ENCOUNTER 2025-05-02 06:10 | Outpatient (CLI) | payer OTHER, MEDICAID, SELFPAY ==
--- NOTE | 2025-05-02 08:30 | USCV_ITS ---
Joe Ramirez Age: 54 Gender: M : 1970 Exam Date: 05/02/2025 06:29 Ordering Phys: Shai Dangelo M.D ([email or web address]) Technologist: Exam [place] [facility] [place]ication: cp ? ai BP: 140 / 75 HR: 74 Rhythm: Sinus Technical Quality: Adequate MEASUREMENTS (Male / Female) Normal Values 2D ECHO LV Diastolic Diameter PLAX 4.3 cm 4.2 - 5.9 / 3.9 - 5.3 cm IVS Diastolic Thickness 1.3 cm 0.6 - 1.0 / 0.6 - 0.9 cm IVS Systolic Thickness 1.8 cm LVPW Diastolic Thickness 1.1 cm 0.6 - 1.0 / 0.6 - 0.9 cm LVPW Systolic Thickness 1.4 cm LVOT Diameter 2.0 cm LV Ejection Fraction 2D Teich 64.1 % LV Ejection Fraction MOD 4C 51.1 % LV Ejection Fraction MOD 2C 63.6 % LV Ejection Fraction 2C AL 64.6 % LA Diameter 2.8 cm RA Systolic Volume 4C AL 25.8 ml RA Systolic Volume 4C MOD 25.3 ml LA Sys Volume AL 37.9 cm cubed LA Sys Volume Index AL 21.8 cm cubed/m squared Aorta at Sinotubular Diameter 2.7 cm IVC Diameter 1.5 cm M-MODE LA Ao Ratio MM 1.0 AV Cusp Separation MM 2.1 cm DOPPLER AV Peak Velocity 88.0 cm/s LVOT Peak Velocity 80.0 cm/s AV Area Cont Eq vti 3.7 cm squared AV Area Cont Eq pk 3.0 cm squared TV Peak Velocity 179.0 cm/s TR Peak Velocity 192.0 cm/s TR Peak Gradient 14.7 mmHg TV Peak E Velocity 106.0 cm/s PV Peak Velocity 104.0 cm/s FINDINGS Left Ventricle Normal left ventricular size, systolic function and wall thickness, with no regional wall motion abnormalities. Left ventricular ejection fraction is estimated at 60 %. In the absence of gallbladder data diastolic function cannot be measured Right Ventricle Normal right ventricular size and systolic function. Right Atrium Normal right atrial size. Left Atrium Normal left atrial size. IA Septum Normal appearance of the interatrial septum. Mitral Valve Mildly thickened mitral valve. No mitral valve stenosis. Trace mitral valve regurgitation. Aortic Valve Mild aortic valve calcification. No aortic valve stenosis. Trace aortic valve regurgitation. Tricuspid Valve Normal tricuspid valve structure. No tricuspid valve stenosis or regurgitation. Normal pulmonary pressure. Pulmonic Valve Normal pulmonic valve structure. No pulmonic valve stenosis or regurgitation. Pericardium No pericardial effusion. Aorta Normal diameter of the aortic root and ascending thoracic aorta. IVC Normal IVC diameter. CONCLUSIONS Normal left ventricular size, systolic function and wall thickness, with no regional wall motion abnormalities. Left ventricular ejection fraction is estimated at 60 %. In the absence of gallbladder data diastolic function cannot be measured There is no pericardial effusion. No significant valvular abnormalities. Right atrial pressure is around 5 mm of mercury. Jasmina Antoine MD (Electronically Signed) Final Date: 11 May 2025 19:52 S
== END 2025-05-02 06:11 | disposition home or self-care (01) ==
LOC: RAD 06:11
PROVIDERS: PCP Physician Assistant; Visit Provider Internal Medicine
DX: R07.9 Chest pain, unspecified (principal); I05.9 Rheumatic mitral valve disease, unspecified; I35.8 Other nonrheumatic aortic valve disorders
CPT/HCPCS: 93306